=== PATIENT | female | born 1945 | race Two or more races ===

== ENCOUNTER 2016-12-31 20:58 | Inpatient (IN) | payer OTHER ==
--- NOTE | 2016-12-31 21:16 | EDPHY ---
H & P Stated Complaint: cough, asthma excaerbation Time Seen by Provider: 12/31/16 21:15 HPI/ROS: HPI: This is a 71-year-old female who presents with Chief Complaint: cough, asthma excaerbation Location: Chest Quality: Cough Duration: 2 weeks Signs and Symptoms: No fever, + dry hacking cough, no lower extremity edema, no chest pain, no palpitations Timing: Daily, worsening Severity: Moderate Context: Patient has a history heart valve replacement on Coumadin and asthma presents with her granddaughter for complaints of dry hacking cough for the last 2 weeks despite taking her medications consisting of furosemide, metoprolol , albuterol and Qvar inhalers. Patient denies fever but has had fatigue, decreased appetite and dull aching headache. No family members are sick and patient has not traveled outside of the country. She moved to [place] from [place] approximately 4 months ago. She denies any recent weight gain. She has never had a heart attack. Modifying Factors: Regular home medications for which patient is compliant Comment: ROS: see HPI Constitutional: No fever, no chills, no weight loss Eyes: No blurred vision Respiratory: No shortness of breath, no cough Cardiovascular: No chest pain Gastrointestinal: No nausea, no vomiting, no diarrhea Genitourinary: No dysuria Extremities: No myalgias Neurologic: No weakness, no numbness Skin: No rashes Hematologic: No bruising, no bleeding MEDICAL/SURGICAL/SOCIAL HISTORY: Medical history: Hypertension, asthma, chronic anticoagulation Surgical history: Heart valve replacement Social history: Lives with her child and grandchild. CONSTITUTIONAL: Ill-appearing elderly female, awake and alert, no obvious distress HEENT: Atraumatic and normocephalic, PERRL, EOMI. Tympanic membranes clear. Oropharynx clear, no exudate and moist pink mucosa. Airway patent. No lymphadenopathy. No meningismus. Cardiovascular: Normal S1/S2, regular rate, regular rhythm, without murmur rub or gallop. PULMONARY/CHEST: Symmetrical and nontender. Bilateral rales heard. Good air movement. No accessory muscle usage. Dry hacking cough noted. ABDOMEN: Soft, nondistended, nontender, no rebound, no guarding, no peritoneal signs, no masses or organomegaly. No CVAT. EXTREMITIES: 2/2 pulses, strength 5/5, no deformities, no clubbing, no cyanosis or edema. NEUROLOGICAL: no focal neuro deficits. GCS 15. SKIN: Warm and dry, no erythema. no rash. Good capillary refill. Source: Patient, Family (granddaughter), Quantitative Analyst Exam Limitations: No limitations - Medical/Surgical History Hx Asthma: Yes Hx Chronic Respiratory Disease: No Hx Diabetes: No Hx Cardiac Disease: Yes Hx Renal Disease: No Hx Cirrhosis: No Hx Alcoholism: No Hx HIV/AIDS: No Hx Splenectomy or Spleen Trauma: No Other PMH: asthma, - Social History Smoking Status: Never smoked Constitutional: Initial Vital Signs Temperature (C) 36.6 C 12/31/16 21:05 Heart Rate 96 12/31/16 21:05 Respiratory Rate 20 12/31/16 21:05 Blood Pressure 105/76 12/31/16 21:05 O2 Sat (%) 90 L 12/31/16 21:05 O2 Delivery Mode Room Air Allergies/Adverse Reactions: No Known Allergies Allergy (Unverified 12/31/16 21:02) Home Medications: Medication Instructions Recorded Albuterol 12/31/16 Combivent Respimat Inhal [place](*) 12/31/16 Coumadin 12/31/16 Furosemide 12/31/16 Metoprolol Succinate 12/31/16 Proair Hfa 12/31/16 Qvar 12/31/16 Spironolactone 12/31/16 Medical Decision Making - Diagnostics Imaging Results: Imaging Impressions Chest X-Ray 12/31/16 21:14 Impression: 1. Cardiomegaly versus pericardial effusion. No failure or fluid overload. 2. No pneumonia. ED Course/Re-evaluation: Chest x-ray, labs, IV and nebulizer medications ordered Vital signs reviewed upon arrival and O2 sats are 90% on room air. Differential includes CHF exacerbation 9: Chest x-ray via radiologist shows cardiomegaly versus pericardial effusion Labs reviewed; INR 3.04 ProBNP significantly elevated; given IV Lasix 40 mg as patient is new to the area no prior echocardiogram to determine LV function; will need one upon admission 2252: ED decision to consult for admission. Spoke with hospitalist, Dr. Michelle Huang, who kindly agrees to admit to observation status and provide further care Differential Diagnosis: Shortness of breath including but not limited to pulmonary infectious process, COPD, asthma, pulmonary embolus and congestive heart failure. - Data Points Laboratory Results: Laboratory Results 12/31/16 22:00 12/31/16 22:00 12/31/16 12/31/16 12/31/16 22:00 22:00 22:00 WBC 5.99 10^3/uL 10^3/uL (3.80-9.50) RBC 4.51 10^6/uL 10^6/uL (4.18-5.33) Hgb 13.7 g/dL g/dL (12.6-16.3) Hct 42.5 % % (38.0-47.0) MCV 94.2 fL fL (81.5-99.8) MCH 30.4 pg pg (27.9-34.1) MCHC 32.2 g/dL L g/dL (32.4-36.7) RDW 13.7 % % (11.5-15.2) Plt Count 121 10^3/uL L 10^3/uL (150-400) MPV 10.4 fL fL (8.7-11.7) Neut % (Auto) 58.7 % % (39.3-74.2) Lymph % (Auto) 20.0 % % (15.0-45.0) Bowie % (Auto) 9.7 % % (4.5-13.0) Eos % (Auto) 10.7 % H % (0.6-7.6) Baso % (Auto) 0.7 % % (0.3-1.7) Nucleat RBC Rel Count 0.0 % % (0.0-0.2) Absolute Neuts (auto) 3.52 10^3/uL 10^3/uL (1.70-6.50) Absolute Lymphs (auto) 1.20 10^3/uL 10^3/uL (1.00-3.00) Absolute Monos (auto) 0.58 10^3/uL 10^3/uL (0.30-0.80) Absolute Eos (auto) 0.64 10^3/uL H 10^3/uL (0.03-0.40) Absolute Basos (auto) 0.04 10^3/uL 10^3/uL (0.02-0.10) Absolute Nucleated RBC 0.00 10^3/uL 10^3/uL (0-0.01) Immature Gran % 0.2 % % (0.0-1.1) Immature Gran # 0.01 10^3/uL 10^3/uL (0.00-0.10) PT 31.9 SEC H SEC (12.0-15.0) INR 3.04 H (0.83-1.16) D-Dimer 0.32 ug/mLFEU ug/mLFEU (0.00-0.50) Sodium 137 mEq/L mEq/L (134-144) Potassium 4.4 mEq/L mEq/L (3.5-5.2) Chloride 97 mEq/L mEq/L (97-110) Carbon Dioxide 27 mEq/l mEq/l (22-31) Anion Gap 13 mEq/L mEq/L (8-16) BUN 13 mg/dL mg/dL (7-23) Creatinine 0.9 mg/dL mg/dL (0.6-1.0) Estimated GFR > 60 Glucose 106 mg/dL H mg/dL (70-100) Calcium 9.2 mg/dL mg/dL (8.5-10.4) Troponin I < 0.012 ng/mL ng/mL (0.000-0.034) NT-Pro-B Natriuret Pep 3280 pg/mL H pg/mL (0-125) Medications Given: Discontinued Medications Albuterol/Ipratropium (Duoneb) 3 ml IH EDNOW ONE Stop: 12/31/16 21:23 Last Admin: 12/31/16 22:35 Dose: 3 ml Methylprednisolone Sodium Succinate (Solu-Medrol) 125 mg IVP EDNOW ONE Stop: 12/31/16 21:22 Last Admin: 12/31/16 22:35 Dose: 125 mg Departure - Departure Disposition: [facility] Acute Clinical Impression: Hypoxia Acute on chronic congestive heart failure Qualifiers: Congestive heart failure type: unspecified congestive heart failure type Qualified Code(s): I50.9 - Heart failure, unspecified
[2016-12-31] MEDS ORDERED: methylPREDNISolone SOD SUCC 125 MG/2 ML VIAL IVP ONE (21:21)
[2016-12-31] MEDS ORDERED: IPRATROPIUM/ALBUTEROL 3 ML DEYVIAL IH ONE (21:22)
[2016-12-31 22:15] LABS: % IMMATURE GRANULYOCYTES 0.2 % (0.0-1.1); ABSOLUTE IMMATURE GRANULOCYTES 0.01 10^3/uL (0.00-0.10); ADD DIFF? NO; ADD MORPH? NO; ADD SCAN? NO; ATYPICAL LYMPHOCYTE FLAG 10 (0-99); FRAGMENT RBC FLAG 0 (0-99); HEMATOCRIT 42.5 % (38.0-47.0); HEMOGLOBIN 13.7 g/dL (12.6-16.3); LEFT SHIFT FLG 0 (0-99); LIPEMIA HEMOLYSIS FLAG 80 (0-99); MEAN CELL HEMOGLOBIN 30.4 pg (27.9-34.1); MEAN CELL HEMOGLOBIN CONCENTR. 32.2 g/dL (32.4-36.7); MEAN CELL VOLUME 94.2 fL (81.5-99.8); MEAN PLATELET VOLUME 10.4 fL (8.7-11.7); PLATELET CLUMPS FLAG 0 (0-99); PLATELET COUNT 121 10^3/uL (150-400); RED BLOOD CELL COUNT 4.51 10^6/uL (4.18-5.33); RED CELL DISTRIBUTION WIDTH 13.7 % (11.5-15.2)
[2016-12-31 22:24] LABS: INR 3.04 (0.83-1.16); PROTIME(PATIENT) 31.9 SEC (12.0-15.0)
[2016-12-31 22:34] LABS: ANION GAP 13 mEq/L (8-16); CALCIUM 9.2 mg/dL (8.5-10.4); CARBON DIOXIDE 27 mEq/l (22-31); CHLORIDE 97 mEq/L (97-110); CREATININE 0.9 mg/dL (0.6-1.0); GLOMERULAR FILTRATION RATE > 60; GLUCOSE 106 mg/dL (70-100); POTASSIUM 4.4 mEq/L (3.5-5.2); SODIUM 137 mEq/L (134-144)
[2016-12-31 22:45] LABS: TROPONIN I < 0.012 ng/mL (0.000-0.034)
[2016-12-31] MEDS ORDERED: FUROSEMIDE 40 MG/4 ML VIAL IVP ONE (22:48)
--- NOTE | 2016-12-31 23:14 | CPEKG ---
Heart Rate: 100 RR Interval: 600 QRSD Interval: 80 QT Interval: 356 QTC Interval: 460 QRS [place]: 164 T Wave [place]: 34 EKG Severity - ABNORMAL ECG - EKG Impression: ATRIAL FIBRILLATION, V-RATE 75-124 EKG Impression: LEFT POSTERIOR FASCICULAR BLOCK Electronically Signed By: Elizabeth Huang 01-Jan-2017 00:06:33
[2017-01-01] MEDS ORDERED: ACETAMINOPHEN 325 MG TAB PO PRN (00:01)
[2017-01-01] MEDS ORDERED: HYDROCODONE/APAP 5/325 TAB PO PRN (00:01)
[2017-01-01] MEDS ORDERED: ONDANSETRON 4 MG/2 ML VIAL IVP PRN (00:01)
[2017-01-01] MEDS ORDERED: ALBUTEROL 3 ML DEYVIAL IH PRN (00:01)
--- NOTE | 2017-01-01 04:26 | GHP ---
[f rep st] HISTORY AND PHYSICAL DATE OF ADMISSION: 12/31/2016 SOURCE: Patient provides history, appears reliable. She is primarily Estonian-speaking, but does und erstand Khmer. Daughter is at bedside and supplements some details. CHIEF COMPLAINT: Cough and shortness of breath. HISTORY OF PRESENT ILLNESS: This is a very pleasant 71-year-old female, who presents to the emergenc y department today with complaints of worsening shortness of breath and cough ongoing for the past se veral days to weeks. The patient reports she has had a dry cough and thought she was having an asthm a exacerbation. More recently, patient has had some subjective fevers, chills, nausea, fatigue and d ecreased appetite. The patient also endorses some pleuritic-type substernal chest pain, worse with c ough and deep breathing. She also reports intermittent episodes of palpitations. The patient denies any edema. However, nursing staff had noted some mild edema in her lower extremities. The patient denies any acute changes in weight. Patient is on chronic Coumadin for history of valve replacement. Although patient and daughter deny hearing diagnosis of atrial fibrillation when asked regarding sy mptoms of palpitations, they report that these symptoms have been ongoing for some time, so suspect reed perez has known history of atrial fibrillation in addition. The patient is on is metoprolol b.i.d. The patient and daughter also endorse positive sick contacts with similar symptoms of cough, rhinorr hea, congestion, fevers, chills of her granddaughter, who lives with the patient and her daughter. S he denies any diarrhea, does note some abdominal aching related to her uncontrolled coughing. The luis eduardo bucio also endorses PND and orthopnea and has had to sit up almost upright per the daughter. Both de ny any known history of ever having had an echocardiogram, only x-rays. REVIEW OF SYSTEMS: GENERAL: Subjective fevers, chills, fatigue, and decreased appetite. SKIN: No rashes or sores. ENT: Patient with complaints of congestion, rhinorrhea, and sore throat from cough ing. EYES: Patient denies any acute changes in vision or ocular pain. CV: Patient reports palpita tions and pleuritic chest pain as noted above. Positive orthopnea, PND as above. RESPIRATORY: Posi tive for cough, shortness of breath. See HPI. GI: Positive for nausea, vomiting without any diarrh ea and diffuse abdominal pain related to coughing. : No dysuria or hematuria. MUSCULOSKELETAL: Patient complains of generalized weakness. No focal deficits. No myalgias. NEURO: Patient reports headache. No numbness and tingling. No focal deficits. PSYCH: Negative for mental health issues. Remainder of review of systems negative, except as above. ALLERGIES: No known drug allergies. HOME MEDICATIONS: Daughter brought bottles to bedside: 1. Spironolactone 25 mg p.o. daily. 2. Qvar 80 one puff b.i.d. 3. Coumadin 1 mg 1-2 tabs p.o. daily per schedule. 4. Combivent Respimat p.r.n. 5. ProAir p.r.n. 6. Furosemide 40 mg p.o. daily. 7. Aspirin 81 mg p.o. daily. 8. Metoprolol 50 mg p.o. daily. PAST MEDICAL HISTORY: Asthma, possible atrial fibrillation with reported history of chronic intermit tent palpitations, history of valve replacement on chronic anticoagulation with Coumadin, benign esse ntial hypertension. PAST SURGICAL HISTORY: Significant for valve replacement. No other surgical procedures. FAMILY HISTORY: Mother with heart disease. SOCIAL HISTORY: Patient recently moved from [place] 4 months ago to live with her daughter and gr anddaughter here in [place]. She does not smoke, drink, or do drugs. CODE STATUS: Full. PHYSICAL EXAMINATION: VITALS: On arrival, blood pressure 105/76, heart rate 96, O2 saturation 90% o n room air with a temperature of 36.6. Current vitals available, blood pressure 112/72, heart rate 9 4, respiratory rate 18, O2 saturation 97% on 2 L by nasal cannula. GENERAL: No acute distress, plea kevin, chronically ill-appearing female, who appears older than stated age, is resting quietly in bed with some minimal increased work of breathing. Daughters attentive at bedside. HEAD: Normocephalic , atraumatic. EYES: Extraocular muscles grossly intact. No scleral icterus or conjunctival injecti on. Pupils equal, round, reactive to light bilaterally and symmetric. ENT: Mucous membranes appear dry. Some nasal congestion. Clear rhinorrhea. NECK: Supple. Trachea midline. CV: Patient was regular rate and rhythm, slightly decreased heart sounds. No murmurs appreciated. The patient has e levated JVD. No lower extremity edema, 1+ pedal pulses. RESPIRATORY: Patient with diffuse wheezing , mildly audible. She does have intermittent coughing, nonproductive, mild increased work of breathi ng, but no acute distress. ABDOMEN: Positive bowel sounds. Soft, mildly distended, but soft. : No suprapubic tenderness to palpation. No Medel catheter. NEURO: Grossly nonfocal. Moves all ext remities. Cranial nerves also grossly normal. No facial drooping. Patient awake, alert, and orient ed x4. PSYCH: Patient cooperative, pleasant, asks appropriate questions, oriented x4. LABORATORY STUDIES: WBC 5.9, H and H 13.3 and 42.5, MCV 94.2, platelet count is 121. No bands. PT is 21.9, INR is 3.04. D-dimer is 0.32. Sodium 137, potassium 4.4, chloride 97, CO2 is 27, anion gap 13, BUN 13, creatinine 0.9, GFR greater than 60, glucose 106, calcium 9.2. Troponin is negative. BTNP is 3280. STUDIES: EKG showing atrial fibrillation, rate 100. No acute ST changes. Left posterior fascicular block. QTc 460. Chest x-ray image, reviewed myself, as well as radiology report, showing cardiomegaly versus pericard ial effusion. No failure or fluid overload and no pneumonia present. ASSESSMENT AND PLAN: Lauryn 71-year-old female presents with several days of cough, shortness of b reath. 1. Asthma exacerbation. The patient received Solu-Medrol in the emergency department. We will cont inue with prednisone and do a nebulizer treatment and with albuterol p.r.n. Resume oral medications once improved. 2. Viral upper respiratory infection with positive basic exposure. Patient reports that she has rec eived her flu vaccine and Pneumovax. She is afebrile here. Supportive care. 3. Congestive heart failure exacerbation, not otherwise specified versus pericardial effusion on kofi st x-ray. Patient reports no previous history of echocardiogram, but is on multiple diuretics. We w ill obtain the echocardiogram in the morning to evaluate for possible effusion and failure. BTNP is elevated. Patient with jugular venous distention and RN reports previously with some lower extremity edema, which is improved. Continue with diuresis and fluid restriction at this time. 4. History of artificial valve. Continue Coumadin. INR currently therapeutic, goal 2.5 to 3.5. armacy consultation to assist with dosing. 5. Chronic anticoagulation as above. 6. Benign essential hypertension. Blood pressures at this time are controlled. Will plan to resume patient's metoprolol for rate control and continue diuresis, monitoring blood pressures. 7. Possible history of atrial fibrillation. However, daughter and patient are not familiar with thi s specific diagnosis, although they do report that the patient has a longstanding history of intermit tent palpitations and so suspect she has some underlying atrial fibrillation, but unable to verify at this time. Continue with metoprolol for rate control. Monitor closely. 8. Thrombocytopenia, likely related to patient's use of chronic anticoagulation. She is without any evidence of active bleeding. We will continue to monitor CBC. 9. Fluid, electrolyte, nutrition. Fluid restriction at this time. Electrolyte replacement if neede d and cardiac diet with salt restriction. 10. Prophylaxis. Sequential compression devices as tolerated on Coumadin with therapeutic INR. 11. Code status is full. 12. Disposition. Patient will be admitted to observation on medical floor with remote telemetry at this time, pending further evaluation of her echocardiogram. /[id number]/MODL
[2017-01-01 05:42] LABS: ABSOLUTE IMMATURE GRANULOCYTES 0.06 10^3/uL (0.00-0.10); ADD DIFF? NO; ADD MORPH? NO; ADD SCAN? NO; ATYPICAL LYMPHOCYTE FLAG 0 (0-99); FRAGMENT RBC FLAG 0 (0-99); HEMATOCRIT 43.7 % (38.0-47.0); HEMOGLOBIN 13.8 g/dL (12.6-16.3); LEFT SHIFT FLG 10 (0-99); LIPEMIA HEMOLYSIS FLAG 80 (0-99); MEAN CELL HEMOGLOBIN 29.4 pg (27.9-34.1); MEAN CELL HEMOGLOBIN CONCENTR. 31.6 g/dL (32.4-36.7); MEAN CELL VOLUME 93.2 fL (81.5-99.8); MEAN PLATELET VOLUME 10.9 fL (8.7-11.7); PLATELET CLUMPS FLAG 10 (0-99); PLATELET COUNT 123 10^3/uL (150-400); RED BLOOD CELL COUNT 4.69 10^6/uL (4.18-5.33); RED CELL DISTRIBUTION WIDTH 13.7 % (11.5-15.2)
[2017-01-01 05:59] LABS: ANION GAP 14 mEq/L (8-16); CALCIUM 9.4 mg/dL (8.5-10.4); CARBON DIOXIDE 28 mEq/l (22-31); CHLORIDE 100 mEq/L (97-110); CREATININE 0.7 mg/dL (0.6-1.0); GLOMERULAR FILTRATION RATE > 60; GLUCOSE 188 mg/dL (70-100); POTASSIUM 4.4 mEq/L (3.5-5.2); SODIUM 142 mEq/L (134-144)
[2017-01-01 06:19] LABS: APTT 37.8 SEC (23.0-38.0); INR 2.74 (0.83-1.16); PROTIME(PATIENT) 29.3 SEC (12.0-15.0)
[2017-01-01] MEDS: FUROSEMIDE 40 MG/4 ML VIAL IVP SCH ×2 (06:47→17:01)
[2017-01-01] MEDS ORDERED: methylPREDNISolone SOD SUCC 125 MG/2 ML VIAL ONE (08:12)
[2017-01-01] MEDS: methylPREDNISolone SOD SUCC 125 MG/2 ML VIAL IVP SCH ×3 (08:15→21:56)
[2017-01-01] MEDS ORDERED: DILTIAZEM 125 MG in D5W 125 ML IV SCH (08:15)
[2017-01-01] MEDS ORDERED: DILTIAZEM 25 MG/5 ML VIAL IVP SCH ×2 (08:15→11:00)
--- NOTE | 2017-01-01 08:29 | CPEKG ---
Heart Rate: 151 RR Interval: 397 QRSD Interval: 86 QT Interval: 316 QTC Interval: 502 QRS [place]: 152 T Wave [place]: -4 EKG Severity - ABNORMAL ECG - EKG Impression: ATRIAL FIBRILLATION WITH RAPID V-RATE EKG Impression: RIGHT AXIS DEVIATION EKG Impression: ST DEPRESSION, PROBABLY RATE RELATED Electronically Signed By: Pietro Dugan 02-Jan-2017 09:45:40
[2017-01-01] MEDS: DILTIAZEM 30 MG TAB PO SCH ×4 (08:34→23:59)
[2017-01-01] MEDS ORDERED: BECLOMETHASONE QVAR 80 MDI IH SCH (09:00)
[2017-01-01] MEDS ORDERED: METOPROLOL TARTRATE 50 MG TAB PO SCH (09:00)
[2017-01-01] MEDS ORDERED: SPIRONOLACTONE 25 MG TAB PO SCH (09:00)
[2017-01-01] MEDS ORDERED: predniSONE 20 MG TAB PO SCH (09:00)
--- NOTE | 2017-01-01 09:01 | HOSPPROG ---
Hospitalist Progress Note Assessment/Plan: Acute hypoxemic respiratory failure secondary to acute exacerbation of asthma +/ - HF: Suspect viral URI. Increased WOB this am and rapid HR this am. S/P neb / STAT team. -IV solumedrol BID -schedule duonebs, prn albuterol nebs -resume QVAR -add singulair -send respiratory viral panel, r/o influenza given recent fever Rapid A fib: ?new diagnosis, suspect she has paroxysmal a fib. She is already anticoagulated with therapeutic INR, on BB. -check echo to eval valves and r/o pericardial effusion given cardiomegaly on CXR -send TSH -change metoprolol to diltiazem given worsening asthma, give oral dose now and will initiate drip with bolus if needed upon arrival to PCU -cont coumadin, pharmacy to dose -transfer to PCU for telemetry monitoring -cardiology consult requested for tomorrow, discussed case with Dr. Dugan Hypertension: currently normotensive -changing BB to dilt as above Chronic diastolic heart failure: No e/o pulmonary edema on CXR, but note elevated BNP. She was volume up on arrival, appears euvolemic to hypervolemic this am after IV Lasix -cont lasix, can probably change to outpt oral dose tomorrow -monitor I&O, daily weights -echo pending H/O AVR - echo as above Full code Dispo - change to inpt, will require ongoing hospitalization for acute respiratory failure, asthma exacerbation and rapid A fib A total of 40 minutes was spent providing face to face care and discussing care plan with pt and family Subjective: Pt with increased HR this am, STAT team called. She does feel palpitations, still with some increased WOB. Endorses some chest pressure. Objective: Vital Signs Temp Pulse Resp BP Pulse Ox 36.6 C 155 H 22 H 103/71 94 01/01/17 07:27 01/01/17 08:42 01/01/17 08:42 01/01/17 08:34 01/01/17 08:42 Laboratory Results 01/01/17 05:09 01/01/17 05:09 12/31/16 01/01/17 01/02/17 05:59 05:59 04:59 Intake Total 400 Balance 400 PT 29.3 SEC (12.0-15.0) H 01/01/17 05:09 INR 2.74 (0.83-1.16) H 01/01/17 05:09 - Physical Exam Constitutional: no apparent distress Eyes: PERRL Ears, Nose, Mouth, Throat: moist mucous membranes Cardiovascular: irregularly irregular Respiratory: expiratory wheeze, respiratory distress Gastrointestinal: normoactive bowel sounds, soft, non-tender abdomen Skin: warm Musculoskeletal: full muscle strength Neurologic: AAOx3 Psychiatric: interacting appropriately ICD10 Worksheet Patient Problems: Problems Problem Status Onset Acute on chronic congestive heart failure Acute Hypoxia Acute
[2017-01-01 09:20] LABS: TROPONIN I < 0.012 ng/mL (0.000-0.034)
--- NOTE | 2017-01-01 09:50 | PDMN ---
Medical Necessity Medical necessity: C/M review: Patient meets INPT criteria under MCG M-60 Asthma , M-505 Atrial fibrillation; Acute and persistent hypoxic respiratory failure secondary to acute asthma exacerbation, viral upper respiratory infection suspected, wheezing, increased work of breathing acute and persistent atrial fibrillation with rapid ventricular response - questionable new diagnosis, heart rate 115-155, requiring 01/01/2017 AM STAT team to bedside, transfer to PCU , ongoing IV Solmedrol BID, IV Lasix BID, V Diltiazem infusion, Duonebs QID, cardiac monitoring, pule oximetry, supplemental O2, comorbid chronic diastolic heart failure, hypertension, hx AVR. anticipates > 2 MN LOS for ongoing med nec for eval and TX of above.
--- NOTE | 2017-01-01 10:05 | ECHO ---
[email or web address] [address] [address] Main: [phone] Fax: [email or web address] Echocardiogram Name: CORNEL SANDHU MR#: [id number] Study Date: 01/01/2017 Study Time: 08:32 AM Date of : 1945 Age: 71 year(s) Height: 144.8 cm (57 in.) Weight: 58.97 kg (130 lb.) BSA: 1.5 m2 Gender: Female Examination: Echo Indication: CHF, Atrial Fibrillation Image Quality: Adequate Contrast: Requested by: Michelle Huang BP: 109 mmHg/71 mmHg Heart Rate: Rhythm: Atrial fibrillation Indication: CHF, Atrial Fibrillation Procedure Staff Beef Cattle Specialist: Rosy Silva Reading Physician: Jonathan Golden Requesting Provider: Conclusions: Normal global systolic LV function. Unable to assess diastolic dysfunction. The left atrium is severely dilated. The right atrium is moderately to severely dilated. There is moderate thickening of the mitral valve leaflets. 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 Moderate mitral valve stenosis is present. Severe mitral valve regurgitation is present. Mean gradient across the mitral valve may overestimate degree of mitral stenosis due to rapid heart rate.. Severe tricuspid regurgitation is present. Right ventricular systolic pressure measures 46mmHg. Measurements: Chambers Valvular Assessment AV/MV Valvular Assessment TV/PV Normal Normal Normal Name Value Range Name Value Range Name Value Range Ao Kelli (2D): 3.2 cm (1.4 cm-2.6 AV Vmax: 1.39 m/s (1 m/s-1.7 TR Vmax: 2.80 mm/s ( - ) cm) m/s) TR PGmax: 31 mmHg ( - ) IVSd (2D): 0.9 cm (0.6 cm-1.1 AV maxP mmHg ( - ) syst. PAP: 46 mmHg ( - ) cm) LVOT Vmax: 0.84 m/s (0.7 m/s-1.1 LVDd (2D): 3.7 cm (3.9 cm-5.3 m/s) cm) ALANNA (Vmax): 1.7 cm2 ( - ) LVDs (2D): 2.3 cm (2.1 cm-4 MV meanP mmHg ( - ) cm) MV PHT: 0.074 s ( - ) LVPWd (2D): 1.1 cm ( - ) MVA (PHT): 3.0 s ( - ) LVOTd 1.9 cm 1.9 cm mm LVEF (2D): 68 (>=54 %) RVDd(2D): 4.0 cm (1.9 cm-3.8 cmmm) Patient: CORNEL SANDHU Study Date: 01/01/2017 Page 1 of 2 08:32 AM Continued Measurements: Chambers Valvular Assessment AV/MV Valvular Assessment TV/PV Name Value Name Value Name Value LADs Lon.6 cm MV VTI: 35.50 cm CVP (est.): 15 mmHg LA Area: 39.4 cm2 MR Vena Contracta: 0.5 cm LA Volume: 160 ml LA Volume Index: 106.7 ml/m2 RA Area: 25.1 cm2 Findings: Left Ventricle: Normal size left ventricle. No LV hypertrophy. Normal global systolic LV function. EF is 68 %. No regional wall motion abnormality. Unable to assess diastolic dysfunction. Right Ventricle: Upper normal size right ventricle. Normal RV function. Left Atrium: The left atrium is severely dilated. Right Atrium: The right atrium is moderately to severely dilated. Mitral Valve: There is moderate thickening of the mitral valve leaflets. 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 Moderate mitral valve stenosis is present. Severe mitral valve regurgitation is present. Mean gradient across the mitral valve may overestimate degree of mitral stenosis due to rapid heart rate.. Aortic Valve: The aortic valve is tri-leaflet. Aortic sclerosis is present. No aortic valve stenosis is present. There is no aortic valve regurgitation. Tricuspid Valve: The tricuspid valve appears normal. Severe tricuspid regurgitation is present. The pulmonary artery pressure is moderately increased. Right ventricular systolic pressure measures 46mmHg. Pulmonic Valve: Pulmonary valve not well visualized. Aorta: Normal size aortic root measuring 3.2 cm. IVC: The IVC is moderately dilated. There is less than 50% respiratory excursion. Pericardium: No pericardial effusion. (No Signature Object) Patient: CORNEL SANDHU Study Date: 01/01/2017 Page 2 of 2 08:32 AM [id number]
[2017-01-01] MEDS ORDERED: LEVALBUTEROL 1.25 MG/3 ML DEYVIAL IH PRN (10:27)
[2017-01-01] MEDS: ASPIRIN EC 81 MG TAB PO SCH (10:58)
[2017-01-01] MEDS: IPRATROPIUM/ALBUTEROL 3 ML DEYVIAL IH SCH ×4 (13:27→21:40)
[2017-01-01] MEDS ORDERED: WARFARIN SODIUM 1 MG TAB PO SCH (16:00)
[2017-01-01] MEDS: MONTELUKAST SODIUM 10 MG TAB PO SCH (17:45)
[2017-01-01] MEDS: BECLOMETHASONE QVAR 80 MDI IH SCH (21:41)
[2017-01-02] MEDS: IPRATROPIUM/ALBUTEROL 3 ML DEYVIAL IH SCH ×6 (01:44→21:12)
[2017-01-02 04:35] LABS: INR 2.45 (0.83-1.16); PROTIME(PATIENT) 26.8 SEC (12.0-15.0)
[2017-01-02 04:48] LABS: ANION GAP 15 mEq/L (8-16); CALCIUM 9.2 mg/dL (8.5-10.4); CARBON DIOXIDE 27 mEq/l (22-31); CHLORIDE 98 mEq/L (97-110); CREATININE 0.8 mg/dL (0.6-1.0); GLOMERULAR FILTRATION RATE > 60; GLUCOSE 226 mg/dL (70-100); POTASSIUM 4.5 mEq/L (3.5-5.2); SODIUM 140 mEq/L (134-144)
[2017-01-02] MEDS: FUROSEMIDE 40 MG/4 ML VIAL IVP SCH (06:38)
[2017-01-02] MEDS: DILTIAZEM 30 MG TAB PO SCH ×3 (06:38→18:04)
[2017-01-02] MEDS ORDERED: DILTIAZEM 30 MG TAB PO ONE (08:11)
--- NOTE | 2017-01-02 08:15 | HOSPPROG ---
Hospitalist Progress Note Assessment/Plan: Acute hypoxemic respiratory failure secondary to acute exacerbation of asthma +/ - HF: +rhino/enterovirus. Respiratory status improved this am, but still wheezing. -change to oral pred -cont scheduled duonebs, prn albuterol nebs, QVAR -added singulair -wean O2 as able Rapid A fib: ?new diagnosis, suspect she has paroxysmal a fib. Likely valvular. She is anticoagulated with therapeutic INR. -changed metoprolol to diltiazem given asthma exacerbation -cont coumadin, pharmacy to dose -telemetry monitoring personally reviewed / interpreted, a fib rate 80-90s on low dose dilt drip, 120's off drip -dilt drip d/c'd, increase oral dilt to 60 q6h -cardiology consult requested, discussed case with Dr. Dugan Hypertension: currently normotensive -changed BB to dilt Chronic diastolic heart failure: No e/o pulmonary edema on CXR, but note elevated BNP. She was volume up on arrival, appears euvolemic today after IV Lasix. Nl LV function on echo yesterday, unable to assess diastolic dysfunction. -change to oral lasix -monitor I&O, daily weights Hyperglycemia: no prior diagnosis of DM, likely hastened by steroids. -check a1c -low dose SSI H/O AVR - echo with multiple valve abnormalities including ?rheumatic mitral valve dz, severe MR, TR and biatrial dilation -cards to consult Full code Dispo - cont inpt, PCU Subjective: PT feels better. Still coughing and wheezing. No CP. No fevers. Objective: Vital Signs Temp Pulse Resp BP Pulse Ox 36.9 C 95 18 111/68 98 01/02/17 05:02 01/02/17 05:49 01/02/17 05:49 01/02/17 05:02 01/02/17 05:49 Microbiology 01/01/17 10:15 Respiratory Panel (PCR) - Final Nasal, Sinus - [place] Viral Transport Human Rhinovirus/Enterovirus Laboratory Results 01/02/17 04:18 01/01/17 01/02/17 01/03/17 06:59 05:59 05:59 Intake Total Balance PT 26.8 SEC (12.0-15.0) H 01/02/17 04:18 INR 2.45 (0.83-1.16) H 01/02/17 04:18 - Physical Exam Constitutional: no apparent distress Eyes: PERRL Ears, Nose, Mouth, Throat: moist mucous membranes Cardiovascular: systolic murmur, irregularly irregular Respiratory: no respiratory distress, reduced air movement, expiratory wheeze Gastrointestinal: normoactive bowel sounds, soft, non-tender abdomen Skin: warm Musculoskeletal: full muscle strength Neurologic: AAOx3 Psychiatric: interacting appropriately ICD10 Worksheet Patient Problems: Problems Problem Status Onset Acute on chronic congestive heart failure Acute Hypoxia Acute
[2017-01-02] MEDS ORDERED: D50W 25 GM/50 ML SYR IVP PRN (08:16)
[2017-01-02] MEDS: BECLOMETHASONE QVAR 80 MDI IH SCH ×2 (08:58→21:14)
[2017-01-02] MEDS ORDERED: predniSONE 20 MG TAB PO SCH (09:00)
[2017-01-02] MEDS: ASPIRIN EC 81 MG TAB PO SCH (09:33)
--- NOTE | 2017-01-02 10:46 | GCON ---
[f rep st] CONSULTATION DATE OF CONSULTATION: 01/02/2017 REFERRING PHYSICIAN: Jonathan Golden MD The patient is seen at the request of Dr. Golden with the patient's permission. IMPRESSION: 1. 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 2. Long-standing persistent atrial fibrillation on Coumadin secondary to valvular heart disease. 3. Excessive secondhand smoke exposure. 4. Chronic anticoagulation on Coumadin. 5. Asthma diagnosis, although she denies asthma as a child, and this may, in fact, represent pure co ngestive heart failure. RECOMMENDATIONS: This patient has very few options, presenting with congestive heart failure with du al valve regurgitation, portends a poor prognosis and a complicated medical history. If amenable, sarbjit mehta could undergo mitral valve replacement, tricuspid valve repair or replacement in consideration for a maze procedure, although given her atrial size, we will have to consider whether it is beneficial a nd whether she can resume atrial contractility. It is hard to know the duration of her atrial fibril lation, but her atria are markedly enlarged. Success has been achieved in some of these patients wit h atria as large as 8 cm. I will measure her atria in the echo lab. Granddaughter was present. The daughter and son-in-law are not present but will be available tomorro w. She is currently anticoagulated. I would discontinue the Coumadin and cover with Lovenox when he r INR drops below 1.7 until we decide whether surgery is warranted and indicated. She will need a le ft heart and right heart catheterization performed prior to surgery, as well as carotid ultrasounds. This was conducted with an hourly sign language interpreter. CHIEF COMPLAINT: Difficulty breathing. HISTORY OF CHIEF COMPLAINT: The patient is a poor historian, brought by her granddaughter, who state s that the patient was having more dyspnea on exertion. Since admission, her breathing has improved. She was administered steroids for presumed asthma, although the diuresis has been aggressive as wel l and has likely resulted in her improved breathing and less abdominal distention according to the luis eduardo bucio. PAST MEDICAL HISTORY: Medical history is as reviewed in the chart. She also has a history of hypert ension. PAST SURGICAL HISTORY: Denied. She did have a thoracentesis in [place] but was denied valve surg marco due to a lack of insurance. HOME MEDICATIONS: Spironolactone 25 daily, QVAR 80 mg 1 puff twice daily, Coumadin, Combivent, and P roAir. SOCIAL HISTORY: She never drank, never smoked. [facility] FAMILY HISTORY: Noncontributory. She denies known history of rheumatic fever. PHYSICAL EXAMINATION: GENERAL: Slender, very pleasant, very alert, female, quite cooperati ve but generally a poor historian. VITAL SIGNS: Blood pressure is 105/76, heart rate 84, respiratio ns 16, nonlabored. At the present time, O2 saturation was 96% on 2 L. HEENT: Normocephalic. Teeth appear to be in relatively good dentition. NECK: Carotids are without bruits. HEART: Heart rate is irregular with murmurs across the precordium. LUNGS: Diminished at the bases. ABDOMEN: Soft, n ontender. She states that abdominal distention has resolved since admission. EXTREMITIES: She has no peripheral edema. Pedal pulses are intact. RECTAL AND GENITAL: Deferred. LABORATORY DATA: Reviewed. Platelet count is 121. INR is prolonged, and Coumadin has been disconti nued. /[id number]/MODL
--- NOTE | 2017-01-02 11:21 | ASMTCMCOM ---
CM Note CM Note Notes: 71 year old [place] speaking female admitted for SOB, CHF exascerbation, palpitations. She has a hx of asthma, possible Afib, HTN, on chronic coagulation. CM to follow for possible discharge needs. Date Signed: 01/02/2017 11:20 AM Electronically Signed By:Kath Kimball LCSW
[2017-01-02] MEDS: INSULIN LISPRO 100 UNIT/ML SC SCH ×2 (14:15→18:04)
--- NOTE | 2017-01-02 14:17 | PDCARCONS ---
Cardiology Consult Reason for Consult: Dyspnea Chief Complaint: Dyspnea Requesting Physician: Dr. Estrella English History of Present Illness: 71 F, seen with her granddaughter and director of retail operations, nurse in room. Presented with dyspnea, improved with diuresis and rate control. Patient reports dyspnea x >10 years, denies chest pain. No syncope. Does not remember if she had rheumatic fever as child. History Information - Allergies/Home Medication List Allergies/Adverse Reactions: No Known Allergies Allergy (Unverified 12/31/16 21:02) Home Medications: Albuterol Hfa Anes Only [Proair Hfa Icu (*)] 2 puffs IH QID PRN 12/31/16 [Last Taken Unknown] Beclomethasone Qvar 80 [Qvar 80 (*)] 2 puffs IH BID 12/31/16 [Last Taken Unknown ] Furosemide [Lasix 40 MG (*)] 40 mg PO DAILY 12/31/16 [Last Taken Unknown] Ipratropium/Albuterol [Combivent Respimat Inhal [place](*)] 1 inh IH QID 12/31/16 [Last Taken Unknown] Metoprolol Tartrate [Lopressor 50 mg (*)] 50 mg PO BID 12/31/16 [Last Taken Unknown] Spironolactone [Aldactone 25 MG (*)] 25 mg PO DAILY 12/31/16 [Last Taken Unknown ] Warfarin Sodium [Coumadin 1MG (*)] 2 mg PO DAILY16 12/31/16 [Last Taken 09:00] Aspirin [Aspirin 81mg (*)] 81 mg PO DAILY 01/01/17 [Last Taken Unknown] I have personally reviewed and updated: family history, medical history, social history, surgical history Past Medical History: - Social History Smoking Status: Never smoked (Heavy second hand smoke exposure) Tobacco Use: Secondhand Alcohol Use: None Drug Use: None Physical Exam Physical Exam: Temp Pulse Resp BP Pulse Ox 36.7 C 125 H 12 95/78 L 97 01/02/17 12:00 01/02/17 12:00 01/02/17 12:00 01/02/17 12:00 01/02/17 12:00 O2 (L/minute) 2 Constitutional: not in pain Eyes: PERRL, EOMI Ears, Nose, Mouth, Throat: moist mucous membranes, hearing normal Cardiovascular: systolic murmur, irregularly irregular, JVD Respiratory: reduced air movement Gastrointestinal: soft, non-tender abdomen Neurologic: AAOx3 Psychiatric: not encephalopathic, thought process linear Lab and Imaging 01/01/17 05:09 01/02/17 04:18 WBC 6.04 10^3/uL (3.80-9.50) 01/01/17 05:09 RBC 4.69 10^6/uL (4.18-5.33) 01/01/17 05:09 Hgb 13.8 g/dL (12.6-16.3) 01/01/17 05:09 Hct 43.7 % (38.0-47.0) 01/01/17 05:09 MCV 93.2 fL (81.5-99.8) 01/01/17 05:09 MCH 29.4 pg (27.9-34.1) 01/01/17 05:09 MCHC 31.6 g/dL (32.4-36.7) L 01/01/17 05:09 RDW 13.7 % (11.5-15.2) 01/01/17 05:09 Plt Count 123 10^3/uL (150-400) L 01/01/17 05:09 MPV 10.9 fL (8.7-11.7) 01/01/17 05:09 Neut % (Auto) 88.6 % (39.3-74.2) H 01/01/17 05:09 Lymph % (Auto) 7.6 % (15.0-45.0) L 01/01/17 05:09 [place] % (Auto) 1.8 % (4.5-13.0) L 01/01/17 05:09 Eos % (Auto) 0.8 % (0.6-7.6) 01/01/17 05:09 Baso % (Auto) 0.2 % (0.3-1.7) L 01/01/17 05:09 Nucleat RBC Rel Count 0.0 % (0.0-0.2) 01/01/17 05:09 Absolute Neuts (auto) 5.35 10^3/uL (1.70-6.50) 01/01/17 05:09 Absolute Lymphs (auto) 0.46 10^3/uL (1.00-3.00) L 01/01/17 05:09 Absolute Monos (auto) 0.11 10^3/uL (0.30-0.80) L 01/01/17 05:09 Absolute Eos (auto) 0.05 10^3/uL (0.03-0.40) 01/01/17 05:09 Absolute Basos (auto) 0.01 10^3/uL (0.02-0.10) L 01/01/17 05:09 Absolute Nucleated RBC 0.00 10^3/uL (0-0.01) 01/01/17 05:09 Immature Gran % 1.0 % (0.0-1.1) 01/01/17 05:09 Immature Gran # 0.06 10^3/uL (0.00-0.10) 01/01/17 05:09 PT 26.8 SEC (12.0-15.0) H 01/02/17 04:18 INR 2.45 (0.83-1.16) H 01/02/17 04:18 APTT 37.8 SEC (23.0-38.0) 01/01/17 05:09 D-Dimer 0.32 ug/mLFEU (0.00-0.50) 12/31/16 22:00 Sodium 140 mEq/L (134-144) 01/02/17 04:18 Potassium 4.5 mEq/L (3.5-5.2) 01/02/17 04:18 Chloride 98 mEq/L (97-110) 01/02/17 04:18 Carbon Dioxide 27 mEq/l (22-31) 01/02/17 04:18 Anion Gap 15 mEq/L (8-16) 01/02/17 04:18 BUN 26 mg/dL (7-23) H 01/02/17 04:18 Creatinine 0.8 mg/dL (0.6-1.0) 01/02/17 04:18 Estimated GFR > 60 01/02/17 04:18 Glucose 226 mg/dL (70-100) H 01/02/17 04:18 Calcium 9.2 mg/dL (8.5-10.4) 01/02/17 04:18 Troponin I < 0.012 ng/mL (0.000-0.034) 01/01/17 16:10 NT-Pro-B Natriuret Pep 3280 pg/mL (0-125) H 12/31/16 22:00 TSH 0.764 uIU/mL (0.465-4.680) 01/01/17 08:45 Visualized and Interpreted Chest x-ray results: Yes Visualized and Interpreted EKG results: Yes EKG additional interpertation: Atrial fibrillation Echocardiogram: Severe MR Severe TR Moderate MS Mild RV enlargement, mild pulm HTN Normal LVEF Severe biatrial enlargement A/P Assessment: 1. Rheumatic valve disease - severe MR, moderate MS, severe TR 2. Pulmonary hypertension 3. Atrial fibrillation Plan: 1. Will hold warfarin and plan R+L heart catheterization for Tue/Tue based on INR 2. Needs mitral replacement and tricuspid repair + NICHOLE excision. Given severe biatrial enlargement, doubt would benefit from maze procedure. 3. Need to review records from [place]. She states she had a R thoracentesis , would like to review cytology (extensive second hand smoke exposure) prior to sending her to valve surgery. 4. Have d.w. Dr. Dow who also visited with patient.
[2017-01-02] MEDS: MONTELUKAST SODIUM 10 MG TAB PO SCH (18:04)
[2017-01-03] MEDS: DILTIAZEM 30 MG TAB PO SCH ×6 (00:57→22:55)
[2017-01-03] MEDS: IPRATROPIUM/ALBUTEROL 3 ML DEYVIAL IH SCH ×6 (01:35→22:01)
[2017-01-03 05:57] LABS: % IMMATURE GRANULYOCYTES 0.4 % (0.0-1.1); ABSOLUTE IMMATURE GRANULOCYTES 0.04 10^3/uL (0.00-0.10); ADD DIFF? NO; ADD MORPH? NO; ADD SCAN? NO; ATYPICAL LYMPHOCYTE FLAG 0 (0-99); FRAGMENT RBC FLAG 0 (0-99); HEMATOCRIT 41.9 % (38.0-47.0); HEMOGLOBIN 13.5 g/dL (12.6-16.3); LEFT SHIFT FLG 0 (0-99); LIPEMIA HEMOLYSIS FLAG 80 (0-99); MEAN CELL HEMOGLOBIN 29.8 pg (27.9-34.1); MEAN CELL HEMOGLOBIN CONCENTR. 32.2 g/dL (32.4-36.7); MEAN CELL VOLUME 92.5 fL (81.5-99.8); MEAN PLATELET VOLUME 10.9 fL (8.7-11.7); PLATELET CLUMPS FLAG 0 (0-99); PLATELET COUNT 141 10^3/uL (150-400); RED BLOOD CELL COUNT 4.53 10^6/uL (4.18-5.33); RED CELL DISTRIBUTION WIDTH 14.2 % (11.5-15.2)
[2017-01-03 06:08] LABS: ANION GAP 13 mEq/L (8-16); CALCIUM 9.3 mg/dL (8.5-10.4); CARBON DIOXIDE 29 mEq/l (22-31); CHLORIDE 98 mEq/L (97-110); CHOLESTEROL 119 mg/dL (140-220); CHOLESTEROL/HDL RATIO 2.77 RATIO (1.00-4.44); CREATININE 0.8 mg/dL (0.6-1.0); GLOMERULAR FILTRATION RATE > 60; GLUCOSE 166 mg/dL (70-100); HIGH DENSITY LIPOPROTEIN 43 mg/dL (40-85); LDL/HDL RATIO 1.26 RATIO (1.00-3.22); LOW DENSITY LIPOPROTEIN 54 mg/dL (80-100); MAGNESIUM 2.5 mg/dL (1.6-2.3); NON-HIGH DENSITY LIPOPROTEIN 76 mg/dL (90-129); POTASSIUM 4.8 mEq/L (3.5-5.2); SODIUM 140 mEq/L (134-144); TRIGLYCERIDE 114 mg/dL (35-135); VERY LOW DENSITY LIPOPROTEINS 22 mg/dL (8-25)
[2017-01-03 06:10] LABS: INR 1.93 (0.83-1.16); PROTIME(PATIENT) 22.2 SEC (12.0-15.0)
[2017-01-03] MEDS: INSULIN LISPRO 100 UNIT/ML SC SCH ×3 (08:31→18:19)
--- NOTE | 2017-01-03 08:49 | CPEKG ---
Heart Rate: 108 RR Interval: 556 QRSD Interval: 78 QT Interval: 344 QTC Interval: 461 QRS [place]: 107 T Wave [place]: 44 EKG Severity - ABNORMAL ECG - EKG Impression: ATRIAL FIBRILLATION, V-RATE 88-117 EKG Impression: VENTRICULAR PREMATURE COMPLEX EKG Impression: RIGHT AXIS DEVIATION Electronically Signed By: Pietro Dugan 03-Jan-2017 09:10:36
[2017-01-03] MEDS: BECLOMETHASONE QVAR 80 MDI IH SCH ×2 (09:45→22:01)
[2017-01-03] MEDS ORDERED: DILTIAZEM XR 240 MG CAP PO SCH (10:00)
--- NOTE | 2017-01-03 10:03 | HOSPPROG ---
Hospitalist Progress Note Assessment/Plan: Acute hypoxemic respiratory failure secondary to acute exacerbation of asthma +/ - HF: +rhino/enterovirus. Respiratory status improved this am, but still wheezing. -cont oral pred, decrease to 40 mg daily, plan for 5 day burst then off -cont scheduled duonebs, prn albuterol nebs, QVAR -added singulair -diurese, HF / valve dz management as below -wean O2 as able Rapid A fib: suspect she has valvular A fib. Rate improved. Coumadin held for heart cath and likely need for NICHOLE and valve replacement -changed metoprolol to diltiazem given suspected asthma exacerbation -cont short acting dilt today, change to long acting once clear not getting hypotensive -cont to hold coumadin, bridge with lovenox when INR <1.7 -telemetry monitoring personally reviewed / interpreted, a fib rate ~100 -appreciate cardiology assistance, will likely undergo NICHOLE ligation at time of valve surgery, see below VHD: echo shows severe MR/TR, no actual h/o AVR as previously reported -appreciate CV surgery consult -plan for L/R heart cath prior to valve surgery Chronic diastolic heart failure: No e/o pulmonary edema on CXR, but note elevated BNP. She was volume up on arrival, appears euvolemic today after IV Lasix. Note rising BUN. Nl LV function on echo yesterday, unable to assess diastolic dysfunction. -cont oral lasix -monitor bmp -monitor I&O, daily weights Hypertension: currently normotensive -cont dilt Hyperglycemia: no prior diagnosis of DM, likely hastened by steroids. -check a1c -low dose SSI Full code Dispo - cont inpt, PCU Subjective: Pt feels ok, appears a bit SOB, audible wheezing. No CP. No fevers. NPO this am for angiogram. Objective: Vital Signs Temp Pulse Resp BP Pulse Ox 36.6 C 102 H 17 114/77 96 01/03/17 08:00 01/03/17 09:46 01/03/17 09:46 01/03/17 08:00 01/03/17 09:46 Laboratory Results 01/03/17 05:07 01/03/17 05:07 01/02/17 01/03/17 01/04/17 05:59 05:59 05:59 Intake Total 300 Output Total 2100 Balance -1800 PT 22.2 SEC (12.0-15.0) H 01/03/17 05:07 INR 1.93 (0.83-1.16) H 01/03/17 05:07 - Physical Exam Constitutional: no apparent distress Eyes: PERRL Ears, Nose, Mouth, Throat: moist mucous membranes Cardiovascular: irregularly irregular Respiratory: no respiratory distress, expiratory wheeze, inspiratory crackles Gastrointestinal: normoactive bowel sounds, soft, non-tender abdomen Skin: warm Musculoskeletal: full muscle strength Neurologic: AAOx3 Psychiatric: interacting appropriately ICD10 Worksheet Patient Problems: Problems Problem Status Onset Acute on chronic congestive heart failure Acute Hypoxia Acute
[2017-01-03] MEDS: predniSONE 20 MG TAB PO SCH (10:05)
[2017-01-03] MEDS: FUROSEMIDE 40 MG TAB PO SCH (10:05)
[2017-01-03] MEDS: ASPIRIN EC 81 MG TAB PO SCH (10:05)
--- NOTE | 2017-01-03 17:14 | ASMTCMCOM ---
CM Note CM Note Notes: Pt will go for heart cath tomorrow (INR too high to go today). She may need valve surgery this admission- will know more tomorrow. Spiritual care saw pt today and did adv directives; MDPOA's appointed (2 dtrs and gr dtr). CARROLL w/f. Date Signed: 01/03/2017 05:13 PM Electronically Signed By:Nelly Luciano RN
[2017-01-03] MEDS ORDERED: DILTIAZEM 30 MG TAB PO ONE (17:34)
[2017-01-03] MEDS ORDERED: DILTIAZEM 125 MG in D5W 125 ML IV ONE (17:35)
[2017-01-03] MEDS: MONTELUKAST SODIUM 10 MG TAB PO SCH (19:34)
[2017-01-03] MEDS: BENZONATATE 100 MG CAP PO PRN (23:00)
[2017-01-04] MEDS: DILTIAZEM 30 MG TAB PO SCH ×4 (00:13→21:35)
[2017-01-04] MEDS: IPRATROPIUM/ALBUTEROL 3 ML DEYVIAL IH SCH ×6 (02:20→22:32)
[2017-01-04 04:39] LABS: INR 1.62 (0.83-1.16); PROTIME(PATIENT) 19.3 SEC (12.0-15.0)
[2017-01-04 04:50] LABS: HEMATOCRIT 40.5 % (38.0-47.0); HEMOGLOBIN 12.6 g/dL (12.6-16.3); MEAN CELL HEMOGLOBIN 28.9 pg (27.9-34.1); MEAN CELL HEMOGLOBIN CONCENTR. 31.1 g/dL (32.4-36.7); MEAN CELL VOLUME 92.9 fL (81.5-99.8); RED BLOOD CELL COUNT 4.36 10^6/uL (4.18-5.33)
[2017-01-04 05:06] LABS: ANION GAP 10 mEq/L (8-16); CALCIUM 8.8 mg/dL (8.5-10.4); CARBON DIOXIDE 33 mEq/l (22-31); CHLORIDE 98 mEq/L (97-110); CREATININE 0.7 mg/dL (0.6-1.0); GLOMERULAR FILTRATION RATE > 60; GLUCOSE 115 mg/dL (70-100); SODIUM 141 mEq/L (134-144)
[2017-01-04] MEDS: INSULIN LISPRO 100 UNIT/ML SC SCH ×3 (07:55→17:02)
[2017-01-04] MEDS: predniSONE 20 MG TAB PO SCH (08:32)
[2017-01-04] MEDS: ASPIRIN EC 81 MG TAB PO SCH (08:32)
[2017-01-04] MEDS: FUROSEMIDE 40 MG TAB PO SCH (08:32)
[2017-01-04] MEDS: BECLOMETHASONE QVAR 80 MDI IH SCH ×2 (09:25→22:35)
--- NOTE | 2017-01-04 12:45 | HOSPPROG ---
Hospitalist Progress Note Assessment/Plan: Acute hypoxemic respiratory failure secondary to acute exacerbation of asthma +/ - HF: +rhino/enterovirus. Respiratory status improved this am, but still wheezing. 3 LPM. -cont oral pred, decreased to 40 mg daily, day 4/5 -cont scheduled duonebs, prn albuterol nebs, QVAR -added singulair -diurese, HF / valve dz management as below -wean O2 as able Rapid A fib: suspect valvular A fib. Rate up to 110's. Coumadin held for heart cath and likely need for NICHOLE and valve replacement -changed metoprolol to diltiazem given suspected asthma exacerbation -cont dilt 60 q6h today, change to long acting dilt in am -consider addition of digoxin if additional rate control needed -cont to hold coumadin, bridge with lovenox when INR <1.7, waiting for clearance from cards to start lovenox tonight post-cath -telemetry monitoring personally reviewed / interpreted, a fib rate ~100-110 -discussed with cards VHD: echo shows severe MR/TR, ?rheumatic mitral valve dz, bi-atrial enlargement , no actual h/o AVR as previously reported -appreciate CV surgery consult -L/R heart cath today prior to valve surgery -valve surgery , d/w dr. heard Chronic diastolic heart failure: No e/o pulmonary edema on CXR, but note elevated BNP. She was volume up on arrival, appears euvolemic today after IV Lasix. Note rising BUN and CO2. Nl LV function on echo, unable to assess diastolic dysfunction. -cont oral lasix -monitor bmp -monitor I&O, daily weights Hypertension: currently normotensive -cont dilt Hyperglycemia: no prior diagnosis of DM, likely hastened by steroids. -check a1c -low dose SSI Full code Dispo - cont inpt, PCU Subjective: Pt feels better. No CP or SOB. Still a bit of wheezing and coughing. No fevers. Objective: Vital Signs Temp Pulse Resp BP Pulse Ox 36.5 C 124 H 17 116/74 91 L 01/04/17 11:19 01/04/17 11:19 01/04/17 11:19 01/04/17 11:19 01/04/17 11:19 Laboratory Results 01/04/17 04:17 01/04/17 04:17 01/03/17 01/04/17 01/05/17 05:59 05:59 05:59 Intake Total 300 650 Output Total 2100 1500 Balance -1800 -850 PT 19.3 SEC (12.0-15.0) H 01/04/17 04:17 INR 1.62 (0.83-1.16) H 01/04/17 04:17 - Physical Exam Constitutional: no apparent distress Eyes: PERRL Ears, Nose, Mouth, Throat: moist mucous membranes Cardiovascular: irregularly irregular Respiratory: no respiratory distress, expiratory wheeze, inspiratory crackles Gastrointestinal: normoactive bowel sounds, soft, non-tender abdomen Skin: warm Musculoskeletal: full muscle strength Neurologic: AAOx3 Psychiatric: interacting appropriately ICD10 Worksheet Patient Problems: Problems Problem Status Onset Acute on chronic congestive heart failure Acute Hypoxia Acute
[2017-01-04] MEDS ORDERED: NS 1,000 ML IV ONE (13:10)
[2017-01-04] MEDS ORDERED: ASPIRIN EC 325 MG TAB PO ONE ×2 (13:10→13:23)
[2017-01-04] MEDS ORDERED: diphenhydrAMINE 25 MG CAP PO ONE ×2 (13:10→13:22)
[2017-01-04] MEDS ORDERED: DIAZEPAM 5 MG TAB PO ONE (13:10)
[2017-01-04] MEDS ORDERED: FAMOTIDINE 20 MG TAB PO ONE (13:10)
[2017-01-04] MEDS ORDERED: FAMOTIDINE 20 MG TAB ONE (13:22)
[2017-01-04] MEDS ORDERED: DIAZEPAM 5 MG TAB ONE (13:23)
[2017-01-04] MEDS ORDERED: MIDAZOLAM 2 MG/2 ML VIAL ONE (13:39)
[2017-01-04] MEDS ORDERED: fentaNYL 100 MCG/2 ML INJ ONE (13:39)
[2017-01-04] MEDS ORDERED: LIDOCAINE 1% 300 MG/30 ML SDV ONE (13:39)
[2017-01-04] MEDS ORDERED: IOPAMIDOL (ISOVUE-370) 150 ML BTL IV ONE (13:40)
[2017-01-04] MEDS ORDERED: ATROPINE SULFATE 1 MG/10 ML SYR IVP PRN (15:00)
[2017-01-04] MEDS ORDERED: ATROPINE SULFATE 1 MG/10 ML SYR ONE (15:03)
--- NOTE | 2017-01-04 15:19 | CPIP ---
[f rep st] INVASIVE CARDIAC PROCEDURE DATE OF PROCEDURE: 01/04/2017 PROCEDURE: 1. Coronary angiography. 2. Left ventriculography. 3. Right heart catheterization. INDICATION: Preoperative evaluation prior to mitral valve and tricuspid valve surgery. ACCESS: The patient was prepped and draped in sterile fashion. 1% lidocaine was used to anesthetize the right inguinal region. A 6-Cymro introducer sheath was placed selectively into the right commo n femoral artery via modified Seldinger technique. CORONARY ANGIOGRAPHY: A 6-Cymro JL4 was advanced to the left main coronary artery and images obtain ed. The left main coronary artery bifurcated into an LAD and circumflex coronary arteries. The left main coronary artery appeared normal. The left anterior descending coronary artery gave rise to 2 p rominent diagonal arteries. The left anterior descending coronary artery had mild luminal irregulari ties in the mid vessel. There was no stenosis greater than 10%. The diagonal arteries were free of any significant disease. Circumflex coronary artery is a large vessel. It was nondominant. Circumf roxie coronary artery appeared normal. The circumflex coronary artery gave rise to 3 OM branches which also appeared normal. A 6-Cymro JR4 was advanced to the right coronary artery and images obtained. The right coronary artery is dominant. The right coronary artery appeared normal. LEFT VENTRICULOGRAPHY: A 6-Cymro pigtail catheter was advanced in the left ventricle and images obt ained. Left ventricle is normal size and had preserved systolic function. Estimated ejection fracti on of 60%. There was evidence of moderate to severe mitral regurgitation with severe left atrial enl argement. RIGHT HEART CATHETERIZATION: Right heart catheter was advanced in the right atrium and pressure obta ined. The right atrial pressure was 14 mmHg. The catheter was then advanced in the right ventricle and pressure obtained. The right ventricular pressure was 39/13 mmHg. Catheter was then advanced in the pulmonary artery and pressure obtained. The pulmonary artery pressure was 45/23 with a mean pul monary artery pressure of 33 mmHg. Catheter was then advanced to the wedge position and pressure obt ained. The pulmonary capillary wedge pressure was 21 mmHg. The transpulmonary gradient was 12. The cardiac output was 3.0 by Raquel, the cardiac index was 2.0 by Raquel. COMPLICATIONS: None. CONCLUSIONS: 1. Mild coronary artery disease without flow limitation. 2. Mild pulmonary hypertension with a mean pulmonary artery pressure of 33 mmHg. The transpulmonary gradient is 12, indicating predominant pulmonary hypertension from left heart failure. 3. Normal left ventricular systolic function. 4. Surgical evaluation. /[id number]/MODL
--- NOTE | 2017-01-04 15:31 | SOAPPROG ---
SOAP Progress Note Assessment/Plan: Assessment: Plan: 01/04/17 15:30 cath noted needs MVR/TVA LA enormous, MAZE not indicated family notified by phone will schedule , INR still prolonged Objective: Vital Signs Temp Pulse Resp BP Pulse Ox 36.5 C 124 H 17 116/74 91 L 01/04/17 11:19 01/04/17 11:19 01/04/17 11:19 01/04/17 11:19 01/04/17 11:19 Laboratory Results 01/04/17 04:17 01/04/17 04:17 01/03/17 01/04/17 01/05/17 05:59 05:59 05:59 Intake Total 300 650 Output Total 2100 1500 Balance -1800 -850 PT 19.3 SEC (12.0-15.0) H 01/04/17 04:17 INR 1.62 (0.83-1.16) H 01/04/17 04:17 ICD10 Worksheet Patient Problems: Problems Problem Status Onset Acute on chronic congestive heart failure Acute Hypoxia Acute
[2017-01-04] MEDS: MONTELUKAST SODIUM 10 MG TAB PO SCH (17:59)
[2017-01-04] MEDS ORDERED: ENOXAPARIN 60 MG/0.6 ML SYR SC SCH (21:00)
[2017-01-04] MEDS: BENZONATATE 100 MG CAP PO PRN (21:53)
[2017-01-05] MEDS: DILTIAZEM 30 MG TAB PO SCH ×2 (00:55→06:16)
[2017-01-05] MEDS: IPRATROPIUM/ALBUTEROL 3 ML DEYVIAL IH SCH ×5 (02:15→20:59)
[2017-01-05 04:30] LABS: ANION GAP 11 mEq/L (8-16); CALCIUM 8.9 mg/dL (8.5-10.4); CARBON DIOXIDE 34 mEq/l (22-31); CHLORIDE 96 mEq/L (97-110); CREATININE 0.8 mg/dL (0.6-1.0); GLOMERULAR FILTRATION RATE > 60; GLUCOSE 119 mg/dL (70-100); INR 1.39 (0.83-1.16); POTASSIUM 3.6 mEq/L (3.5-5.2); SODIUM 141 mEq/L (134-144)
[2017-01-05] MEDS: BENZONATATE 100 MG CAP PO PRN (06:20)
[2017-01-05] MEDS: BECLOMETHASONE QVAR 80 MDI IH SCH ×2 (08:30→20:59)
[2017-01-05] MEDS ORDERED: ENOXAPARIN 60 MG/0.6 ML SYR SC SCH (09:00)
[2017-01-05] MEDS ORDERED: POLYETHYLENE GLYCOL 3350 17 GM PKT PO PRN (09:18)
[2017-01-05] MEDS ORDERED: BISACODYL 10 MG SUPP PR PRN (09:18)
[2017-01-05] MEDS ORDERED: MAGNESIUM HYDROXIDE 30 ML UDCUP PO PRN (09:18)
[2017-01-05] MEDS ORDERED: LACTULOSE 20 GM/30 ML UDCUP PO PRN (09:18)
[2017-01-05] MEDS: predniSONE 20 MG TAB PO SCH (09:33)
[2017-01-05] MEDS: FUROSEMIDE 40 MG TAB PO SCH (09:33)
[2017-01-05] MEDS: ASPIRIN EC 81 MG TAB PO SCH (09:33)
[2017-01-05] MEDS ORDERED: MUPIROCIN 2% 22 GM OINT NS ONE (09:50)
[2017-01-05] MEDS: INSULIN LISPRO 100 UNIT/ML SC SCH ×3 (10:44→17:58)
--- NOTE | 2017-01-05 12:18 | HOSPPROG ---
Hospitalist Progress Note Assessment/Plan: Acute hypoxemic respiratory failure secondary to acute exacerbation of asthma +/ - HF: +rhino/enterovirus. Respiratory status improved this am. 3 LPM. Unclear if she really has asthma (diagnosed as adult) vs symptomatic from valve disease. See below. -completed 5 day steroid burst, will dc -cont duonebs, prn albuterol nebs, QVAR, singulair -diurese, HF / valve dz management as below -wean O2 as able Rapid A fib: suspect valvular A fib. Rate better today. Coumadin held for heart cath and likely need for NICHOLE and valve replacement -changed home metoprolol to diltiazem given asthma hx -change to long acting Dilacor 240 qd today -consider addition of digoxin if additional rate control needed -cont to hold coumadin, bridged with Lovenox this am, hold tonight as plans for surgery in am -resume coumadin post-op when cleared by surgery. With Chads-vasc of 6, she is a candidate for post-op bridging -telemetry monitoring personally reviewed / interpreted, a fib rate ~90-100 VHD: echo shows severe MR/TR, ?rheumatic mitral valve dz, bi-atrial enlargement , no actual h/o AVR as previously reported -NPO at midnight for valve surgery AM, d/w dr. heard CAD: mild CAD on cath, no intervention performed -medical management with ASA -BB deferred given asthma -LDL 54 Chronic diastolic heart failure: No e/o pulmonary edema on CXR, but note elevated BNP. She was volume up on arrival, appears euvolemic today after IV Lasix. Note rising BUN and CO2 / contraction alkalosis. Nl LV function on echo , unable to assess diastolic dysfunction. -cont oral lasix -monitor bmp, I&O, daily weights Hypertension: currently normotensive -cont dilt New Dx diabetes type 2: A1c 7.0, no prior diagnosis of DM, hyperglycemia likely hastened by steroids (now d/c'd). -cont SSI, bg's well controlled -consider addition of metformin at d/c, defer for now given recent angiogram -consider statin, LDL 54, but likely indicated in setting of CAD and DM DVT PPLX: Received therapeutic Lovenox this am, hold in am for surgery, resume post-op anti-coagulation when ok with CV surg Full code Dispo - cont inpt, PCU, surgery in AM Subjective: Pt is tired. Says breathing is better. Denies CP or SOB. No fevers. Less congested. Eating ok. No complaints. Objective: Vital Signs Temp Pulse Resp BP Pulse Ox 36.4 C 95 14 110/70 96 01/05/17 12:00 01/05/17 12:00 01/05/17 12:00 01/05/17 12:00 01/05/17 12:00 Laboratory Results 01/04/17 04:17 01/05/17 04:15 01/04/17 01/05/17 01/06/17 05:59 05:59 05:59 Intake Total 650 600 Output Total 1500 2200 Balance -850 -1600 PT 17.0 SEC (12.0-15.0) H 01/05/17 04:15 INR 1.39 (0.83-1.16) H 01/05/17 04:15 - Physical Exam Constitutional: no apparent distress Eyes: PERRL Ears, Nose, Mouth, Throat: moist mucous membranes Cardiovascular: irregularly irregular Respiratory: no respiratory distress, reduced air movement, rhonchi Gastrointestinal: normoactive bowel sounds, soft, non-tender abdomen Skin: warm Musculoskeletal: full muscle strength Neurologic: AAOx3 Psychiatric: interacting appropriately ICD10 Worksheet Patient Problems: Problems Problem Status Onset Acute on chronic congestive heart failure Acute Hypoxia Acute
[2017-01-05] MEDS: DILTIAZEM XR 240 MG CAP PO SCH (12:42)
--- NOTE | 2017-01-05 15:52 | ASMTCMCOM ---
CM Note CM Note Notes: Patient scheduled for MVR with Dr Dow tomorrow 01/06 to treat her valvular A-fib. PT/OT evals will resume post-operatively. Patient is uninsured and we have submitted an application for emergency Medicaid. If she qualifies, this will cover her hospital stay but not post-discharge care. Fortunately, she has a large supportive family. If she could benefit from cardiac rehab, they offer a co-pay for uninsured patients. CM will follow for discharge planning. Current D/C plan: TBD pending progress post-operatively Date Signed: 01/05/2017 03:51 PM Electronically Signed By:Sallie Rojas RN
--- NOTE | 2017-01-05 17:18 | PDCARPN ---
Cardiology Progress Note Chief Complaint: SOB Assessment/Plan: Assessment: Plan: Objective: Vital Signs (8 Hrs) Temp Pulse Resp BP Pulse Ox 01/05/17 16:12 84 18 94 01/05/17 15:58 36.4 C 91 16 111/81 H 97 01/05/17 12:00 36.4 C 95 14 110/70 96 Intake/Output (24 Hrs) 01/04/17 01/05/17 01/06/17 05:59 05:59 05:59 Intake Total 650 600 600 Output Total 1500 2200 400 Balance -850 -1600 200 Intake: Oral (ml) 650 500 600 IV Intake (ml) 100 Output: Urine (ml) 1500 2200 400 Bedpan 500 Toilet 1500 1700 400 Other: Weight 53.9 kg Intake Quantity Yes Sufficient Number of Voids Bedpan 1 Toilet 1 5 Result Diagrams: 01/04/17 04:17 01/05/17 04:15 ICD10 Worksheet Patient Problems: Problems Problem Status Onset Acute on chronic congestive heart failure Acute Hypoxia Acute
[2017-01-05] MEDS: MONTELUKAST SODIUM 10 MG TAB PO SCH (17:55)
[2017-01-05] MEDS ORDERED: CHLORHEXIDINE GLUC HIBICLENS 118 ML BTL TP SCH (21:00)
[2017-01-05] MEDS: SENNOSIDES/DOCUSATE SODIUM TAB PO SCH (22:51)
[2017-01-05] MEDS: MUPIROCIN 2% 22 GM OINT NS SCH (22:52)
[2017-01-06] MEDS: IPRATROPIUM/ALBUTEROL 3 ML DEYVIAL IH SCH ×4 (05:44→21:05)
[2017-01-06] MEDS ORDERED: ceFAZolin 2 GM/SWFI 2 GM/20 ML SYR IVP ONE (06:00)
[2017-01-06] MEDS ORDERED: CITRATE DEXTROSE SOLN 500 ML BAG MISC ONE (06:00)
[2017-01-06] MEDS ORDERED: niCARdipine/NACL 200 ML IV SCH (06:00)
[2017-01-06] MEDS ORDERED: AMINOCAPROIC ACID 5 GM/20 ML VIAL IV ONE (06:00)
[2017-01-06] MEDS ORDERED: INSULIN REGULAR HUMAN 100 UNIT in NS 100 ML IV ONE (06:00)
[2017-01-06] MEDS ORDERED: PHENYLEPHRINE HCL 50 MG in NS 250 ML IV ONE (06:00)
[2017-01-06] MEDS ORDERED: NOREPINEPHRINE BITARTRATE 16 MG in NS 250 ML IV ONE (06:00)
[2017-01-06] MEDS ORDERED: SODIUM BICARBONATE 20 MEQ, LIDOCAINE 1% 10 ML in NORMOSOL-R 1,000 ML MISC ONE (06:00)
[2017-01-06] MEDS ORDERED: MANNITOL 25% 12.5 GM/50 ML VIAL IVP ONE (06:00)
[2017-01-06] MEDS ORDERED: CALCIUM CHLORIDE 1 GM/10 ML INJ ONE (06:26)
[2017-01-06] MEDS ORDERED: POTASSIUM Cl (KCl) 20 MEQ/50 ML BAG IV ONE (06:26)
[2017-01-06] MEDS ORDERED: PROTAMINE SULFATE 50 MG/5 ML VIAL IVP ONE (06:26)
[2017-01-06] MEDS ORDERED: MILRINONE/DEXTROSE/100 ML BAG IV ONE (06:26)
[2017-01-06] MEDS ORDERED: ALBUMIN 5% 250 ML BOTTLE IV ONE (06:26)
[2017-01-06] MEDS ORDERED: AMIODARONE HCL 150 MG/3 ML VIAL ONE (06:27)
[2017-01-06] MEDS ORDERED: NA BICARBONATE 50 MEQ/50 ML VIAL ONE (06:27)
[2017-01-06] MEDS ORDERED: niCARdipine/NACL/200 ML BAG IV ONE (06:27)
[2017-01-06] MEDS ORDERED: AMINOCAPROIC ACID 5 GM/20 ML VIAL ONE (06:27)
[2017-01-06] MEDS ORDERED: LIDOCAINE 2% 100 MG/5 ML SYR ONE (06:27)
[2017-01-06] MEDS ORDERED: DOPamine/DEXTROSE/250 ML BAG IV ONE (06:27)
[2017-01-06] MEDS ORDERED: CITRATE DEXTROSE SOLN 500 ML BAG ONE (06:27)
[2017-01-06] MEDS ORDERED: ceFAZolin 1 GM VIAL ONE (06:28)
[2017-01-06] MEDS ORDERED: HEPARIN 10,000 UNIT/10 ML MDV ONE (06:28)
[2017-01-06] MEDS ORDERED: methylPREDNISolone SOD SUCC 1 GM/8 ML VIAL ONE (06:28)
[2017-01-06] MEDS ORDERED: MAGNESIUM SULFATE 1 GM/2 ML VIAL ONE (06:28)
[2017-01-06] MEDS ORDERED: ADENOSINE 6 MG/2 ML VIAL ONE (06:28)
[2017-01-06] MEDS ORDERED: MINERAL OIL 10 ML VIAL ONE ×2 (06:42→06:46)
--- NOTE | 2017-01-06 06:51 | PDANEPAE ---
ANE Past Medical History - Pulmonary History Hx Oxygen in Use at Home: No Hx Sleep Apnea: No Sleep Apnea Screening Result - Last Documented: Negative - Endocrine History Hx Diabetes: No ANE Review of Systems Review of Systems: ANE Patient History - Allergies Allergies/Adverse Reactions: No Known Allergies Allergy (Unverified 12/31/16 21:02) - Home Medications Home Medications: Albuterol Hfa Anes Only [Proair Hfa Icu (*)] 2 puffs IH QID PRN 12/31/16 [Last Taken Unknown] Beclomethasone Qvar 80 [Qvar 80 (*)] 2 puffs IH BID 12/31/16 [Last Taken Unknown ] Furosemide [Lasix 40 MG (*)] 40 mg PO DAILY 12/31/16 [Last Taken Unknown] Ipratropium/Albuterol [Combivent Respimat Inhal [place](*)] 1 inh IH QID 12/31/16 [Last Taken Unknown] Metoprolol Tartrate [Lopressor 50 mg (*)] 50 mg PO BID 12/31/16 [Last Taken Unknown] Spironolactone [Aldactone 25 MG (*)] 25 mg PO DAILY 12/31/16 [Last Taken Unknown ] Warfarin Sodium [Coumadin 1MG (*)] 2 mg PO DAILY16 12/31/16 [Last Taken 09:00] Aspirin [Aspirin 81mg (*)] 81 mg PO DAILY 01/01/17 [Last Taken Unknown] - NPO status NPO Since - Liquids (Date): 01/06/17 NPO Since - Liquids (Time): 00:00 NPO Since - Solids (Date): 01/06/17 NPO Since - Solids (Time): 00:00 - Smoking Hx Smoking Status: Never smoked (Heavy second hand smoke exposure) - Alcohol Use Alcohol Use: None ANE Labs/Vital Signs - Labs Result Diagrams: 01/04/17 04:17 01/05/17 04:15 - Vital Signs Blood Pressure: 103/70 Heart Rate: 105 Respiratory Rate: 16 O2 Sat (%): 93 Height: 144.78 cm Weight: 54.3 kg
[2017-01-06] MEDS: MUPIROCIN 2% 22 GM OINT NS SCH (06:55)
[2017-01-06] MEDS ORDERED: MIDAZOLAM 2 MG/2 ML VIAL IVP ONE (07:03)
--- NOTE | 2017-01-06 07:05 | PDHPUP ---
History & Physical Update H&P update statement: This history and physical update is based on an assessment of the patient which was completed after admission or registration (within 24 hours), but prior to the surgery/procedure. H&P update: H&P reviewed & patient examined H&P changes: Pt reports less coughing.
--- NOTE | 2017-01-06 07:21 | SOAPPROG ---
SOAP Progress Note Assessment/Plan: Assessment: Plan: 01/04/17 15:30 cath noted needs MVR/TVA LA enormous, MAZE not indicated family notified by phone will schedule , INR still prolonged 01/06/17 07:19 pt w acute onset deep productive cough associated viral condition surgery cancelled should DC home on coumadin and reschedule several weeks family advised Objective: Vital Signs Temp Pulse Resp BP Pulse Ox 37 C 105 H 16 103/70 93 01/06/17 04:00 01/06/17 06:51 01/06/17 06:51 01/06/17 06:51 01/06/17 06:51 Laboratory Results 01/04/17 04:17 01/05/17 04:15 01/05/17 01/06/17 01/07/17 05:59 05:59 05:59 Intake Total 600 850 Output Total 2200 1750 Balance -1600 -900 PT 17.0 SEC (12.0-15.0) H 01/05/17 04:15 INR 1.39 (0.83-1.16) H 01/05/17 04:15 ICD10 Worksheet Patient Problems: Problems Problem Status Onset Acute on chronic congestive heart failure Acute Hypoxia Acute
[2017-01-06] MEDS: DILTIAZEM XR 240 MG CAP PO SCH (09:24)
[2017-01-06] MEDS: ASPIRIN EC 81 MG TAB PO SCH (09:26)
[2017-01-06] MEDS: SENNOSIDES/DOCUSATE SODIUM TAB PO SCH ×2 (09:27→21:51)
[2017-01-06] MEDS: FUROSEMIDE 40 MG TAB PO SCH (09:28)
[2017-01-06] MEDS: BENZONATATE 100 MG CAP PO PRN (09:32)
[2017-01-06] MEDS: INSULIN LISPRO 100 UNIT/ML SC SCH ×3 (09:33→18:05)
[2017-01-06] MEDS: BECLOMETHASONE QVAR 80 MDI IH SCH ×2 (11:47→21:05)
[2017-01-06] MEDS: ENOXAPARIN 60 MG/0.6 ML SYR SC SCH ×2 (12:49→21:52)
--- NOTE | 2017-01-06 13:35 | HOSPPROG ---
Hospitalist Progress Note Assessment/Plan: New patient encounter Medically complex 71 yo female admitted with ARF, etiology likely multifactorial to include viral illness, asthma, HF, valvular disease. She denies supplemental O2 use at home. Still on 3L. Today she was scheduled for valvular disease which had to be stopped due to the patient coughing. Plan: -keep overnight, still symptomatic, cough, SOB, hypoxia -Start Lovenox/coumadin, d/w pharmacy -will need to have valvular surgery once acute issues have resolved. Likely a few weeks -Restart Prednisone. Would Taper in jono of Burst -Cont diuresis -cont scheduled nebs -Check CXR Acute hypoxemic respiratory failure secondary to acute exacerbation of asthma +/ - HF: +rhino/enterovirus. Respiratory status improved this am. 3 LPM. Unclear if she really has asthma (diagnosed as adult) vs symptomatic from valve disease. See below. -s/p 5 days steroid burst. Will taper -cont duonebs, prn albuterol nebs, QVAR, singulair -diurese, HF / valve dz management as below -wean O2 as able Rapid A fib: suspect valvular A fib. Rate better today. -changed home metoprolol to diltiazem given asthma hx -change to long acting Dilacor 240 qd today -consider addition of digoxin if additional rate control needed -AC -Tele VHD: echo shows severe MR/TR, ?rheumatic mitral valve dz, bi-atrial enlargement , no actual h/o AVR as previously reported -valve surgery with dr. heard in the future CAD: mild CAD on cath, no intervention performed -medical management with ASA -BB deferred given asthma -LDL 54 Chronic diastolic heart failure: No e/o pulmonary edema on CXR, but note elevated BNP. She was volume up on arrival, appears euvolemic today after IV Lasix. Note rising BUN and CO2 / contraction alkalosis. Nl LV function on echo , unable to assess diastolic dysfunction. -cont oral lasix -monitor bmp, I&O, daily weights Hypertension: currently normotensive -cont dilt New Dx diabetes type 2: A1c 7.0, no prior diagnosis of DM, hyperglycemia likely hastened by steroids -cont SSI, bg's well controlled -consider addition of metformin at d/c, defer for now given recent angiogram -consider statin, LDL 54, but likely indicated in setting of CAD and DM DVT PPLX: Received therapeutic Lovenox this am, hold in am for surgery, resume post-op anti-coagulation when ok with CV surg Full code Subjective: surgery stopped due to cough. No CP. Feels SOB. +Cough Objective: Vital Signs Temp Pulse Resp BP Pulse Ox 36.4 C 120 H 12 115/75 91 L 01/06/17 12:00 01/06/17 12:00 01/06/17 12:00 01/06/17 12:00 01/06/17 12:00 Laboratory Results 01/04/17 04:17 01/05/17 04:15 01/05/17 01/06/17 01/07/17 05:59 05:59 05:59 Intake Total 600 850 Output Total 2200 1750 Balance -1600 -900 PT 17.0 SEC (12.0-15.0) H 01/05/17 04:15 INR 1.39 (0.83-1.16) H 01/05/17 04:15 - Physical Exam Constitutional: chronically ill appearing Eyes: PERRL, EOMI Ears, Nose, Mouth, Throat: moist mucous membranes, hearing normal Cardiovascular: regular rate and rhythym Respiratory: no respiratory distress, reduced air movement, expiratory wheeze, inspiratory crackles Gastrointestinal: normoactive bowel sounds, soft, non-tender abdomen Skin: warm Musculoskeletal: generalized weakness Neurologic: AAOx3 Psychiatric: interacting appropriately, not anxious, not encephalopathic ICD10 Worksheet Patient Problems: Problems Problem Status Onset Acute on chronic congestive heart failure Acute Hypoxia Acute
[2017-01-06] MEDS: predniSONE 20 MG TAB PO SCH (14:52)
--- NOTE | 2017-01-06 15:09 | ASMTCMCOM ---
CM Note CM Note Notes: Pts open heart surgery is canceled due to respiratory issues. Family is requesting letter from to have daughter from [place] visit the [place]. CARROLL provided the signed document by to family. CM available for changes. Date Signed: 01/06/2017 03:09 PM Electronically Signed By:NONI Koehler
[2017-01-06] MEDS ORDERED: WARFARIN SODIUM 3 MG TAB PO ONE (16:00)
[2017-01-06] MEDS: MONTELUKAST SODIUM 10 MG TAB PO SCH (17:21)
[2017-01-06] MEDS: GUAIFENESIN/DM 10 ML UDCUP PO PRN (21:51)
[2017-01-07] MEDS: IPRATROPIUM/ALBUTEROL 3 ML DEYVIAL IH SCH ×4 (05:18→21:11)
[2017-01-07] MEDS ORDERED: FLU VACC QS 2017-18 (3YR+)/PF 0.5 ML SYR (FLUARIX QUAD) IM ONE (08:57)
[2017-01-07] MEDS: BECLOMETHASONE QVAR 80 MDI IH SCH ×2 (09:16→21:12)
[2017-01-07 09:18] LABS: INR 1.24 (0.83-1.16); PROTIME(PATIENT) 15.6 SEC (12.0-15.0)
[2017-01-07] MEDS: ENOXAPARIN 60 MG/0.6 ML SYR SC SCH ×2 (10:01→22:13)
[2017-01-07] MEDS: predniSONE 20 MG TAB PO SCH (10:03)
[2017-01-07] MEDS: SENNOSIDES/DOCUSATE SODIUM TAB PO SCH ×2 (10:04→22:13)
[2017-01-07] MEDS: ASPIRIN EC 81 MG TAB PO SCH (10:04)
[2017-01-07] MEDS: DILTIAZEM XR 240 MG CAP PO SCH (10:05)
[2017-01-07] MEDS: INSULIN LISPRO 100 UNIT/ML SC SCH ×3 (10:05→17:32)
[2017-01-07] MEDS: FUROSEMIDE 40 MG TAB PO SCH (10:57)
--- NOTE | 2017-01-07 13:51 | HOSPPROG ---
Hospitalist Progress Note Assessment/Plan: Medically complex 71 yo female admitted with ARF, etiology likely multifactorial to include viral illness, asthma, HF, valvular disease. She denies supplemental O2 use at home. Still on 3L. on 01/07 she was scheduled for valvular disease which had to be stopped due to the patient coughing. she was restarted on Steroids on 01/07 and is starting to feel better. She is still hypoxic. CXR reviewed personally, no acute abnormalities Plan: -cont inpatient -cont steroids, with taper -cont Lovenox/coumadin, d/w pharmacy -will need to have valvular surgery once acute issues have resolved. Likely a few weeks -Cont diuresis -cont scheduled nebs Acute hypoxemic respiratory failure secondary to acute exacerbation of asthma +/ - HF: +rhino/enterovirus. 3 LPM. -Prednisone with taper -cont duonebs, prn albuterol nebs, QVAR, singulair -diurese, HF / valve dz management as below -wean O2 as able Rapid A fib: suspect valvular A fib. Rate better today. -changed home metoprolol to diltiazem given asthma hx -change to long acting Dilacor 240 qd today -consider addition of digoxin if additional rate control needed -AC -Tele VHD: echo shows severe MR/TR, ?rheumatic mitral valve dz, bi-atrial enlargement , no actual h/o AVR as previously reported -valve surgery with dr. heard in the future CAD: mild CAD on cath, no intervention performed -medical management with ASA -BB deferred given asthma -LDL 54 Chronic diastolic heart failure: No e/o pulmonary edema on CXR, but note elevated BNP. She was volume up on arrival, appears euvolemic today after IV Lasix. Note rising BUN and CO2 / contraction alkalosis. Nl LV function on echo , unable to assess diastolic dysfunction. -cont oral lasix -monitor bmp, I&O, daily weights Hypertension: currently normotensive -cont dilt New Dx diabetes type 2: A1c 7.0, no prior diagnosis of DM, hyperglycemia likely hastened by steroids -cont SSI, bg's well controlled -consider addition of metformin at d/c, defer for now given recent angiogram -consider statin, LDL 54, but likely indicated in setting of CAD and DM DVT PPLX: on AC Full code Subjective: SOB is improving. Still with cough. Still with difficulty taking deep breathes. Objective: Vital Signs Temp Pulse Resp BP Pulse Ox 36.4 C 110 H 16 93/60 L 93 01/07/17 12:54 01/07/17 12:54 01/07/17 12:54 01/07/17 12:54 01/07/17 12:54 Laboratory Results 01/04/17 04:17 01/05/17 04:15 01/06/17 01/07/17 01/08/17 05:59 05:59 05:59 Intake Total 850 550 Output Total 1750 500 Balance -900 50 PT 15.6 SEC (12.0-15.0) H 01/07/17 08:45 INR 1.24 (0.83-1.16) H 01/07/17 08:45 - Physical Exam Constitutional: chronically ill appearing Eyes: PERRL Ears, Nose, Mouth, Throat: moist mucous membranes, hearing normal Cardiovascular: regular rate and rhythym Respiratory: expiratory wheeze, rhonchi Gastrointestinal: normoactive bowel sounds, soft, non-tender abdomen, no palpable masses Skin: warm Neurologic: AAOx3 Psychiatric: interacting appropriately, not anxious, not encephalopathic, thought process linear ICD10 Worksheet Patient Problems: Problems Problem Status Onset Acute on chronic congestive heart failure Acute Hypoxia Acute
[2017-01-07] MEDS: WARFARIN SODIUM 1 MG TAB PO SCH (16:01)
[2017-01-07] MEDS: MONTELUKAST SODIUM 10 MG TAB PO SCH (17:42)
[2017-01-07] MEDS: GUAIFENESIN/DM 10 ML UDCUP PO PRN (22:13)
[2017-01-08] MEDS: GUAIFENESIN/DM 10 ML UDCUP PO PRN ×4 (02:59→21:47)
[2017-01-08 04:38] LABS: % IMMATURE GRANULYOCYTES 0.5 % (0.0-1.1); ABSOLUTE IMMATURE GRANULOCYTES 0.06 10^3/uL (0.00-0.10); ADD DIFF? NO; ADD MORPH? NO; ADD SCAN? NO; ATYPICAL LYMPHOCYTE FLAG 0 (0-99); FRAGMENT RBC FLAG 0 (0-99); HEMATOCRIT 38.2 % (38.0-47.0); HEMOGLOBIN 12.1 g/dL (12.6-16.3); LEFT SHIFT FLG 0 (0-99); LIPEMIA HEMOLYSIS FLAG 80 (0-99); MEAN CELL HEMOGLOBIN 29.1 pg (27.9-34.1); MEAN CELL HEMOGLOBIN CONCENTR. 31.7 g/dL (32.4-36.7); MEAN CELL VOLUME 91.8 fL (81.5-99.8); MEAN PLATELET VOLUME 10.1 fL (8.7-11.7); PLATELET CLUMPS FLAG 0 (0-99); PLATELET COUNT 158 10^3/uL (150-400); RED BLOOD CELL COUNT 4.16 10^6/uL (4.18-5.33); RED CELL DISTRIBUTION WIDTH 13.7 % (11.5-15.2)
[2017-01-08 04:45] LABS: INR 1.44 (0.83-1.16); PROTIME(PATIENT) 17.5 SEC (12.0-15.0)
[2017-01-08 05:05] LABS: ANION GAP 11 mEq/L (8-16); CALCIUM 8.6 mg/dL (8.5-10.4); CARBON DIOXIDE 29 mEq/l (22-31); CHLORIDE 99 mEq/L (97-110); CREATININE 0.6 mg/dL (0.6-1.0); GLOMERULAR FILTRATION RATE > 60; GLUCOSE 120 mg/dL (70-100); POTASSIUM 3.7 mEq/L (3.5-5.2); SODIUM 139 mEq/L (134-144)
[2017-01-08] MEDS: IPRATROPIUM/ALBUTEROL 3 ML DEYVIAL IH SCH ×4 (05:28→20:12)
[2017-01-08] MEDS: ASPIRIN EC 81 MG TAB PO SCH (08:36)
[2017-01-08] MEDS: DILTIAZEM XR 240 MG CAP PO SCH (08:36)
[2017-01-08] MEDS: ENOXAPARIN 60 MG/0.6 ML SYR SC SCH ×2 (08:36→21:47)
[2017-01-08] MEDS: SENNOSIDES/DOCUSATE SODIUM TAB PO SCH ×2 (08:36→21:46)
[2017-01-08] MEDS: FUROSEMIDE 40 MG TAB PO SCH (08:36)
[2017-01-08] MEDS: INSULIN LISPRO 100 UNIT/ML SC SCH ×3 (08:44→17:21)
[2017-01-08] MEDS: predniSONE 20 MG TAB PO SCH (08:47)
[2017-01-08] MEDS: BECLOMETHASONE QVAR 80 MDI IH SCH ×2 (11:05→20:13)
[2017-01-08 12:31] LABS: GLUCOSE 272 mg/dL (70-100)
--- NOTE | 2017-01-08 15:04 | HOSPPROG ---
Hospitalist Progress Note Assessment/Plan: 71 yo female admitted with ARF, etiology likely multifactorial to include viral illness, asthma, HF, valvular disease. She denies supplemental O2 use at home. Has weaned off O2 on 01/07 she was scheduled for valvular disease which had to be stopped due to the patient coughing. she was restarted on Steroids on 01/07 and is starting to feel better. CXR reviewed personally, no acute abnormalities Plan: -cont inpatient -cont steroids, with taper -cont Lovenox/coumadin, d/w pharmacy -will need to have valvular surgery once acute issues have resolved. Likely a few weeks -Cont diuresis -cont scheduled nebs -plan for discharge tomorrow Acute hypoxemic respiratory failure secondary to acute exacerbation of asthma +/ - HF: +rhino/enterovirus. 3 LPM. -Prednisone with taper -cont duonebs, prn albuterol nebs, QVAR, singulair -diurese, HF / valve dz management as below -wean O2 as able Rapid A fib: suspect valvular A fib. Rate better today. -changed home metoprolol to diltiazem given asthma hx -change to long acting Dilacor 240 qd today -consider addition of digoxin if additional rate control needed -AC -Tele VHD: echo shows severe MR/TR, ?rheumatic mitral valve dz, bi-atrial enlargement , no actual h/o AVR as previously reported -valve surgery with dr. heard in the future CAD: mild CAD on cath, no intervention performed -medical management with ASA -BB deferred given asthma -LDL 54 Chronic diastolic heart failure: No e/o pulmonary edema on CXR, but note elevated BNP. She was volume up on arrival, appears euvolemic today after IV Lasix. Note rising BUN and CO2 / contraction alkalosis. Nl LV function on echo , unable to assess diastolic dysfunction. -cont oral lasix -monitor bmp, I&O, daily weights Hypertension: currently normotensive -cont dilt New Dx diabetes type 2: A1c 7.0, no prior diagnosis of DM, hyperglycemia likely hastened by steroids -cont SSI, bg's well controlled -consider addition of metformin at d/c, defer for now given recent angiogram -consider statin, LDL 54, but likely indicated in setting of CAD and DM DVT PPLX: on AC Full code Subjective: Getting off O2. Feels better. INR is still low. Objective: Vital Signs Temp Pulse Resp BP Pulse Ox 36.9 C 100 20 101/69 90 L 01/08/17 12:00 01/08/17 12:00 01/08/17 12:00 01/08/17 12:00 01/08/17 12:00 Laboratory Results 01/08/17 04:19 01/08/17 12:00 01/07/17 01/08/17 01/09/17 05:59 05:59 05:59 Intake Total 550 1190 Output Total 500 800 Balance 50 390 PT 17.5 SEC (12.0-15.0) H 01/08/17 04:19 INR 1.44 (0.83-1.16) H 01/08/17 04:19 - Physical Exam Constitutional: no apparent distress Eyes: PERRL Ears, Nose, Mouth, Throat: moist mucous membranes, hearing normal Cardiovascular: regular rate and rhythym Respiratory: no respiratory distress, expiratory wheeze Gastrointestinal: normoactive bowel sounds, soft, non-tender abdomen Skin: warm Neurologic: AAOx3 Psychiatric: interacting appropriately, not anxious, not encephalopathic ICD10 Worksheet Patient Problems: Problems Problem Status Onset Acute on chronic congestive heart failure Acute Hypoxia Acute
[2017-01-08] MEDS: MONTELUKAST SODIUM 10 MG TAB PO SCH (16:50)
[2017-01-08] MEDS: WARFARIN SODIUM 1 MG TAB PO SCH (16:50)
[2017-01-09] MEDS: GUAIFENESIN/DM 10 ML UDCUP PO PRN ×2 (02:00→10:04)
[2017-01-09 05:12] LABS: INR 1.5 (0.83-1.16); PROTIME(PATIENT) 18.1 SEC (12.0-15.0)
[2017-01-09] MEDS: IPRATROPIUM/ALBUTEROL 3 ML DEYVIAL IH SCH ×4 (05:45→21:55)
[2017-01-09] MEDS: INSULIN LISPRO 100 UNIT/ML SC SCH ×3 (08:56→17:54)
[2017-01-09] MEDS: ENOXAPARIN 60 MG/0.6 ML SYR SC SCH ×2 (09:01→21:02)
[2017-01-09] MEDS: SENNOSIDES/DOCUSATE SODIUM TAB PO SCH ×2 (09:02→21:00)
[2017-01-09] MEDS: predniSONE 20 MG TAB PO SCH (09:02)
[2017-01-09] MEDS: FUROSEMIDE 40 MG TAB PO SCH (09:03)
[2017-01-09] MEDS: DILTIAZEM XR 240 MG CAP PO SCH (09:03)
[2017-01-09] MEDS: ASPIRIN EC 81 MG TAB PO SCH (09:03)
[2017-01-09] MEDS: BECLOMETHASONE QVAR 80 MDI IH SCH ×2 (09:30→21:55)
--- NOTE | 2017-01-09 09:54 | ASMTCMCOM ---
CM Note CM Note Notes: 01/09/2017 Case Management Note Spoke w/MD. INR is not in range yet. Per MD will likely d/c from hospital tomorrow (Tuesday). Case Management d/c poc: Home with family support when medically stable with follow up as directed. Case Management to follow. Date Signed: 01/09/2017 09:53 AM Electronically Signed By:Flower Almaraz RN
[2017-01-09] MEDS ORDERED: METOPROLOL TARTRATE 5 MG/5 ML INJ IVP ONE (12:30)
--- NOTE | 2017-01-09 13:08 | HOSPPROG ---
Hospitalist Progress Note Assessment/Plan: 71 yo female admitted with ARF, etiology likely multifactorial to include viral illness, asthma, HF, valvular disease. She was treated with diuretics and steroids. As she improved, she was given a short steroid bust and were then stopped. She was scheduled for vascular surgeon on 01/07 but surgery was cancelled due to coughing. She is not on a steroid taper and improving. She has weaned off O2 Her hospitalization has also been complicated by Afib with RVR. She was previously on Metoprolol and this was stopped due to her hx of Asthma and she was started on long acting Cardizem. Her BP has been borderline. She will have Metoprolol restarted today at a lower dose than her home dose. She requires AC and she is receiving both Warfarin and Lovenox. If she is stable tomorrow and if INR is at target, she can likely discharge tomorrow Plan: -cont inpatient -cont steroids, with taper -cont Lovenox/coumadin, d/w pharmacy -restart Metoprolol at a lower dose -Given her BP would not increase CCB further -will need to have valvular surgery once acute issues have resolved. Likely a few weeks -Cont diuresis -cont scheduled nebs -plan for discharge tomorrow Acute hypoxemic respiratory failure secondary to acute exacerbation of asthma +/ - HF: +rhino/enterovirus. 3 LPM. -Prednisone with taper -cont duonebs, prn albuterol nebs, QVAR, singulair -diurese, HF / valve dz management as below -wean O2 as able Rapid A fib: suspect valvular A fib. Rate better today. -changed home metoprolol to diltiazem given asthma hx -she was started on long acting Dilacor 240 qd -Restart low dose BB now -AC -Tele VHD: echo shows severe MR/TR, ?rheumatic mitral valve dz, bi-atrial enlargement , no actual h/o AVR as previously reported -valve surgery with dr. haerd in the future CAD: mild CAD on cath, no intervention performed -medical management with ASA -BB deferred given asthma -LDL 54 Chronic diastolic heart failure: No e/o pulmonary edema on CXR, but note elevated BNP. She was volume up on arrival, appears euvolemic today after IV Lasix. Note rising BUN and CO2 / contraction alkalosis. Nl LV function on echo , unable to assess diastolic dysfunction. -cont oral lasix -monitor bmp, I&O, daily weights Hypertension: currently normotensive -cont dilt New Dx diabetes type 2: A1c 7.0, no prior diagnosis of DM, hyperglycemia likely hastened by steroids -cont SSI, bg's well controlled -consider addition of metformin at d/c, defer for now given recent angiogram -consider statin, LDL 54, but likely indicated in setting of CAD and DM DVT PPLX: on AC Full code Subjective: +Tachycardia, she is not symtomatic. Feels better. No SOB. ON RA. + Cough. Objective: Vital Signs Temp Pulse Resp BP Pulse Ox 36.4 C 115 H 19 94/70 L 92 01/09/17 11:35 01/09/17 12:42 01/09/17 11:35 01/09/17 11:35 01/09/17 11:35 Laboratory Results 01/08/17 04:19 01/08/17 12:00 01/08/17 01/09/17 01/10/17 05:59 05:59 05:59 Intake Total 1190 840 220 Output Total 800 1100 Balance 390 840 -880 PT 18.1 SEC (12.0-15.0) H 01/09/17 04:17 INR 1.50 (0.83-1.16) H 01/09/17 04:17 - Physical Exam Constitutional: no apparent distress Eyes: PERRL, EOMI Ears, Nose, Mouth, Throat: moist mucous membranes, hearing normal Cardiovascular: irregularly irregular Respiratory: reduced air movement, rhonchi Gastrointestinal: normoactive bowel sounds Skin: warm Neurologic: AAOx3 Psychiatric: interacting appropriately, not anxious, not encephalopathic ICD10 Worksheet Patient Problems: Problems Problem Status Onset Acute on chronic congestive heart failure Acute Hypoxia Acute
[2017-01-09] MEDS: METOPROLOL TARTRATE 25 MG TAB PO SCH ×2 (13:20→21:01)
[2017-01-09] MEDS ORDERED: WARFARIN SODIUM 2 MG TAB PO ONE (15:30)
[2017-01-09] MEDS: MONTELUKAST SODIUM 10 MG TAB PO SCH (17:54)
[2017-01-10] MEDS ORDERED: DILTIAZEM CD 300 MG CAP PO SCH
[2017-01-10] MEDS: IPRATROPIUM/ALBUTEROL 3 ML DEYVIAL IH SCH ×2 (05:36→10:11)
[2017-01-10 05:38] LABS: INR 1.47 (0.83-1.16); PROTIME(PATIENT) 17.8 SEC (12.0-15.0)
[2017-01-10] MEDS: DILTIAZEM XR 240 MG CAP PO SCH (08:32)
[2017-01-10] MEDS: INSULIN LISPRO 100 UNIT/ML SC SCH ×2 (08:35→13:05)
[2017-01-10] MEDS: predniSONE 20 MG TAB PO SCH (08:35)
[2017-01-10] MEDS: ASPIRIN EC 81 MG TAB PO SCH (08:37)
[2017-01-10] MEDS: METOPROLOL TARTRATE 25 MG TAB PO SCH (08:40)
[2017-01-10] MEDS: SENNOSIDES/DOCUSATE SODIUM TAB PO SCH (08:49)
[2017-01-10] MEDS: BENZONATATE 100 MG CAP PO PRN (08:59)
[2017-01-10] MEDS ORDERED: ENOXAPARIN 60 MG/0.6 ML SYR SC SCH (09:00)
[2017-01-10] MEDS: FUROSEMIDE 40 MG TAB PO SCH (09:02)
[2017-01-10] MEDS: BECLOMETHASONE QVAR 80 MDI IH SCH (10:11)
[2017-01-10 11:35] VITALS: BP 111/69; PULSE 101; RESP 20; TEMP 95.4; O2SAT 91
--- NOTE | 2017-01-10 14:58 | ASMTCMCOM ---
CM Note CM Note Notes: Patient discharged home with family. I set up an appointment tomorrow for her at the [facility] @ [address] Armendariz. RN and state wildlife officer were informed. Date Signed: 01/10/2017 02:58 PM Electronically Signed By:Sallie Rojas RN
[2017-01-10] MEDS ORDERED: WARFARIN SODIUM 4 MG TAB PO ONE (16:00)
[2017-01-10] MEDS ORDERED: WARFARIN SODIUM 5 MG TAB PO ONE (16:00)
--- NOTE | 2017-01-10 17:05 | PDDCSUM ---
Discharge Summary Discharge Summary: DISCHARGE SUMMARY FOLLOW-UP ITEMS: Follow-up PT and INR later this week, reschedule cardiothoracic surgery DATE OF ADMISSION: 12/31/2016 DATE OF DISCHARGE: 01/10/2017 DISCHARGE DIAGNOSES: 1. Acute hypoxic respiratory failure 2. Acute asthma exacerbation 3. Viral syndrome with enterovirus 4. Persistent atrial fibrillation, valvular 5. Rheumatic heart disease with severe mitral regurgitation, severe tricuspid regurgitation 6. Chronic coronary artery disease 7. Chronic diastolic congestive heart failure 8. Chronic hypertension 9. New diagnosis diabetes mellitus type 2 CONSULTATIONS: Cardiothoracic surgery PROCEDURES / IMAGING: Cardiac catheterization demonstrating mild coronary artery disease with no obstructive lesions 9 echocardiogram demonstrating severe mitral regurgitation, severe tricuspid regurgitation, biatrial enlargement CHIEF COMPLAINT: Acute shortness of breath SUBJECTIVE: Patient is feeling well at time of discharge, she is ambulating safely without supplemental oxygen PHYSICAL EXAM ON DISCHARGE: Systolic blood pressure 120, heart rate 90, afebrile overnight, satting well on room air, net-1.2 L over the last 24 hours, lungs are clear to auscultation bilaterally with a very faint expiratory wheeze, irregularly irregular rhythm, no lower extremity edema LABS ON DISCHARGE: Glucose 100, INR 1.5 HOSPITAL COURSE BY PROBLEM: 1. Acute hypoxic respiratory failure. Evidenced by SpO2 of 87% on room air, objective tachypnea with respiratory rate of 25, oxygen requirements up to 4 L nasal cannula which is equivalent to an FiO2 of 33%, with symptomatic shortness of breath, secondary to acute asthma exacerbation. She received supplemental oxygen and this was weaned during her hospitalization. She was discharged on room air. 2. Acute asthma exacerbation. Evidenced by expiratory wheezes, requiring steroids, nebulizer treatments, provoked by systemic viral infection. Her cardiothoracic surgery was held secondary to this issue, and after she recovers her surgery will be rescheduled. She will continue on 3 subsequent days of prednisone 40 mg daily, and has a home nebulizer. 3. Viral syndrome with enterovirus. Patient is a viral swab was positive for rhinovirus and enterovirus, most likely provoking factors of her asthma exacerbation. She did not require antibiotics, and she received supportive care. Received as needed Tessalon Perles for cough, will be continued at discharge. 4. Persistent atrial fibrillation. She experienced acute rapid ventricular response in the setting of her respiratory failure and asthma exacerbation, with her AFib most likely exacerbated in the setting of valvular heart disease. Is possible that her atrial fibrillation may respond to cardioversion, but this will be held until the patient's valves have been surgically repaired. She had previously been on metoprolol therapy, but this will be discontinued in the setting of her asthma. She has been up titrated on diltiazem to 300 mg daily. She has a chads 2 Vasc score of 6, with systemic anticoagulation indicated. That being said, she has no absolute indication for bridging therapy , and she will be discharged on Coumadin, with outpatient INR later this week. Her Coumadin should be discontinued prior to her cardiothoracic surgery, and this will be at the guidance of the cardiothoracic surgery Office. 5. Rheumatic valvular heart disease. Patient has severe mitral regurgitation and severe tricuspid regurgitation, most likely secondary to rheumatic disease, her cardiothoracic surgery was postponed will be rescheduled in the next several weeks. 6. Chronic diastolic congestive heart failure. No evidence of acute exacerbation with no pulmonary edema on chest x-ray. She will be continued on her home dosage of Lasix. 7. Chronic coronary artery disease. Patient had a cardiac catheterization for surgical staging, and there was no evidence of obstructive coronary lesions. She will be continued on low-dose aspirin, to be held prior to cardiothoracic surgery. 8. New diagnosis diabetes mellitus type 2. Hemoglobin A1c 7.0, no prior diagnosis of diabetes, hypoglycemia was likely exacerbated by steroids. We held on initiating metformin given her upcoming surgery, but this can be considered postoperatively. Patient's LDL is 54 and consequently statin was held, given that she is better than goal. DISCHARGE MEDICATIONS: Please see official discharge medication reconciliation sheet in chart , continue all home medications with the exception discontinuation of metoprolol, initiation of diltiazem 300 mg daily, re-initiation of Coumadin, Tessalon Perles as needed, prednisone 40 mg daily x3 days. DISCHARGE INSTRUCTIONS: Please have INR later this week, follow up at [facility] to get medications filled, schedule outpatient cardiothoracic surgery. TIME SPENT: Greater than 30 minutes were spent on direct patient care, as well as discharge planning and preparation.
[2017-01-11] MEDS ORDERED: DILTIAZEM CD 300 MG CAP PO SCH (09:00)
--- NOTE | 2017-01-12 15:50 | ASDISCHSUM ---
Discharge Information Plan Status:Home with No Needs Medically Cleared to Leave: Discharge Date:01/10/2017 04:35 PM CM D/C Disposition:Home, Routine, Self-Care ADT D/C Disposition:Home, Routine, Self-Care Projected Discharge Date:01/10/2017 04:35 PM Transportation at D/C:Family Discharge Delay Reason: Follow-Up Date:01/10/2017 04:35 PM Discharge Slot: Final Diagnosis: Placement Information Patient Contact Information Contact Name:JUANJOSE Relationship:Gavin Address: Work Phone: City: [facility] [facility] Phone: State/Zip Code: Email: Financial Information Financial Class:Self-Pay Primary Plan Desc:[facility] Primary Plan Number:99 Secondary Plan Desc: Secondary Plan Number: Assessment Information [facility] Progress Note CM Note CM Note Notes: 71 year old Burundian speaking female admitted for SOB, CHF exascerbation, palpitations. She has a hx of asthma, possible Afib, HTN, on chronic coagulation. CM to follow for possible discharge needs. Date Signed: 01/02/2017 11:20 AM Electronically Signed By:Kath Kimball LCSW [facility] [place] Progress Note CM Note CM Note Notes: Pt will go for heart cath tomorrow (INR too high to go today). She may need valve surgery this admission- will know more tomorrow. Spiritual care saw pt today and did adv directives; [facility]'s appointed (2 dtrs and gr dtr). CM w/f. Date Signed: 01/03/2017 05:13 PM Electronically Signed By:Nelly Luciano RN [facility] Progress Note CM Note CM Note Notes: Patient scheduled for MVR with Dr Dow tomorrow 01/06 to treat her valvular A-fib. PT/OT evals will resume post-operatively. Patient is uninsured and we have submitted an application for emergency Medicaid. If she qualifies, this will cover her hospital stay but not post-discharge care. Fortunately, she has a large supportive family. If she could benefit from cardiac rehab, they offer a co-pay for uninsured patients. CM will follow for discharge planning. Current D/C plan: TBD pending progress post-operatively Date Signed: 01/05/2017 03:51 PM Electronically Signed By:Sallie Rojas RN [facility] Progress Note CM Note CM Note Notes: Pts open heart surgery is canceled due to respiratory issues. Family is requesting letter from to have daughter from [place] visit the [place]. [facility] provided the signed document by to family. CM available for changes. Date Signed: 01/06/2017 03:09 PM Electronically Signed By:NONI Koehler [facility] Progress Note CM Note CM Note Notes: 01/09/2017 Case Management Note Spoke w/MD. INR is not in range yet. Per MD will likely d/c from hospital tomorrow (Tuesday). Case Management d/c poc: Home with family support when medically stable with follow up as directed. Case Management to follow. Date Signed: 01/09/2017 09:53 AM Electronically Signed By:Flower Almaraz RN [facility] CM Progress Note CM Note CM Note Notes: Patient discharged home with family. I set up an appointment tomorrow for her at the [facility] @ [id number] Armendar[address]. PIERCE and credit union field examiner were informed. Date Signed: 01/10/2017 02:58 PM Electronically Signed By:Sallie Rojas RN Intervention Information
== END 2017-01-10 16:35 | disposition home or self-care (01) | DRG 202 ==
LOC: F3N 23:52 → F2W 01-01 09:19 → OBSVTOIN 01-01 09:33
PROVIDERS: ADMIT Family Medicine; ATTEND Internal Medicine
PROC: 4A023N6 Measurement of Cardiac Sampling and Pressure, Right Heart, Percutaneous Approach (ICD-10-PCS; principal; 2017-01-03)
PROC: B2111ZZ Fluoroscopy of Multiple Coronary Arteries using Low Osmolar Contrast (ICD-10-PCS; principal; 2017-01-03)
PROC: B2151ZZ Fluoroscopy of Left Heart using Low Osmolar Contrast (ICD-10-PCS; principal; 2017-01-03)
DX: J45.901 Unspecified asthma with (acute) exacerbation (principal); J96.01 Acute respiratory failure with hypoxia; I50.32 Chronic diastolic (congestive) heart failure; I48.1 Persistent atrial fibrillation; I08.1 Rheumatic disorders of both mitral and tricuspid valves; I27.20 Pulmonary hypertension, unspecified; B97.10 Unspecified enterovirus as the cause of diseases classified elsewhere; I25.10 Atherosclerotic heart disease of native coronary artery without angina pectoris; I11.0 Hypertensive heart disease with heart failure; E11.9 Type 2 diabetes mellitus without complications; Z79.01 Long term (current) use of anticoagulants; Z23 Encounter for immunization; Z95.2 Presence of prosthetic heart valve; Z77.22 Contact with and (suspected) exposure to environmental tobacco smoke (acute) (chronic); Z79.51 Long term (current) use of inhaled steroids
CPT/HCPCS: 82947-QW; 96374; 97116-GP; 97162-GP; G0008; J0153; J0282; J0461; J0690; J1265; J1644; J1650; J1815; J1940; J2001; J2150; J2250; J2260; J2370; J2720; J2930; J3010; J7060; P9041; Q9967

== ENCOUNTER 2017-01-31 07:46 | Inpatient (IN) | payer OTHER ==
[~2017-01-31 07:46] MED LIST: ADENOSINE 6 MG/2 ML VIAL ONE; ALBUMIN 5% 250 ML BOTTLE IV ONE; AMINOCAPROIC ACID 5 GM/20 ML VIAL IV ONE; AMIODARONE HCL 150 MG/3 ML VIAL ONE; CALCIUM CHLORIDE 1 GM/10 ML INJ ONE; CITRATE DEXTROSE SOLN 500 ML BAG MISC ONE; CITRATE DEXTROSE SOLN 500 ML BAG ONE; DOPamine/DEXTROSE/250 ML BAG IV ONE; HEPARIN 10,000 UNIT/10 ML MDV ONE; INSULIN REGULAR HUMAN 100 UNIT in NS 100 ML IV ONE; LIDOCAINE 2% 100 MG/5 ML SYR ONE; MAGNESIUM SULFATE 1 GM/2 ML VIAL ONE; MANNITOL 25% 12.5 GM/50 ML VIAL IVP ONE; MILRINONE/DEXTROSE/100 ML BAG IV ONE; MUPIROCIN 2% 22 GM OINT NS ONE; NA BICARBONATE 50 MEQ/50 ML VIAL ONE; NOREPINEPHRINE BITARTRATE 16 MG in NS 250 ML IV ONE; PHENYLEPHRINE HCL 50 MG in NS 250 ML IV ONE; PROTAMINE SULFATE 50 MG/5 ML VIAL IVP ONE; SODIUM BICARBONATE 20 MEQ, LIDOCAINE 1% 10 ML in NORMOSOL-R 1,000 ML MISC ONE; ceFAZolin 1 GM VIAL ONE; ceFAZolin 2 GM/SWFI 2 GM/20 ML SYR IVP ONE; methylPREDNISolone SOD SUCC 1 GM/8 ML VIAL ONE; niCARdipine/NACL 200 ML IV SCH; niCARdipine/NACL/200 ML BAG IV ONE
[2017-01-31] MEDS ORDERED: LIDOCAINE 1% 2 ML INJ ID PRN (08:23)
[2017-01-31] MEDS ORDERED: LR 1,000 ML IV ONE (08:23)
[2017-01-31] MEDS ORDERED: MUPIROCIN 2% 22 GM OINT NS ONE (09:15)
[2017-01-31] MEDS ORDERED: MINERAL OIL 10 ML VIAL ONE (09:19)
[2017-01-31 09:29] LABS: INR 1.02 (0.83-1.16); PROTIME(PATIENT) 13.6 SEC (12.0-15.0)
[2017-01-31] MEDS ORDERED: ceFAZolin 2 GM/SWFI 2 GM/20 ML SYR IVP ONE (09:45)
--- NOTE | 2017-01-31 09:59 | PDHPUP ---
History & Physical Update H&P update statement: This history and physical update is based on an assessment of the patient which was completed after admission or registration (within 24 hours), but prior to the surgery/procedure. H&P changes: URI appears to have resolved. INR normal. Coros ok. Giant atria , Maze not indicated. For MVR/TVA, possible reduction atrioplasty.
[2017-01-31] MEDS ORDERED: MIDAZOLAM 2 MG/2 ML VIAL IVP ONE (10:31)
--- NOTE | 2017-01-31 10:32 | PDANEPAE ---
ANE History of Present Illness HERE FOR MVR/TVR ANE Past Medical History - Cardiovascular History Hx Hypertension: Yes Hx Arrhythmias: Yes Hx Chest Pain: No Hx Coronary Artery / Peripheral Vascular Disease: Yes Hx CHF / Valvular Disease: Yes Hx Palpitations: Yes - Pulmonary History Hx COPD: No Hx Asthma/Reactive Airway Disease: Yes Hx Recent Upper Respiratory Infection: No Hx Oxygen in Use at Home: No Hx Sleep Apnea: No - Endocrine History Hx Diabetes: No Hypothyroid: No Hyperthyroid: No - Renal History Hx Renal Disorders: No - Liver History Hx Hepatic Disorders: No ANE Review of Systems Review of systems is: negative Review of Systems: - Exercise capacity Exercise capacity: <4 METS ANE Patient History - Allergies Allergies/Adverse Reactions: No Known Allergies Allergy (Unverified 12/31/16 21:02) - Home Medications Home medications: home medication list seen and reviewed Home Medications: Albuterol Hfa Anes Only [Proair Hfa Icu (*)] 2 puffs IH QID PRN 12/31/16 [Last Taken 01/30/17 09:00] Beclomethasone Qvar 80 [Qvar 80 (*)] 2 puffs IH BID 12/31/16 [Last Taken Unknown ] Furosemide [Lasix 40 MG (*)] 40 mg PO DAILY 12/31/16 [Last Taken 01/30/17 17:00] Spironolactone [Aldactone 25 MG (*)] 25 mg PO DAILY 12/31/16 [Last Taken 17:00] Warfarin Sodium [Coumadin 1MG (*)] 2 mg PO DAILY16 12/31/16 [Last Taken 01/24/17 ] Aspirin [Aspirin 81mg (*)] 162 mg PO DAILY 01/01/17 [Last Taken 01/30/17 17:00] Albuterol [Proventil Neb] 3 ml IH QID PRN 01/28/17 [Last Taken 01/30/17 17:00] Enoxaparin [Lovenox 40 MG (*)] 40 mg SC 1000,2200 01/28/17 [Last Taken 01/30/17 12:00] Multivitamins [Multivitamin (*)] 1 each PO DAILY 01/28/17 [Last Taken 01/30/17 09:00] - NPO status NPO Since - Liquids (Date): 01/30/17 NPO Since - Liquids (Time): 19:00 NPO Since - Solids (Date): 01/30/17 NPO Since - Solids (Time): 13:00 - Smoking Hx Smoking Status: Never smoked (Heavy second hand smoke exposure) ANE Labs/Vital Signs - Vital Signs Blood Pressure: 103/72 Heart Rate: 82 Respiratory Rate: 16 O2 Sat (%): 94 Height: 149.86 cm Weight: 56.699 kg ANE Physical Exam - Airway Neck exam: FROM Mallampati Score: Class 1 - Pulmonary Pulmonary: no respiratory distress - Cardiovascular Cardiovascular: irregularly irregular - ASA Status ASA Status: IV ANE Anesthesia Plan Anesthesia Plan: general endotracheal anesthesia Lines/Monitors: central line, LAUEREN
[2017-01-31] MEDS ORDERED: PROPOFOL/EMULSION 500 MG/50 ML BOTTLE IV ONE (10:46)
[2017-01-31] MEDS ORDERED: fentaNYL 250 MCG/5 ML INJ ONE ×2 (10:50)
[2017-01-31] MEDS ORDERED: SODIUM CL NASAL 45 ML BTL EACHNARE PRN (14:18)
[2017-01-31] MEDS ORDERED: MAGNESIUM HYDROXIDE 30 ML UDCUP PO PRN (14:18)
[2017-01-31] MEDS ORDERED: MEPERIDINE 25 MG/ML SYR IVP PRN (14:18)
[2017-01-31] MEDS ORDERED: CEPACOL LOZENGE PO PRN (14:18)
[2017-01-31] MEDS ORDERED: PANTOPRAZOLE SODIUM 40 MG VIAL IVP ONE (14:18)
[2017-01-31] MEDS ORDERED: MAGNESIUM SULF 2 GM/WATER 50 ML IV ONE (14:18)
[2017-01-31] MEDS ORDERED: ACETAMINOPHEN 325 MG TAB PO PRN (14:18)
[2017-01-31] MEDS ORDERED: METOCLOPRAMIDE 10 MG/2 ML VIAL IVP PRN (14:18)
[2017-01-31] MEDS ORDERED: LACTULOSE 20 GM/30 ML UDCUP PO PRN (14:18)
[2017-01-31] MEDS ORDERED: D50W 25 GM/50 ML SYR IVP PRN (14:18)
[2017-01-31] MEDS ORDERED: ONDANSETRON 4 MG/2 ML VIAL IVP PRN (14:18)
[2017-01-31] MEDS ORDERED: ACETAMINOPHEN 650 MG SUPP PR PRN (14:18)
[2017-01-31] MEDS ORDERED: BISACODYL 10 MG SUPP PR PRN (14:18)
[2017-01-31] MEDS ORDERED: ONDANSETRON DISINTEGRATING 4 MG TAB PO PRN (14:18)
[2017-01-31] MEDS ORDERED: INSULIN REGULAR HUMAN 100 UNIT in NS 100 ML IV SCH (14:30)
[2017-01-31] MEDS ORDERED: NS 1,000 ML IV SCH (14:30)
[2017-01-31] MEDS ORDERED: ALBUMIN 5% 250 ML BOTTLE IV ONE (14:33)
[2017-01-31] MEDS: ALBUMIN 5% 250 ML IV PRN ×5 (14:45→23:47)
[2017-01-31] MEDS ORDERED: IPRATROPIUM/ALBUTEROL 3 ML DEYVIAL IH PRN (15:00)
--- NOTE | 2017-01-31 15:08 | GOP ---
[f rep st] OPERATIVE REPORT DATE OF OPERATION: 01/31/2017 SURGEON: Pradeep Dow DO INSURANCE EXAMINING CLERK: Kellee Garcia PA-C. ANESTHESIA: Yovany Casillas MD PREOPERATIVE DIAGNOSIS: 1. Rheumatic mitral stenosis and mitral insufficiency. 2. Tricuspid insufficiency. 3. Permanent atrial fibrillation. POSTOPERATIVE DIAGNOSIS: 1. Rheumatic mitral stenosis and mitral insufficiency. 2. Tricuspid insufficiency. 3. Permanent atrial fibrillation. PROCEDURE PERFORMED: 1. Mitral valve replacement with a #25 Magna bioprosthesis. 2. Tricuspid valve annuloplasty with a #30 Lane annuloplasty ring. 3. AtriClip the left atrial appendage. FINDINGS: DESCRIPTION OF PROCEDURE: The patient was consented for surgery, brought to the operating room, intu bated. Monitoring lines were placed. She was prepped and draped in sterile classical manner. Coleman otomy was performed. The patient was heparinized, cannulated in the ascending aorta and both caval. The left ventricular dimensions appeared small visually, as well as on echo. She had a markedly enl arged left and right atrium and was then permanent AFib. She was heparinized, cannulated. Bypass wa s begun. A cardioplegic arrest was obtained with antegrade cardioplegia, retrograde cardioplegia, to pical hypothermia, and systemic cooling. Initially, the left atrial appendage was occluded with a 40 mm AtriClip placed at the base of the appendage with complete occlusion confirmed by echo. We then proceeded with exposing the mitral valve through the interatrial septum. After securing caval tapes. The valve was classically rheumatic with a fishmouth appearance, thickened and fused leaflets that were fused open. Subvalvular apparatus was foreshortened and fused as well. The entire anterior bety flet and valve support structure to the anterior leaflet was removed in order to accommodate a biopro sthesis. The posterior leaflet was left intact. Interrupted 2-0 Tycron pledgeted mattress sutures w ere placed through the anulus and the mitral valve. It was secured in place with Cor-Knots. It was tested with distention. There was no perivalvular leak. The interatrial septum and dome of the left atrium were then closed. We then removed the cross-clamp with suction on the ascending aortic vent with intermittent aspiration through the LV apex and then proceeded with placing an annuloplasty ring with a #2 Tycron sutures passed through the anulus and subsequently through a 30 mm ring. Distentio n of the right ventricle revealed no regurgitation. The right atrium was closed with Prolene. Spont aneous cardiac activity was noted to resume. The patient was rewarmed, weaned from bypass in [place] when no further air was identified. The heparin was reversed with protamine. The cannula was removed and oversewn. Two ventricular pacing wires and 2 mediastinal drains were placed. The thymi c fat and pericardium were closed. Chest was closed in standard fashion. Echo confirmed good valvul ar function without perivalvular leak. The patient was returned to the ICU in stable condition. /[id number]/MODL
[2017-01-31 15:13] LABS: HEMATOCRIT 29.8 % (38.0-47.0); HEMOGLOBIN 9.9 g/dL (12.6-16.3)
[2017-01-31] MEDS ORDERED: ALBUMIN 5% 500 ML BOTTLE IV ONE (15:22)
[2017-01-31] MEDS: fentaNYL 100 MCG/2 ML INJ IVP PRN ×2 (15:25→19:36)
--- NOTE | 2017-01-31 15:51 | POSTANESTH ---
Post Anesthetic Evaluation Cardiovascular Status: Normal, Stable Respiratory Status: Requires Airway Assist (intubated) Pain Control: Adequate, Prn Tx Ordered Nausea/Vomiting Control: Adequate, Prn Tx Ordered Complications Possibly Related to Anesthesia: None Noted
[2017-01-31] MEDS ORDERED: ALBUMIN 5% 500 ML IV ONE (16:00)
--- NOTE | 2017-01-31 16:26 | ASMTCMCOM ---
CM Note CM Note Notes: 71 year old female admitted with CHF, Mitral valve and tricuspid valve insuffciency, asthma. Patient went to surgery and had an MVR, TVR and a Maze. Therapies to [facility]onso to follow for possible discharge needs. Date Signed: 01/31/2017 04:25 PM Electronically Signed By:Kath Kimball LCSW
[2017-01-31] MEDS ORDERED: POTASSIUM Cl (KCl) 20 MEQ in NS 50 ML IV ONE (17:15)
[2017-01-31] MEDS ORDERED: ALBUMIN 5% 250 ML IV ONE (18:00)
[2017-01-31 19:11] LABS: CALCULATED OXYGEN SATURATION 98 % (92-95); O2 CONCENTRATIION 50 % (0-100)
[2017-01-31] MEDS: MUPIROCIN 2% 22 GM OINT NS SCH (19:38)
[2017-01-31] MEDS: KETOROLAC 15 MG/1 ML SDV IVP PRN (19:38)
[2017-01-31] MEDS: ceFAZolin 2 GM/DEXTROSE 100 ML IV SCH (22:06)
[2017-01-31 23:25] LABS: CALCULATED OXYGEN SATURATION 97 % (92-95); O2 CONCENTRATIION 40 % (0-100)
[2017-02-01] MEDS: POTASSIUM Cl (KCl) 50 ML IV PRN ×2 (00:01→00:18)
[2017-02-01] MEDS ORDERED: DOPamine/DEXTROSE/250 ML BAG IV ONE (00:12)
[2017-02-01] MEDS: KETOROLAC 15 MG/1 ML SDV IVP PRN (01:20)
[2017-02-01 04:04] LABS: % IMMATURE GRANULYOCYTES 0.4 % (0.0-1.1); ABSOLUTE IMMATURE GRANULOCYTES 0.02 10^3/uL (0.00-0.10); ADD DIFF? NO; ADD MORPH? NO; ADD SCAN? NO; ATYPICAL LYMPHOCYTE FLAG 0 (0-99); FRAGMENT RBC FLAG 0 (0-99); HEMATOCRIT 26.1 % (38.0-47.0); HEMOGLOBIN 8.5 g/dL (12.6-16.3); LEFT SHIFT FLG 0 (0-99); LIPEMIA HEMOLYSIS FLAG 80 (0-99); MEAN CELL HEMOGLOBIN 30.6 pg (27.9-34.1); MEAN CELL HEMOGLOBIN CONCENTR. 32.6 g/dL (32.4-36.7); MEAN CELL VOLUME 93.9 fL (81.5-99.8); MEAN PLATELET VOLUME 10.3 fL (8.7-11.7); PLATELET CLUMPS FLAG 0 (0-99); PLATELET COUNT 51 10^3/uL (150-400); RED BLOOD CELL COUNT 2.78 10^6/uL (4.18-5.33); RED CELL DISTRIBUTION WIDTH 16.8 % (11.5-15.2)
[2017-02-01 04:10] LABS: INR 1.39 (0.83-1.16); PROTIME(PATIENT) 17.2 SEC (12.0-15.0)
[2017-02-01 04:12] LABS: ANION GAP 16 mEq/L (8-16); CALCIUM 8.5 mg/dL (8.5-10.4); CARBON DIOXIDE 23 mEq/l (22-31); CHLORIDE 112 mEq/L (97-110); CREATININE 0.7 mg/dL (0.6-1.0); GLOMERULAR FILTRATION RATE > 60; GLUCOSE 121 mg/dL (70-100); POTASSIUM 4.3 mEq/L (3.5-5.2); SODIUM 151 mEq/L (134-144)
[2017-02-01] MEDS: ceFAZolin 2 GM/DEXTROSE 100 ML IV SCH ×3 (05:28→22:46)
[2017-02-01] MEDS ORDERED: HEPARIN 5,000 UNIT/0.5 ML SYR SC SCH (06:00)
--- NOTE | 2017-02-01 06:03 | SOAPPROG ---
SOAP Progress Note Assessment/Plan: POD #1: MV replacement with #25 Magna bioprosthesis, TV annuloplasty with #30 Lane ring Rheumatic MS/MR s/p bioprosthetic MVR - Wean dopamine to off - CTs to bulb suction, FC out, AL out when BP stable - Coumadin as per permanent AF - SCDs for DVT prophylaxis, heparin SQ when platelets > 100 TR s/p TV annuloplasty - Mgmt as pr MVR Acute blood loss anemia - s/p 2U PRBCs for hypotension, monitor H/H Chronic class III diastolic CHF - HF meds when appropriate Permanent atrial fibrillation - Lifelong Coumadin with INR goal 2-3 to be resumed tomorrow - Consider restarting Cardizem once higher BP Subjective: Pain well-controlled. Denies SOB. Objective: Vital Signs Temp Pulse Resp BP Pulse Ox 37.7 C 82 12 98/46 L 100 02/01/17 05:00 02/01/17 05:00 02/01/17 05:00 02/01/17 05:00 02/01/17 05:00 Laboratory Results 02/01/17 03:50 02/01/17 03:50 01/31/17 02/01/17 02/02/17 05:59 05:59 05:59 Intake Total 2377.9 Output Total 2613 Balance -235.1 PT 17.2 SEC (12.0-15.0) H 02/01/17 03:50 INR 1.39 (0.83-1.16) H 02/01/17 03:50 Physical Exam - Physical Exam General Appearance: WD/WN, alert, no apparent distress EENT: No scleral icterus (R), No scleral icterus (L) Neck: normal inspection Respiratory: No respiratory distress Cardiac/Chest: irregularly irregular Abdomen: non-tender, soft, No distended Skin: normal color, warm/dry Extremities: No pedal edema Neuro/Psych: no motor/sensory deficits, alert, normal mood/affect, oriented x 3 ICD10 Worksheet Patient Problems: Problems Problem Status Onset S/P mitral valve replacement with bioprosthetic valve Acute ~01/31/17 S/P tricuspid valve repair Acute ~01/31/17 Asthma Chronic Chronic anticoagulation Chronic Chronic diastolic congestive heart failure Chronic Diet-controlled diabetes mellitus Chronic Longstanding persistent atrial fibrillation Chronic 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
[2017-02-01] MEDS: PANTOPRAZOLE SODIUM 40 MG TAB PO SCH (08:44)
[2017-02-01] MEDS: MUPIROCIN 2% 22 GM OINT NS SCH ×2 (08:44→21:41)
[2017-02-01] MEDS: HYDROCODONE/APAP 5/325 TAB PO PRN ×4 (10:24→23:15)
[2017-02-01] MEDS: INSULIN LISPRO 100 UNIT/ML SC SCH ×2 (11:42→17:57)
[2017-02-01] MEDS ORDERED: ACETAMINOPHEN 325 MG TAB PO PRN (13:55)
[2017-02-01] MEDS ORDERED: WARFARIN SODIUM 2.5 MG TAB PO ONE (16:00)
[2017-02-01] MEDS ORDERED: WARFARIN SODIUM 1 MG TAB PO ONE (16:00)
[2017-02-01] MEDS: BECLOMETHASONE QVAR 80 MDI IH SCH (20:31)
[2017-02-01] MEDS: traMADol 50 MG TAB PO PRN (21:43)
[2017-02-01] MEDS ORDERED: FUROSEMIDE 20 MG/2 ML VIAL IVP ONE (21:48)
[2017-02-02] MEDS: HYDROCODONE/APAP 5/325 TAB PO PRN ×2 (05:38→13:11)
[2017-02-02] MEDS: ceFAZolin 2 GM/DEXTROSE 100 ML IV SCH (05:39)
[2017-02-02 05:55] LABS: % IMMATURE GRANULYOCYTES 0.6 % (0.0-1.1); ABSOLUTE IMMATURE GRANULOCYTES 0.06 10^3/uL (0.00-0.10); ABSOLUTE NRBC COUNT 0.02 10^3/uL (0-0.01); ADD DIFF? NO; ADD MORPH? NO; ADD SCAN? NO; ATYPICAL LYMPHOCYTE FLAG 0 (0-99); FRAGMENT RBC FLAG 0 (0-99); HEMATOCRIT 33.2 % (38.0-47.0); HEMOGLOBIN 10.6 g/dL (12.6-16.3); LEFT SHIFT FLG 0 (0-99); LIPEMIA HEMOLYSIS FLAG 80 (0-99); MEAN CELL HEMOGLOBIN 30.4 pg (27.9-34.1); MEAN CELL HEMOGLOBIN CONCENTR. 31.9 g/dL (32.4-36.7); MEAN CELL VOLUME 95.1 fL (81.5-99.8); MEAN PLATELET VOLUME 11.3 fL (8.7-11.7); NRBC-AUTO% 0.2 % (0.0-0.2); PLATELET CLUMPS FLAG 0 (0-99); PLATELET COUNT 52 10^3/uL (150-400); RED BLOOD CELL COUNT 3.49 10^6/uL (4.18-5.33); RED CELL DISTRIBUTION WIDTH 17.7 % (11.5-15.2)
[2017-02-02 06:04] LABS: INR 1.4 (0.83-1.16); PROTIME(PATIENT) 17.3 SEC (12.0-15.0)
[2017-02-02 06:08] LABS: ANION GAP 12 mEq/L (8-16); CALCIUM 9.1 mg/dL (8.5-10.4); CARBON DIOXIDE 28 mEq/l (22-31); CHLORIDE 107 mEq/L (97-110); CREATININE 0.7 mg/dL (0.6-1.0); GLOMERULAR FILTRATION RATE > 60; GLUCOSE 167 mg/dL (70-100); POTASSIUM 4.5 mEq/L (3.5-5.2); SODIUM 147 mEq/L (134-144)
--- NOTE | 2017-02-02 07:16 | SOAPPROG ---
SOAP Progress Note Assessment/Plan: Assessment: POD#2 MV replacement with #25 Magna bioprosthesis, TV annuloplasty with #30 Lane ring, AtriClip ligation left atrial appendage Rheumatic MS/MR - s/p bioprosthetic MVR. Stable early postop course. No prolonged vasoactive support, rapid AF, backup pacing, or sig volume overload. Antithrombotic prophylaxis with Coumadin. Existing parameters for permanent AF sufficient coverage. Secondary TR - s/p TV annuloplasty. Mgmt as pr MVR. Acute expected blood loss anemia with thrombocytopenia - Stable s/p 2U PRBCs. Care with anticoag while plts depressed. Chronic class III diastolic CHF - HF meds when appropriate Permanent atrial fibrillation - Lifelong Coumadin with INR goal 2-3. Rate control with CCB as allowed by BP. Plan: Remove chest tubes and TCPWs. Start cardizem. Cont gentle diuresis. Transition back to home asthma meds. 02/02/17 07:11 Subjective: Poor sleep due to frequent voiding (post lasix). Now tired and a little wheezy. Appetite ok. Satisfactory analgesia. Objective: Vital Signs Temp Pulse Resp BP Pulse Ox 37.2 C 99 20 129/83 H 96 02/02/17 04:00 02/02/17 04:00 02/02/17 04:00 02/02/17 04:00 02/02/17 04:00 Laboratory Results 02/02/17 05:45 02/02/17 05:45 02/01/17 02/02/17 02/03/17 05:59 05:59 05:59 Intake Total 2377.9 1485.8 200 Output Total 2613 740 90 Balance -235.1 745.8 110 PT 17.3 SEC (12.0-15.0) H 02/02/17 05:45 INR 1.40 (0.83-1.16) H 02/02/17 05:45 PAF w CVR. Upward creeping SBP. Modest suppl O2 req. CTOP at removal criteria. Balanced I/Os. +4 kg overall. Labs ok. Plt count low but stable. Physical Exam - Physical Exam General Appearance: alert (when engaged, o/w closes eyes) Respiratory: wheezing (expiratory), other (blakes x 2 to bulb suction, serosang drainage) Cardiac/Chest: regular rate, rhythm, other (Sternotomy CDI) Abdomen: non-tender, soft Skin: warm/dry Extremities: other (no visible edema) ICD10 Worksheet Patient Problems: Problems Problem Status Onset S/P mitral valve replacement with bioprosthetic valve Acute ~01/31/17 S/P tricuspid valve repair Acute ~01/31/17 Asthma Chronic Chronic anticoagulation Chronic Chronic diastolic congestive heart failure Chronic Diet-controlled diabetes mellitus Chronic Longstanding persistent atrial fibrillation Chronic 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
[2017-02-02] MEDS: MULTIVITAMINS 1 EACH TAB PO SCH (09:00)
[2017-02-02] MEDS: DILTIAZEM 30 MG TAB PO SCH ×3 (09:00→17:26)
[2017-02-02] MEDS: PANTOPRAZOLE SODIUM 40 MG TAB PO SCH (09:00)
[2017-02-02] MEDS: INSULIN LISPRO 100 UNIT/ML SC SCH ×3 (09:01→19:16)
[2017-02-02] MEDS: SENNOSIDES/DOCUSATE SODIUM TAB PO SCH ×2 (09:06→20:16)
[2017-02-02] MEDS: POLYETHYLENE GLYCOL 3350 17 GM PKT PO PRN (09:06)
[2017-02-02] MEDS: BECLOMETHASONE QVAR 80 MDI IH SCH ×2 (09:13→21:08)
[2017-02-02] MEDS: MUPIROCIN 2% 22 GM OINT NS SCH (09:50)
[2017-02-02] MEDS ORDERED: ALBUTEROL HFA ANES ONLY 200 PUFFS/8.5 GM MDI IH PRN (10:59)
[2017-02-02] MEDS ORDERED: ALBUTEROL 200 PUFFS/18 GM MDI IH PRN (11:04)
[2017-02-02] MEDS ORDERED: FUROSEMIDE 20 MG/2 ML VIAL IVP ONE (13:00)
[2017-02-02] MEDS: ALBUTEROL 3 ML DEYVIAL IH PRN (15:42)
[2017-02-02] MEDS: WARFARIN SODIUM 1 MG TAB PO SCH (17:24)
[2017-02-02] MEDS ORDERED: FUROSEMIDE 40 MG/4 ML VIAL IVP ONE (19:14)
[2017-02-02] MEDS: traMADol 50 MG TAB PO PRN (20:23)
[2017-02-03] MEDS: DILTIAZEM 30 MG TAB PO SCH ×6 (01:11→23:09)
[2017-02-03] MEDS: HYDROCODONE/APAP 5/325 TAB PO PRN ×2 (04:57→19:45)
[2017-02-03 05:23] LABS: % IMMATURE GRANULYOCYTES 0.9 % (0.0-1.1); ABSOLUTE IMMATURE GRANULOCYTES 0.08 10^3/uL (0.00-0.10); ABSOLUTE NRBC COUNT 0.02 10^3/uL (0-0.01); ADD DIFF? NO; ADD MORPH? NO; ADD SCAN? NO; ATYPICAL LYMPHOCYTE FLAG 0 (0-99); FRAGMENT RBC FLAG 0 (0-99); HEMATOCRIT 31.8 % (38.0-47.0); HEMOGLOBIN 10.1 g/dL (12.6-16.3); LEFT SHIFT FLG 0 (0-99); LIPEMIA HEMOLYSIS FLAG 80 (0-99); MEAN CELL HEMOGLOBIN 30.7 pg (27.9-34.1); MEAN CELL HEMOGLOBIN CONCENTR. 31.8 g/dL (32.4-36.7); MEAN CELL VOLUME 96.7 fL (81.5-99.8); NRBC-AUTO% 0.2 % (0.0-0.2); PLATELET CLUMPS FLAG 0 (0-99); PLATELET COUNT 52 10^3/uL (150-400); RED BLOOD CELL COUNT 3.29 10^6/uL (4.18-5.33)
[2017-02-03 05:33] LABS: INR 1.33 (0.83-1.16); PROTIME(PATIENT) 16.7 SEC (12.0-15.0)
[2017-02-03 05:35] LABS: POTASSIUM 4.4 mEq/L (3.5-5.2)
[2017-02-03] MEDS: POLYETHYLENE GLYCOL 3350 17 GM PKT PO PRN (08:36)
[2017-02-03] MEDS: PANTOPRAZOLE SODIUM 40 MG TAB PO SCH (08:37)
[2017-02-03] MEDS: MULTIVITAMINS 1 EACH TAB PO SCH (08:37)
[2017-02-03] MEDS: SENNOSIDES/DOCUSATE SODIUM TAB PO SCH ×2 (08:37→19:46)
[2017-02-03] MEDS: INSULIN LISPRO 100 UNIT/ML SC SCH ×3 (08:38→18:06)
[2017-02-03] MEDS ORDERED: FUROSEMIDE 40 MG/4 ML VIAL IVP ONE ×2 (09:15→15:00)
[2017-02-03] MEDS ORDERED: POTASSIUM CL 20 MEQ TAB PO ONE (09:15)
[2017-02-03] MEDS: BECLOMETHASONE QVAR 80 MDI IH SCH ×2 (09:28→21:28)
[2017-02-03] MEDS: ALBUTEROL 3 ML DEYVIAL IH PRN (09:28)
--- NOTE | 2017-02-03 09:28 | SOAPPROG ---
SOAP Progress Note Assessment/Plan: POD #3: MV replacement with #25 Magna bioprosthesis, TV annuloplasty with #30 Lane ring Rheumatic MS/MR s/p bioprosthetic MVR - Coumadin as per permanent AF, ASA on hold d/t thrombocytopenia TR s/p TV annuloplasty - Mgmt as pr MVR Acute blood loss anemia with thrombocytopenia - Stable s/p blood transfusions - Precautionary HIT sent Chronic class III diastolic CHF - Continue Lasix, KEELY/ARB avoided d/t low blood pressure Permanent atrial fibrillation - Lifelong Coumadin with INR goal 2-3 restarted - Cardizem for rate restarted at low dose Asthma - Home meds restarted B/L pleural effusions - Right thoracentesis this morning, possible left tomorrow DVT prophylaxis - Continue SCDs, heparin SQ on hold until platelets > 100 Subjective: Tired from urinating all night. No other complaints. Objective: Vital Signs Temp Pulse Resp BP Pulse Ox 36.8 C 67 15 111/76 95 02/03/17 07:45 02/03/17 07:45 02/03/17 07:45 02/03/17 07:45 02/03/17 07:45 Laboratory Results 02/03/17 05:10 02/03/17 05:10 02/02/17 02/03/17 02/04/17 05:59 05:59 05:59 Intake Total 1485.8 1520 Output Total 740 1300 100 Balance 745.8 220 -100 PT 16.7 SEC (12.0-15.0) H 02/03/17 05:10 INR 1.33 (0.83-1.16) H 02/03/17 05:10 Physical Exam - Physical Exam General Appearance: WD/WN, alert, no apparent distress EENT: No scleral icterus (R), No scleral icterus (L) Neck: normal inspection Respiratory: wheezing, No respiratory distress Cardiac/Chest: irregularly irregular Abdomen: non-tender, soft, No distended Skin: normal color, warm/dry Extremities: pedal edema Neuro/Psych: no motor/sensory deficits, alert, normal mood/affect, oriented x 3 ICD10 Worksheet Patient Problems: Problems Problem Status Onset S/P mitral valve replacement with bioprosthetic valve Acute ~01/31/17 S/P tricuspid valve repair Acute ~01/31/17 Asthma Chronic Chronic anticoagulation Chronic Chronic diastolic congestive heart failure Chronic Diet-controlled diabetes mellitus Chronic Longstanding persistent atrial fibrillation Chronic 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
--- NOTE | 2017-02-03 11:25 | ASMTCMCOM ---
CM Note CM Note Notes: Pt will most likely discharge independent w/ supportive family when medically stable. CM available for changes. Plan: Independent Date Signed: 02/03/2017 11:25 AM Electronically Signed By:NONI Koehler
[2017-02-03] MEDS ORDERED: LIDOCAINE 1% 300 MG/30 ML SDV ONE (13:00)
--- NOTE | 2017-02-03 14:38 | GCON ---
[f rep st] CONSULTATION REFERRING PHYSICIAN: Pradeep Dow DO REASON FOR CONSULTATION: Diabetes management. PRIMARY CARE PHYSICIAN: [facility] HISTORY OF PRESENT ILLNESS: A 71-year-old female with persistent atrial fibrillation, rheumatic hear t disease with severe MR and TR, who was hospitalized 12/31 through 01/10/2017 for acute hypoxic respi ratory failure secondary to asthma exacerbation. During that stay, she underwent cardiac catheteriza tion that showed mild coronary artery disease and demonstrated severe MR and TR, and biatrial enlarge ment. Patient has also had enterovirus infection at that time, which has resolved. She underwent elective mitral valve replacement along with tricuspid annuloplasty on 01/31/2017, by Magda Dow. Her preop labs demonstrated an elevated A1c of 7. My interview was done with a informatica developer. She currently denies chest pain, cough, or shortne ss of breath. No fevers. Her daughter helps her with all of her medication at home. REVIEW OF SYSTEMS: I completed a 10-point review of system. PAST MEDICAL HISTORY: 1. Asthma, on twice daily DuoNeb at home. 2. Recent enterovirus syndrome. 3. Valvular persistent atrial fibrillation. 4. Rheumatic heart disease with severe MR, severe TR. 5. Chronic coronary artery disease. 6. Chronic diastolic congestive heart failure. 7. Chronic hypertension. PAST SURGICAL HISTORY: Prior valve replacement. FAMILY HISTORY: Mother with heart disease. SOCIAL HISTORY: She recently moved from [place] to live with her daughter and granddaughter here in [place]. No alcohol, tobacco, or illicits. ALLERGIES: None. HOME MEDICATIONS: Coumadin 2 mg daily, spironolactone 25 mg daily, multivitamin, Lasix 40 mg daily, Lovenox 40 mg twice daily, but this was prior to surgery. Diltiazem 300 mg daily. Qvar 80, aspirin 81 mg daily, albuterol nebs twice daily scheduled and p.r.n. ProAir as needed. PHYSICAL EXAMINATION: VITAL SIGNS: Temperature 36.9, blood pressure 115/70, heart rate is in the 90 s, respirations 15, 90% on 2 L. GENERAL: Lying in bed, no acute distress. HEENT: PERRLA. EOMI. Oropharynx clear. CV: Irregularly irregular. Surgical sternal incision is healing well. RESPIRATO RY: Expiratory wheezing in the upper bean of lungs, decreased breath sounds at bases. GI: Soft, nontender, nondistended. Positive bowel sounds. : No Medel. MUSCULOSKELETAL: Moving all 4 extr emities. NEUROLOGIC: Alert. Cranial nerves 2 through 12 intact. PSYCH: Alert. LABS: WBC is 9, hemoglobin 10, hematocrit 31, platelets 52. INR is 1.3. Sodium 147, potassium 4.5, chloride 107, BUN 12, creatinine 0.7, glucose 168-254. A1c was 7. Chest x-ray, personally reviewed by me, bilateral pleural effusion. Sternotomy wires in place. ASSESSMENT AND PLAN: 1. Newly diagnosed diabetes: A1c is 7. Given coronary disease, would benefit from maximized medica l management of blood pressure, lipids and sugars. We will start metformin 500 mg twice daily, slidi ng scale while here. She does not speak Chinese and her daughter is her main mica miner blasting, so I will ar range a time to meet with her to discuss medications. She will also benefit from a diet consultation . 2. 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 Coumadin i s on hold with thrombocytopenia. 3. Severe tricuspid regurgitation, status post angioplasty. Will need Coumadin once platelets stabl e. 4. Acute blood loss anemia, status post transfusion. Heparin-induced thrombocytopenia panel is pend ing. 5. Decompensated class 3 diastolic heart failure. Continue Lasix. Angiotensin receptor blockers he ld with low blood pressure. 6. Permanent atrial fibrillation. Lifelong Coumadin with goal 2-3. 7. Acute hypoxic respiratory failure: Multifactorial with bilateral effusions and underlying asthma . She does use her nebulizer twice a day, so I will schedule those here. Plan for thoracentesis tomagda hines. 8. Deep venous thrombosis prophylaxis. Sequential compression devices. We will follow along with you. Please call if any questions. /[id number]/MODL
[2017-02-03] MEDS: WARFARIN SODIUM 1 MG TAB PO SCH (17:18)
[2017-02-03] MEDS: metFORMIN HCL 500 MG TAB PO SCH (17:18)
[2017-02-03] MEDS: ALBUTEROL 3 ML DEYVIAL IH SCH (21:27)
[2017-02-04] MEDS: ALBUTEROL 3 ML DEYVIAL IH PRN (05:32)
[2017-02-04] MEDS: DILTIAZEM 30 MG TAB PO SCH ×4 (05:47→23:11)
[2017-02-04 06:34] LABS: HEMATOCRIT 27.4 % (38.0-47.0); HEMOGLOBIN 8.9 g/dL (12.6-16.3); MEAN CELL HEMOGLOBIN 31.1 pg (27.9-34.1); MEAN CELL HEMOGLOBIN CONCENTR. 32.5 g/dL (32.4-36.7); MEAN CELL VOLUME 95.8 fL (81.5-99.8); RED BLOOD CELL COUNT 2.86 10^6/uL (4.18-5.33); RED CELL DISTRIBUTION WIDTH 16.6 % (11.5-15.2)
[2017-02-04 06:43] LABS: INR 1.42 (0.83-1.16); PROTIME(PATIENT) 17.5 SEC (12.0-15.0)
[2017-02-04 06:58] LABS: ANION GAP 8 mEq/L (8-16); CALCIUM 8.6 mg/dL (8.5-10.4); CARBON DIOXIDE 36 mEq/l (22-31); CHLORIDE 96 mEq/L (97-110); CREATININE 0.5 mg/dL (0.6-1.0); GLOMERULAR FILTRATION RATE > 60; GLUCOSE 129 mg/dL (70-100); POTASSIUM 3.8 mEq/L (3.5-5.2); SODIUM 140 mEq/L (134-144)
--- NOTE | 2017-02-04 07:57 | HOSPPROG ---
Hospitalist Progress Note Assessment/Plan: #Type 2 DM: good glucose control. Cont Metformin. Dietary consult for nutrition education #MS/MR: s/p bioprosthetic MV. On coumadin #TR: s/p annuloplasty #Acute hypoxic resp failure: due to volume overload. s/p Right thoracentesis 02/03, left to be done today. Cont diuresis #Deconditioning: working well with PT #Acutely decompensated diastolic HF: cont IV lasix #Asthma: less wheezing today with scheduled nebs #Permanent a fib: rate controlled. On coumadin #Thrombocytopenia: monitor closely #Dementia #Diet: DM #Disp: will cont to follow, please call if questions Subjective: breathing better after thoracentensis yesterday. Less wheezy today Objective: Vital Signs Temp Pulse Resp BP Pulse Ox 37.4 C 106 H 14 101/77 2 L 02/04/17 07:43 02/04/17 07:43 02/04/17 07:43 02/04/17 07:43 02/04/17 07:43 Laboratory Results 02/04/17 06:20 02/04/17 06:20 02/03/17 02/04/17 02/05/17 05:59 05:59 05:59 Intake Total 1520 1410 Output Total 1300 2400 Balance 220 -990 PT 17.5 SEC (12.0-15.0) H 02/04/17 06:20 INR 1.42 (0.83-1.16) H 02/04/17 06:20 - Physical Exam Constitutional: no apparent distress, chronically ill appearing Eyes: PERRL Ears, Nose, Mouth, Throat: moist mucous membranes Cardiovascular: irregularly irregular, edema (+1 LE edema), other Respiratory: other (decreased BS mid-lung to base on left. Right breath sounds improved. No wheezing) Gastrointestinal: normoactive bowel sounds Genitourinary: no bladder fullness, No valladares in urethra Skin: warm Musculoskeletal: full muscle strength Neurologic: AAOx3, CN II-XII Intact Psychiatric: interacting appropriately ICD10 Worksheet Patient Problems: Problems Problem Status Onset S/P mitral valve replacement with bioprosthetic valve Acute ~01/31/17 S/P tricuspid valve repair Acute ~01/31/17 Asthma Chronic Chronic anticoagulation Chronic Chronic diastolic congestive heart failure Chronic Diet-controlled diabetes mellitus Chronic Longstanding persistent atrial fibrillation Chronic 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
--- NOTE | 2017-02-04 08:28 | SOAPPROG ---
SOAP Progress Note Assessment/Plan: Assessment: POD#4 MV replacement with #25 Magna bioprosthesis, TV annuloplasty with #30 Lane ring, AtriClip ligation left atrial appendage POD#1 Rt thoracentesis 550ml Rheumatic MS/MR - s/p bioprosthetic MVR. Stable early postop course. No prolonged vasoactive support, rapid AF, backup pacing, or sig volume overload. Antithrombotic prophylaxis with Coumadin. Existing parameters for permanent AF sufficient coverage. Secondary TR - s/p TV annuloplasty. Mgmt as pr MVR. Acute expected blood loss anemia with thrombocytopenia - Stable s/p 2U PRBCs. Precautionary HIT pending. Care with anticoag while plts depressed. Acute on chronic dCHF, class III - Exacerbated by fluid overload and PHTN/ asthma. Small to moderate bilateral pleural effusions post chest tube removal. Rt side aspirated yest. Left side may benefit from thoracentesis as well. Interim intensification of diuresis. Insufficient BP for ARB. Permanent atrial fibrillation - Lifelong Coumadin with INR goal 2-3; home regimen resumed without loading doses as left atrial appendage excluded. Rate control with CCB as allowed by BP. Asthma - Home MDIs resumed. Type 2 diabetes - By preop A1c of 7%. IM consulted and started on metformin. Nonobstructive CAD - Stable. Secondary prevention with baby ASA and statin (as per cards). BB avoided d/t asthma. Plan: Cont cardizem IR 30 mg q6h with conservative hold parameters. Cont IV diuresis. Cont aggressive pulm toilet. Consider left US guided thoracentesis. Cont Coumadin 2 mg daily. Dispo - [facility] w [facility] next 2-3 days. 02/04/17 08:25 Subjective: Doing ok. Breathing easier, but still fairly weak and with limited stamina. Min incisional discomfort. +BM. Objective: Vital Signs Temp Pulse Resp BP Pulse Ox 37.4 C 106 H 14 101/77 95 02/04/17 07:43 02/04/17 07:43 02/04/17 07:43 02/04/17 07:43 02/04/17 07:43 Laboratory Results 02/04/17 06:20 02/04/17 06:20 02/03/17 02/04/17 02/05/17 05:59 05:59 05:59 Intake Total 1520 1410 Output Total 1300 2400 Balance 220 -990 PT 17.5 SEC (12.0-15.0) H 02/04/17 06:20 INR 1.42 (0.83-1.16) H 02/04/17 06:20 AF w CVR. SBPs labile, 100s-120s. Stable sats on 2 Lpm O2. Likely could wean to 1 Lpm. Improved fluid balance on IV lasix. Still +2.5 kg. CXR-> mild pulm vasc congestion, small-mod bilat pleural effusions L>R. CO2 sugg contraction alkalosis, will watch diuresis. Plts appear to be rebounding. Appropriate rise in INR. Physical Exam - Physical Exam General Appearance: alert, no apparent distress Respiratory: decreased breath sounds (left base), crackles (scattered) Cardiac/Chest: irregularly irregular, other (Sternotomy CDI) Abdomen: non-tender, soft Skin: warm/dry Extremities: swelling (trace) ICD10 Worksheet Patient Problems: Problems Problem Status Onset S/P mitral valve replacement with bioprosthetic valve Acute ~01/31/17 S/P tricuspid valve repair Acute ~01/31/17 Asthma Chronic Chronic anticoagulation Chronic Chronic diastolic congestive heart failure Chronic Diet-controlled diabetes mellitus Chronic Longstanding persistent atrial fibrillation Chronic 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
[2017-02-04] MEDS ORDERED: SENNOSIDES/DOCUSATE SODIUM TAB PO PRN (09:00)
[2017-02-04] MEDS ORDERED: FUROSEMIDE 40 MG/4 ML VIAL IVP ONE (09:00)
[2017-02-04] MEDS ORDERED: POTASSIUM CL 20 MEQ TAB PO ONE (09:00)
[2017-02-04] MEDS: metFORMIN HCL 500 MG TAB PO SCH ×2 (09:47→18:10)
[2017-02-04] MEDS: INSULIN LISPRO 100 UNIT/ML SC SCH ×3 (09:47→18:11)
[2017-02-04] MEDS: MULTIVITAMINS 1 EACH TAB PO SCH (09:48)
[2017-02-04] MEDS: PANTOPRAZOLE SODIUM 40 MG TAB PO SCH (09:48)
[2017-02-04] MEDS: HYDROCODONE/APAP 5/325 TAB PO PRN (09:53)
[2017-02-04] MEDS: ALBUTEROL 3 ML DEYVIAL IH SCH ×2 (11:17→20:37)
[2017-02-04] MEDS: BECLOMETHASONE QVAR 80 MDI IH SCH ×2 (11:33→20:37)
[2017-02-04] MEDS ORDERED: LIDOCAINE 1% 300 MG/30 ML SDV ONE (15:04)
[2017-02-04] MEDS: WARFARIN SODIUM 1 MG TAB PO SCH (18:10)
[2017-02-04] MEDS ORDERED: FUROSEMIDE 40 MG TAB PO SCH (19:15)
[2017-02-04 19:26] LABS: HEPARIN INDUCED ANTIBODY Negative (Negative); HEPARIN-PF4 IgG ANTIBODY ELISA < 0.075 OD (<0.400)
[2017-02-05] MEDS: HYDROCODONE/APAP 5/325 TAB PO PRN ×3 (01:36→23:15)
[2017-02-05] MEDS: DILTIAZEM 30 MG TAB PO SCH ×4 (05:52→23:17)
[2017-02-05 06:09] LABS: INR 1.49 (0.83-1.16); PROTIME(PATIENT) 18.2 SEC (12.0-15.0)
[2017-02-05 06:15] LABS: ANION GAP 10 mEq/L (8-16); CALCIUM 8.7 mg/dL (8.5-10.4); CARBON DIOXIDE 34 mEq/l (22-31); CHLORIDE 99 mEq/L (97-110); CREATININE 0.5 mg/dL (0.6-1.0); GLOMERULAR FILTRATION RATE > 60; GLUCOSE 103 mg/dL (70-100); POTASSIUM 3.7 mEq/L (3.5-5.2); SODIUM 143 mEq/L (134-144)
--- NOTE | 2017-02-05 08:34 | HOSPPROG ---
Hospitalist Progress Note Assessment/Plan: #Type 2 DM: good glucose control. Cont Metformin. Dietary consult for nutrition education #MS/MR: s/p bioprosthetic MV. On coumadin #TR: s/p annuloplasty #Bilateral pleural effusions: s/p BL thoracenteses #Acute hypoxic resp failure: due to volume overload. #Deconditioning: working well with PT #Acutely decompensated diastolic HF: changed to home diuretics #Asthma: cont scheduled nebs #Permanent a fib: rate controlled. On coumadin #Thrombocytopenia: monitor closely. Platelet mildly improved #Dementia: per fam,dick, normally wouldn't know month or year; at baseline. Avoid central-acting drugs, blinds opens, up to chair #Diet: DM #Disp: will cont to follow, please call if questions Subjective: Feeling better Objective: Vital Signs Temp Pulse Resp BP Pulse Ox 36.8 C 91 18 102/59 L 95 02/05/17 07:07 02/05/17 07:07 02/05/17 07:07 02/05/17 07:07 02/05/17 07:07 Laboratory Results 02/05/17 05:30 02/05/17 05:30 02/04/17 02/05/17 02/06/17 05:59 05:59 05:59 Intake Total 1410 300 Output Total 2400 Balance -990 300 PT 18.2 SEC (12.0-15.0) H 02/05/17 05:30 INR 1.49 (0.83-1.16) H 02/05/17 05:30 - Physical Exam Constitutional: no apparent distress, chronically ill appearing Eyes: PERRL Ears, Nose, Mouth, Throat: moist mucous membranes Cardiovascular: regular rate and rhythym, edema (edema improved) Respiratory: no respiratory distress, reduced air movement (decreased BS at both bases) Gastrointestinal: normoactive bowel sounds, soft, non-tender abdomen Genitourinary: no bladder fullness Skin: warm Musculoskeletal: full muscle strength Neurologic: AAOx3, CN II-XII Intact Psychiatric: interacting appropriately ICD10 Worksheet Patient Problems: Problems Problem Status Onset S/P mitral valve replacement with bioprosthetic valve Acute ~01/31/17 S/P tricuspid valve repair Acute ~01/31/17 Asthma Chronic Chronic anticoagulation Chronic Chronic diastolic congestive heart failure Chronic Diet-controlled diabetes mellitus Chronic Longstanding persistent atrial fibrillation Chronic 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
--- NOTE | 2017-02-05 08:50 | SOAPPROG ---
<Kellee Garcia T - Last Filed: 02/05/17 11:54> SOAP Progress Note Assessment/Plan: Assessment: POD#5 MV replacement with #25 Magna bioprosthesis, TV annuloplasty with #[address] ring, AtriClip ligation left atrial appendage POD#2 Rt thoracentesis 550ml POD#1 Left thoracentesis 400 ml Rheumatic MS/MR - s/p bioprosthetic MVR. Stable early postop course. No prolonged vasoactive support, rapid AF, backup pacing, or sig volume overload. Antithrombotic prophylaxis with Coumadin. Existing parameters for permanent AF sufficient coverage. Secondary TR - s/p TV annuloplasty. Mgmt as pr MVR. Acute expected blood loss anemia with thrombocytopenia - Stable s/p 2U PRBCs. Precautionary HIT neg. Platelet rebound noted. Care with anticoag while plts < 100. Acute on chronic dCHF, class III - Exacerbated by fluid overload and PHTN/ asthma. Small to moderate bilateral pleural effusions post chest tube removal aspirated by IR. Diuresis intensified and well tolerated. Insufficient BP for ARB. Permanent atrial fibrillation - Lifelong Coumadin with INR goal 2-3; home regimen resumed without loading doses as left atrial appendage excluded; bridge therapy avoided as platelets depressed. Rate control with CCB as allowed by BP. Asthma - Home MDIs resumed. Type 2 diabetes - By preop A1c of 7%. IM consulted and started on metformin. Nonobstructive CAD - Stable. Secondary prevention with baby ASA and statin. BB avoided d/t asthma. Plan: Cont cardizem IR 30 mg q6h with conservative hold parameters. Switch to home lasix/aldactone regimen. Resume daily ASA. Cont Coumadin 2 mg daily. Start statin tomorrow if LFTs ok. Cont aggressive pulm toilet and inc activity. Baseline postop echo today. Dispo - Home w [facility] tomorrow or 02/05/17 08:35 Subjective: Sleeping and eating well but feels tired and weak. Doesn't think she'll be ready for home tomorrow. Objective: Vital Signs Temp Pulse Resp BP Pulse Ox 36.8 C 91 18 102/59 L 95 02/05/17 07:07 02/05/17 07:07 02/05/17 07:07 02/05/17 07:07 02/05/17 07:07 Laboratory Results 02/05/17 05:30 02/05/17 05:30 02/04/17 02/05/17 02/06/17 05:59 05:59 05:59 Intake Total 1410 300 Output Total 2400 Balance -990 300 PT 18.2 SEC (12.0-15.0) H 02/05/17 05:30 INR 1.49 (0.83-1.16) H 02/05/17 05:30 AF w CVR and SBPs > 100. Excellent sats on 2 lpm, likely could wean to 1 lpm. Adequate fluid balance. Within 3 lbs of baseline wt. Labs ok. Slow but steady rise in INR. - Pending Discharge Pending Discharge Within 24 Hours: Yes Pending Discharge Date: 02/06/17 Pending Discharge Time: 11:00 Physical Exam - Physical Exam General Appearance: alert, no apparent distress Respiratory: lungs clear (improved insp effort) Cardiac/Chest: irregularly irregular, other (Sternotomy and CT sites CDI) Abdomen: non-tender, soft Skin: warm/dry Extremities: swelling (trace-1+ dependent) ICD10 Worksheet Patient Problems: Problems Problem Status Onset S/P mitral valve replacement with bioprosthetic valve Acute ~01/31/17 S/P tricuspid valve repair Acute ~01/31/17 Asthma Chronic Chronic anticoagulation Chronic Chronic diastolic congestive heart failure Chronic Diet-controlled diabetes mellitus Chronic Longstanding persistent atrial fibrillation Chronic 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 <Deborah Arana K - Last Filed: 02/05/17 20:08> SOAP Progress Note Assessment/Plan: Patient seen and examined. No major issues or complaints. Agree with assessment and plan by Kellee Garcia PA-C. Likely home in next few days given her frailty. Objective: Vital Signs Temp Pulse Resp BP Pulse Ox 37 C 101 H 19 95/60 L 96 02/05/17 20:00 02/05/17 20:00 02/05/17 20:00 02/05/17 20:00 02/05/17 20:00 Laboratory Results 02/05/17 05:30 02/05/17 05:30 02/04/17 02/05/17 02/06/17 05:59 05:59 05:59 Intake Total 1410 300 490 Output Total 2400 1000 Balance -990 300 -510 PT 18.2 SEC (12.0-15.0) H 02/05/17 05:30 INR 1.49 (0.83-1.16) H 02/05/17 05:30
[2017-02-05] MEDS: SPIRONOLACTONE 25 MG TAB PO SCH (09:22)
[2017-02-05] MEDS: FUROSEMIDE 40 MG TAB PO SCH (09:22)
[2017-02-05] MEDS: metFORMIN HCL 500 MG TAB PO SCH ×2 (09:22→18:11)
[2017-02-05] MEDS: MULTIVITAMINS 1 EACH TAB PO SCH (09:22)
[2017-02-05] MEDS: PANTOPRAZOLE SODIUM 40 MG TAB PO SCH (09:22)
[2017-02-05] MEDS: INSULIN LISPRO 100 UNIT/ML SC SCH ×3 (09:23→17:58)
[2017-02-05] MEDS: ASPIRIN 81 MG CHEWABLE TAB PO SCH (09:23)
[2017-02-05] MEDS: BECLOMETHASONE QVAR 80 MDI IH SCH ×2 (09:26→19:46)
[2017-02-05] MEDS: ALBUTEROL 3 ML DEYVIAL IH SCH ×2 (09:26→19:49)
[2017-02-05] MEDS: WARFARIN SODIUM 1 MG TAB PO SCH (15:39)
[2017-02-06] MEDS: DILTIAZEM 30 MG TAB PO SCH ×3 (04:53→17:30)
[2017-02-06 05:12] LABS: HEMATOCRIT 31.1 % (38.0-47.0); HEMOGLOBIN 10.2 g/dL (12.6-16.3); MEAN CELL HEMOGLOBIN 31.1 pg (27.9-34.1); MEAN CELL HEMOGLOBIN CONCENTR. 32.8 g/dL (32.4-36.7); MEAN CELL VOLUME 94.8 fL (81.5-99.8); RED BLOOD CELL COUNT 3.28 10^6/uL (4.18-5.33); RED CELL DISTRIBUTION WIDTH 16.2 % (11.5-15.2)
[2017-02-06 05:31] LABS: INR 1.57 (0.83-1.16); PROTIME(PATIENT) 18.9 SEC (12.0-15.0)
[2017-02-06 05:36] LABS: ALANINE AMINOTRANSFERASE 33 IU/L (9-52); ALBUMIN 3.3 g/dL (3.5-5.0); ALKALINE PHOSPHATASE 100 IU/L (38-126); ANION GAP 12 mEq/L (8-16); ASPARTATE AMINOTRANSFERASE 47 IU/L (14-46); BILIRUBIN,TOTAL 1.2 mg/dL (0.1-1.4); CALCIUM 9.1 mg/dL (8.5-10.4); CARBON DIOXIDE 34 mEq/l (22-31); CHLORIDE 96 mEq/L (97-110); CREATININE 0.6 mg/dL (0.6-1.0); GLOMERULAR FILTRATION RATE > 60; GLUCOSE 132 mg/dL (70-100); POTASSIUM 3.6 mEq/L (3.5-5.2); SODIUM 142 mEq/L (134-144); TOTAL PROTEIN 5.3 g/dL (6.3-8.2)
--- NOTE | 2017-02-06 08:35 | SOAPPROG ---
SOAP Progress Note Assessment/Plan: Assessment: POD#6 MV replacement with #25 Magna bioprosthesis, TV annuloplasty with #30 [address] ring, AtriClip ligation left atrial appendage POD#3 Rt thoracentesis 550ml POD#2 Left thoracentesis 400 ml Rheumatic MS/MR - s/p bioprosthetic MVR. Stable early postop course. No prolonged vasoactive support, rapid AF, backup pacing, or sig volume overload. Antithrombotic prophylaxis with Coumadin. Existing parameters for permanent AF sufficient coverage. Secondary TR - s/p TV annuloplasty. Mgmt as pr MVR. Acute expected blood loss anemia with thrombocytopenia - Stable s/p 2U PRBCs. Precautionary HIT neg. Platelet rebound noted. Acute on chronic dCHF, class III - Exacerbated by fluid overload and PHTN/ asthma. Small to moderate bilateral pleural effusions post chest tube removal aspirated by IR. Diuresis intensified and well tolerated. Postop echo notable for hyperdynamic LV systolic fx and mild RVSD. Uptitration of CCB as tolerated. Insufficient BP for ARB. Permanent atrial fibrillation - Lifelong Coumadin with INR goal 2-3; home regimen resumed without loading doses as left atrial appendage excluded; bridge therapy avoided as platelets depressed. Rate control with CCB as allowed by BP. Asthma - Home MDIs resumed. Type 2 diabetes - By preop A1c of 7%. IM consulted and started on metformin. Nonobstructive CAD - Stable. Secondary prevention with baby ASA and statin. BB avoided d/t asthma. Plan: Inc cardizem IR to 45 mg q6h. Consider switch to 180mg XR tomorrow. Cont home lasix/aldactone regimen. Replete K. Cont daily ASA. Cont home Coumadin 2 mg daily. Start Lipitor. Cont aggressive pulm toilet and inc activity. Dispo - Anticipate home without services tomorrow (has [facility] and not eligible for [facility]). 02/06/17 08:32 Subjective: Comfortable at rest. Aware of heart racing with ambulation. No dizziness or inc dyspnea. Objective: Vital Signs Temp Pulse Resp BP Pulse Ox 37.2 C 123 H 13 111/76 95 02/06/17 04:00 02/06/17 04:53 02/06/17 04:00 02/06/17 04:53 02/06/17 04:00 Laboratory Results 02/06/17 05:00 02/06/17 05:00 02/05/17 02/06/17 02/07/17 05:59 05:59 05:59 Intake Total 300 740 Output Total 1300 100 Balance 300 -560 -100 PT 18.9 SEC (12.0-15.0) H 02/06/17 05:00 INR 1.57 (0.83-1.16) H 02/06/17 05:00 AF with VVR but poorer HR control, likely secondary to held CCB doses d/t BP hold parameter < 100. More robust BP this am and CCB resumed with BP hold parameter < 90. Adequate fluid balance. Essentially at baseline wt. CXR-> no pulm vasc congestion, small residual pleural effusion bilat. INR cont slow but steady rise. Physical Exam - Physical Exam General Appearance: alert, no apparent distress Respiratory: lungs clear (grossly) Cardiac/Chest: tachycardia, irregularly irregular Abdomen: non-tender, soft Skin: warm/dry Extremities: swelling (trace-1+ dependent) ICD10 Worksheet Patient Problems: Problems Problem Status Onset S/P mitral valve replacement with bioprosthetic valve Acute ~01/31/17 S/P tricuspid valve repair Acute ~01/31/17 Asthma Chronic Chronic anticoagulation Chronic Chronic diastolic congestive heart failure Chronic Diet-controlled diabetes mellitus Chronic Longstanding persistent atrial fibrillation Chronic 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
--- NOTE | 2017-02-06 08:41 | HOSPPROG ---
Hospitalist Progress Note Assessment/Plan: #Type 2 DM: good glucose control. Cont Metformin 500mg at discharge. Dietary consult for nutrition education #MS/MR: s/p bioprosthetic MV. On coumadin #TR: s/p annuloplasty #Bilateral pleural effusions: s/p BL thoracenteses #Acute hypoxic resp failure: due to volume overload. #Deconditioning: working well with PT #Acutely decompensated diastolic HF: changed to home diuretics #Asthma: cont scheduled nebs #Permanent a fib: rate controlled. On coumadin #Thrombocytopenia: monitor closely. Platelet mildly improved #Dementia: per fam,dick, normally wouldn't know month or year; at baseline. Avoid central-acting drugs, blinds opens, up to chair #Diet: DM Will sign off. Please call if any questions. Subjective: feeling stronger. Breathing improved Objective: Vital Signs Temp Pulse Resp BP Pulse Ox 37.2 C 123 H 13 111/76 95 02/06/17 04:00 02/06/17 04:53 02/06/17 04:00 02/06/17 04:53 02/06/17 04:00 Laboratory Results 02/06/17 05:00 02/06/17 05:00 02/05/17 02/06/17 02/07/17 05:59 05:59 05:59 Intake Total 300 740 Output Total 1300 100 Balance 300 -560 -100 PT 18.9 SEC (12.0-15.0) H 02/06/17 05:00 INR 1.57 (0.83-1.16) H 02/06/17 05:00 - Physical Exam Constitutional: no apparent distress Eyes: PERRL Ears, Nose, Mouth, Throat: moist mucous membranes Cardiovascular: regular rate and rhythym, edema Respiratory: other (decreased breath sounds at bases) Gastrointestinal: normoactive bowel sounds, soft, non-tender abdomen Genitourinary: no bladder fullness, No valladares in urethra Skin: warm Musculoskeletal: full muscle strength Neurologic: AAOx3, CN II-XII Intact ICD10 Worksheet Patient Problems: Problems Problem Status Onset S/P mitral valve replacement with bioprosthetic valve Acute ~01/31/17 S/P tricuspid valve repair Acute ~01/31/17 Asthma Chronic Chronic anticoagulation Chronic Chronic diastolic congestive heart failure Chronic Diet-controlled diabetes mellitus Chronic Longstanding persistent atrial fibrillation Chronic 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
[2017-02-06] MEDS ORDERED: DILTIAZEM 30 MG TAB PO ONE (08:45)
[2017-02-06] MEDS: metFORMIN HCL 500 MG TAB PO SCH ×2 (08:58→17:30)
[2017-02-06] MEDS: INSULIN LISPRO 100 UNIT/ML SC SCH ×3 (08:59→22:59)
[2017-02-06] MEDS ORDERED: POTASSIUM CL 20 MEQ TAB PO ONE (09:00)
[2017-02-06] MEDS: ASPIRIN 81 MG CHEWABLE TAB PO SCH (09:00)
[2017-02-06] MEDS: MULTIVITAMINS 1 EACH TAB PO SCH (09:01)
[2017-02-06] MEDS: SPIRONOLACTONE 25 MG TAB PO SCH (09:01)
[2017-02-06] MEDS: PANTOPRAZOLE SODIUM 40 MG TAB PO SCH (09:02)
[2017-02-06] MEDS: FUROSEMIDE 40 MG TAB PO SCH (09:12)
--- NOTE | 2017-02-06 09:25 | ECHO ---
[email or web address] [address] [address] Main: [phone] Fax: Transthoracic Echocardiogram Name: CORNEL BARNETT MR#: [id number] Study Date: 02/05/2017 Study Time: 08:04 AM Date of : 1945 Age: 71 year(s) Height: 149.9 cm (59 in.) Weight: 58.97 kg (130 lb.) BSA: 1.54 m2 Gender: Female Examination: Echo Indication: Image Quality: Technically Difficult Contrast: Requested by: Kellee Garcia BP: 102 mmHg/59 mmHg Heart Rate: Rhythm: Indication: Procedure Staff Wholesale Agronomist: Jenifer Guadalupe Reading Physician: Marshall Razo Requesting Provider: Conclusions: Normal size left ventricle. No LV hypertrophy. Cannot rule out wall motion abnormality due to poor endocardial resolution. Right Ventricle: Mildly to moderately reduced right ventricular function. The left atrium is severely dilated. There is no mitral valve regurgitation. MVR #25 CE Magna Bioprosthesis Mean PG 5 mmHg, max PG 12 mmHG, Max velocity 1.73 m/s. Mild aortic cusp calcification is noted. There is no aortic valve regurgitation. Mild tricuspid regurgitation is present. TVA #30 MC3 ring present. Measurements: Chambers Valvular Assessment AV/MV Valvular Assessment TV/PV Normal Normal Normal Name Value Range Name Value Range Name Value Range IVSd (2D): 0.8 cm (0.6 cm-1.1 AV meanP mmHg ( - ) TR Vmax: 2.47 mm/s ( - ) cm) LVOT Vmax: 0.82 m/s (0.7 m/s-1.1 TR PGmax: 24 mmHg ( - ) LVDd (2D): 3.1 cm (3.9 cm-5.3 m/s) PV Vmax: 1.03 m/s (0.6 m/s-0.9 cm) MV E Vmax: 1.62 m/s ( - ) m/s) LVDs (2D): 1.8 cm (2.1 cm-4 MV meanP mmHg ( - ) PV PGmax: 4 mmHg ( - ) cm) LVPWd (2D): 0.9 cm ( - ) LVEF (2D): 76 (>=54 %) Continued Measurements: Chambers Valvular Assessment AV/MV Patient: CORNEL BARNETT Study Date: 02/05/2017 Page 1 of 2 08:04 AM Name Value Name Value LADs Lon.2 cm MV DecTime: 373 m/s LA Area: 37.1 cm2 MV VTI: 39.10 cm LA Volume: 170 ml LA Volume Index: 110.4 ml/m2 Findings: Left Ventricle: Normal size left ventricle. No LV hypertrophy. Cannot rule out wall motion abnormality due to poor endocardial resolution. EF is 76 %. Unable to assess diastolic dysfunction. Right Ventricle: Normal size right ventricle. Mildly to moderately reduced right ventricular function. Left Atrium: The left atrium is severely dilated. Right Atrium: The right atrium is not well visualized. Mitral Valve: Mitral valve prosthesis normal. There is no mitral valve regurgitation. MVR #25 CE Magna Bioprosthesis Mean PG 5 mmHg, max PG 12 mmHG, Max velocity 1.73 m/s. Aortic Valve: Aortic valve is not visualized. Mild aortic cusp calcification is noted. There is no aortic valve regurgitation. No aortic valve stenosis is present. Tricuspid Valve: Mild tricuspid regurgitation is present. TVA #30 MC3 ring present. Pulmonic Valve: Pulmonary valve not well visualized. IVC: The IVC is not visualized. Pericardium: No pericardial effusion. There is pericardial fat. (No Signature Object) Patient: CORNEL BARNETT Study Date: 02/05/2017 Page 2 of 2 08:04 AM [id number]
[2017-02-06] MEDS: ALBUTEROL 3 ML DEYVIAL IH SCH ×2 (10:46→20:35)
[2017-02-06] MEDS: BECLOMETHASONE QVAR 80 MDI IH SCH ×2 (10:48→20:36)
--- NOTE | 2017-02-06 15:39 | ASMTCMCOM ---
CM Note CM Note Notes: Patient has [employer] ins. Unfortunately it only pays for hospital services. She will go home with family. Date Signed: 02/06/2017 03:39 PM Electronically Signed By:Kath Kimball LCSW
[2017-02-06] MEDS: WARFARIN SODIUM 1 MG TAB PO SCH (17:30)
[2017-02-06] MEDS ORDERED: ATORVASTATIN CALCIUM 10 MG TAB PO SCH (21:00)
[2017-02-06] MEDS: HYDROCODONE/APAP 5/325 TAB PO PRN (21:26)
[2017-02-07] MEDS: DILTIAZEM 30 MG TAB PO SCH ×2 (05:37)
[2017-02-07 05:59] LABS: INR 1.58 (0.83-1.16)
[2017-02-07 06:06] LABS: POTASSIUM 3.8 mEq/L (3.5-5.2)
--- NOTE | 2017-02-07 07:05 | SOAPPROG ---
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 - Coumadin as per permanent AF TR s/p TV annuloplasty - Mgmt as pr MVR Acute blood loss anemia with thrombocytopenia - Stable s/p blood transfusions - Platelets increasing, HIT neg Chronic class III diastolic CHF - Continue Lasix Permanent atrial fibrillation - Lifelong Coumadin with INR goal 2-3 restarted - Cardizem for rate control reintroduced at lowe dose Asthma - Home meds restarted B/L pleural effusions s/p thoracentesis Type 2 DM - Continue metformin DVT prophylaxis - Continue SCDs, heparin SQ on hold until platelets > 100 Disposition - Home today without services as insurance will not provide Subjective: Denies CP/SOB. Walked this morning. Objective: Vital Signs Temp Pulse Resp BP Pulse Ox 36.9 C 88 15 111/61 96 02/07/17 04:00 02/07/17 05:37 02/07/17 04:00 02/07/17 05:37 02/07/17 04:00 Laboratory Results 02/06/17 05:00 02/07/17 05:30 02/06/17 02/07/17 02/08/17 05:59 05:59 05:59 Intake Total 740 700 Output Total 1300 1900 Balance -560 -1200 PT 19.0 SEC (12.0-15.0) H 02/07/17 05:30 INR 1.58 (0.83-1.16) H 02/07/17 05:30 Physical Exam - Physical Exam General Appearance: WD/WN, alert, no apparent distress EENT: No scleral icterus (R), No scleral icterus (L) Neck: normal inspection Respiratory: No respiratory distress Cardiac/Chest: irregularly irregular Abdomen: non-tender, soft, No distended Skin: normal color, warm/dry Extremities: No pedal edema Neuro/Psych: no motor/sensory deficits, alert, normal mood/affect, oriented x 3 ICD10 Worksheet Patient Problems: Problems Problem Status Onset S/P mitral valve replacement with bioprosthetic valve Acute ~01/31/17 S/P tricuspid valve repair Acute ~01/31/17 Asthma Chronic Chronic anticoagulation Chronic Chronic diastolic congestive heart failure Chronic Diet-controlled diabetes mellitus Chronic Longstanding persistent atrial fibrillation Chronic 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
--- NOTE | 2017-02-07 08:07 | PDHOMEO2F ---
Home Oxygen Face to Face Home Orders: I certify that a physician or a nurse practitioner or physician's animal care assistant has had a [id number] encounter with this patient on the date of this order due to the diagnosis listed, which relates to the primary reason the patient requires home oxygen. Alternative treatments have been tried, or considered, and deemed ineffective. It is anticipated that supplemental oxygen will result in improvement with treatment. Home oxygen qualifying diagnosis: hypoxemia, asthma, cough, CHF, pleural effusions Home oxygen secondary diagnosis: s/p MVR/TVA SpO2 on room air (%): 87 Frequency of home oxygen needed: continuous Home oxygen liters per minute: 3 Home oxygen delivery device: nasal cannula Concentrator: Yes E-tanks for mobility and back up: Yes If ordering portable O2, is the patient mobile in the home?: Yes I certify that, based on these findings, the home oxygen is medically necessary for this patient for the following length of time. Length of time home oxygen needed: 1 month
[2017-02-07] MEDS ORDERED: DILTIAZEM CD 180 MG CAP PO SCH (09:00)
--- NOTE | 2017-02-07 09:10 | PDDCSUM ---
Discharge Summary Discharge Summary: ADMISSION DATE: 01/31/17 DISCHARGE DATE: 02/07/17 DISCHARGE DX: 1. Rheumatic mitral stenosis/regurgitation 2. Tricuspid regurgitation 3. Acute blood loss anemia 4. Thrombocytopenia 5. Type 2 diabetes 6. Permanent atrial fibrillation 7. Chronic class III diastolic CHF 8. Asthma 9. Bilateral pleural effusions PROCEDURES 01/31/17, Pradeep Dow: 1. MV replacement with #25 Magna bioprosthesis, TV annuloplasty with #30 Lane ring, AtriClip NICHOLE HOSPITAL COURSE BY PROBLEM LIST 1. Rheumatic mitral stenosis/regurgitation - s/p MVR. Thromboprophylaxis as per permanent atrial fibrillation. 2. Tricuspid regurgitation - s/p TVA. Management as per MVR. 3. Acute blood loss anemia - stable on discharge. 4. Thrombocytopenia - rebounding on discharge. 5. Type 2 diabetes - Metformin started with good BS control. 6. Permanent atrial fibrillation - adequate rate control with lower Cardizem dose. Coumadin continued for thromboprophylaxis. 7. Chronic class III diastolic CHF - optimized with diuretics. ACEi/ARB avoided d/t low blood pressure. 8. Asthma - home meds restarted. 9. Bilateral pleural effusions - s/p drainage. CONDITION Good DISPOSITION Home ACTIVITY Pt was instructed on sternal precautions, activity limitations, and which problems to call [facility] with. Please see Discharge Plan in chart for specifics. DISCHARGE MEDICATIONS 1. lbuterol Hfa Anes Only [Proair Hfa Icu (*)] 2 puffs IH QID PRN 2. Beclomethasone Qvar 80 [Qvar 80 (*)] 2 puffs IH BID 3. Furosemide [Lasix 40 MG (*)] 40 mg PO DAILY 12/31/16 4. Spironolactone [Aldactone 25 MG (*)] 25 mg PO DAILY 5. Warfarin Sodium [Coumadin 1MG (*)] 2 mg PO DAILY16 6. Aspirin [Aspirin 81mg (*)] 162 mg PO DAILY 7. Albuterol [Proventil Neb] 3 ml IH QID PRN 8. Multivitamins [Multivitamin (*)] 1 each PO DAILY 9. Acetaminophen [Tylenol 325mg (*)] 325 - 650 mg PO Q4HRS PRN 10. Atorvastatin Calcium [Lipitor 10 mg (*)] 10 mg PO HS 11. Diltiazem Cd [Cardizem ER Q24hr] 180 mg PO DAILY 12. metFORMIN HCL [Glucophage 500 mg (*)] 500 mg PO BIDMEAL 13. traMADol [Ultram 50 mg (*)] 50 mg PO Q4HRS PRN PENDING STUDIES/LABS 1. CXR prior to follow-up 2. INR at [facility] on 02/09/17 F/U APPOINTMENTS 1. Pradeep Dow - 02/10/17, 11:30 AM 2. [facility] - to be arranged at surgical follow-up
[2017-02-07] MEDS: metFORMIN HCL 500 MG TAB PO SCH (09:13)
[2017-02-07] MEDS: PANTOPRAZOLE SODIUM 40 MG TAB PO SCH (09:13)
[2017-02-07] MEDS: MULTIVITAMINS 1 EACH TAB PO SCH (09:13)
[2017-02-07] MEDS: ASPIRIN 81 MG CHEWABLE TAB PO SCH (09:13)
[2017-02-07] MEDS: FUROSEMIDE 40 MG TAB PO SCH (09:13)
[2017-02-07] MEDS: SPIRONOLACTONE 25 MG TAB PO SCH (09:13)
[2017-02-07] MEDS: ALBUTEROL 3 ML DEYVIAL IH SCH (09:46)
[2017-02-07] MEDS: BECLOMETHASONE QVAR 80 MDI IH SCH (09:46)
[2017-02-07] MEDS: INSULIN LISPRO 100 UNIT/ML SC SCH (10:14)
[2017-02-07 12:09] VITALS: BP 100/67; PULSE 110; RESP 18; TEMP 98.3; O2SAT 96
--- NOTE | 2017-02-07 16:09 | ASDISCHSUM ---
Discharge Information Plan Status:Home with No Needs Medically Cleared to Leave:02/06/2017 Discharge Date:02/07/2017 02:26 PM CM D/C Disposition:Home, Routine, Self-Care ADT D/C Disposition:Home, Routine, Self-Care Projected Discharge Date:02/07/2017 02:26 PM Transportation at D/C:Family Discharge Delay Reason: Follow-Up Date:02/07/2017 02:26 PM Discharge Slot: Final Diagnosis:CHF, Dual valve regurg, Afib, anticoagulation, Asthma Placement Information Patient Contact Information Contact Name:MAREK Relationship:Gavin Address:[address] [address] Work Phone: [facility]:[place] Alternate Phone: [facility]/Zip Code:[place] [address] Email: Financial Information Financial Class:Self-Pay Primary Plan Desc:[employer] Primary Plan Number:99 Secondary Plan Desc: Secondary Plan Number: Assessment Information [facility] CM Progress Note CM Note CM Note Notes: 71 year old female admitted with CHF, Mitral valve and tricuspid valve insuffciency, asthma. Patient went to surgery and had an MVR, TVR and a Maze. Therapies to eval, CM to follow for possible discharge needs. Date Signed: 01/31/2017 04:25 PM Electronically Signed By:Kath Kimball LCSW [facility] CM Progress Note CM Note CM Note Notes: Pt will most likely discharge independent w/ supportive family when medically stable. CM available for changes. Plan: Independent Date Signed: 02/03/2017 11:25 AM Electronically Signed By:NONI Koehler [facility] CM Progress Note CM Note CM Note Notes: Patient has [employer] ins. Unfortunately it only pays for hospital services. She will go home with family. Date Signed: 02/06/2017 03:39 PM Electronically Signed By:Kath Kimball LCSW LACE LACE Length of stay for Answers: 7-13 days current admission Acuity / Level of Care Answers: No. Comorbidities - select Answers: Previous myocardial all that apply infarction Congestive heart failure Emergency dept visits in Answers: 0 last 6 months Score: 8 Date Signed: 02/07/2017 11:26 AM Electronically Signed By:Flower Almaraz RN Case Management Discharge Plan Note Case Management Discharge Discharge Order Complete? Answers: Yes Patient to Obtain Answers: via Family Medications Transportation Arranged Answers: Family/Friends Family Notified Answers: Yes Discharge Comments Notes: Unable to arrange follow up services d/t pt insurance. Pt d/c to family with follow up as directed. Family to transport home. Date Signed: 02/07/2017 11:27 AM Electronically Signed By:Flower Almaraz RN Intervention Information
--- NOTE | 2017-02-09 13:22 | GPROG ---
[f rep st] PROGRESS NOTE POSTANESTHESIA CARE NOTE. This patient underwent an MVR and TVR with Dr. Dow on 01/31/2017. The patient was taken to the int ensive care unit intubated and sedated. The patient's pain was adequately controlled. The patient's nausea was adequately controlled. Vital signs were stable. There were no apparent complications fr om this anesthetic. /[id number]/MODL
--- NOTE | 2017-02-10 16:04 | PQFORM ---
PHYSICIAN QUERY FORM Needs Your Response This query form is being sent to you to assure this patient record is coded properly. Please respond to the question below: RIG BUILDER HELPER QUESTION: Dr. Dominguez, The diagnosis of Acute Hypoxic Respiratory Failure due to Volume Overload is documented in the Progress Note dated 02/04/2017. Would this be appropriate as an additional diagnosis on the discharge summary? Yes No Other Clinically Undetermined x Many thanks, Jessie Junior HIM/Coding Department INSTRUCTIONS FOR RESPONSE: Answer question by clicking on the "Edit Document" button. Move cursor to area below the stars. When complete, hit "Save." Click on the "Sign" button, then click "Sign" again. Type in your PIN and hit "Enter." MTDD
== END 2017-02-07 14:26 | disposition home or self-care (01) | DRG 220 ==
LOC: F2W 07:46 → F2N 10:38 → F2W 02-01 17:30
PROVIDERS: ADMIT Thoracic Surgery (Cardiothoracic Vascular Surgery); ATTEND Thoracic Surgery (Cardiothoracic Vascular Surgery)
PROC: 5A1221Z Performance of Cardiac Output, Continuous (ICD-10-PCS; principal; 2017-01-31 10:15)
PROC: B246ZZ4 Ultrasonography of Right and Left Heart, Transesophageal (ICD-10-PCS; principal; 2017-01-31 10:15)
PROC: 02L70CK Occlusion of Left Atrial Appendage with Extraluminal Device, Open Approach (ICD-10-PCS; principal; 2017-01-31 10:15)
PROC: 02RG0JZ Replacement of Mitral Valve with Synthetic Substitute, Open Approach (ICD-10-PCS; principal; 2017-01-31 10:15)
PROC: 02UJ0JZ Supplement Tricuspid Valve with Synthetic Substitute, Open Approach (ICD-10-PCS; principal; 2017-01-31 10:15)
PROC: 30233N1 Transfusion of Nonautologous Red Blood Cells into Peripheral Vein, Percutaneous Approach (ICD-10-PCS; 2017-01-31 10:15)
PROC: 0W993ZX Drainage of Right Pleural Cavity, Percutaneous Approach, Diagnostic (ICD-10-PCS; 2017-02-03)
PROC: BB4BZZZ Ultrasonography of Pleura (ICD-10-PCS; 2017-02-03)
PROC: BB4BZZZ Ultrasonography of Pleura (ICD-10-PCS; 2017-02-04)
PROC: 0W9B3ZX Drainage of Left Pleural Cavity, Percutaneous Approach, Diagnostic (ICD-10-PCS; 2017-02-04)
DX: I08.1 Rheumatic disorders of both mitral and tricuspid valves (principal); I50.32 Chronic diastolic (congestive) heart failure; D62 Acute posthemorrhagic anemia; J90 Pleural effusion, not elsewhere classified; E11.9 Type 2 diabetes mellitus without complications; I48.0 Paroxysmal atrial fibrillation; I11.0 Hypertensive heart disease with heart failure; J45.909 Unspecified asthma, uncomplicated; I25.10 Atherosclerotic heart disease of native coronary artery without angina pectoris; D69.6 Thrombocytopenia, unspecified; F03.90 Unspecified dementia, unspecified severity, without behavioral disturbance, psychotic disturbance, mood disturbance, and anxiety; Z79.01 Long term (current) use of anticoagulants; Z77.22 Contact with and (suspected) exposure to environmental tobacco smoke (acute) (chronic)
CPT/HCPCS: 82947-QW; 86022-90; 97116-GP; 97161-GP; 97165-GO; 97530-GO; 97530-GP; 97535-GO; J0153; J0282; J0690; J1265; J1644; J1815; J1885; J1940; J2001; J2150; J2250; J2260; J2370; J2405; J2704; J2720; J2765; J2930; J3010; J7060; P9016; P9041

== ENCOUNTER → 2017-02-09 | Outpatient (CLI) | payer OTHER | LOC: FIMAGING 18:09 | PROVIDERS: ATTEND Thoracic Surgery (Cardiothoracic Vascular Surgery) | DX: I51.7 Cardiomegaly (principal); J90 Pleural effusion, not elsewhere classified; J98.11 Atelectasis ==

== ENCOUNTER 2017-04-20 15:03 | Inpatient (IN) | payer MEDICAID, OTHER ==
--- NOTE | 2017-04-20 15:43 | CPEKG ---
Heart Rate: 107 RR Interval: 561 QRSD Interval: 74 QT Interval: 340 QTC Interval: 454 QRS [place]: -72 T Wave [place]: 23 EKG Severity - ABNORMAL ECG - EKG Impression: ATRIAL FIBRILLATION, V-RATE 82-144 EKG Impression: INFERIOR INFARCT, AGE INDETERMINATE Electronically Signed By: Altaf Fisher 21-Apr-2017 12:45:28
[2017-04-20] MEDS ORDERED: IPRATROPIUM/ALBUTEROL 3 ML DEYVIAL IH ONE (15:55)
[2017-04-20 16:05] LABS: PLATELET COUNT 163 10^3/uL (150-400)
--- NOTE | 2017-04-20 16:07 | EDPHY ---
General - History Smoking Status: Never smoked <Zeb Whiting - Last Filed: 04/21/17 17:02> <Prema Bose - Last Filed: 04/21/17 21:10> Time Seen by Provider: 04/20/17 15:50 Narrative: CHIEF COMPLAINT: Cough, shortness of breath HISTORY OF PRESENT ILLNESS: Patient presents with daughter at bedside. She complains of cough, shortness of breath, wheezing, chest pain. Symptoms started several days ago. They have been intermittent. They are worse when lying supine. Improves when on her oxygen. The chest pain that she describes seems to be related to her cough he says. She does have a productive cough. She denies any fever. She denies any lower extremity swelling today, but she did have swelling 2 days ago. No trauma or injury. She had mitral valve replacement on January 31, 2017. Daughter reports that she was not wearing her oxygen postoperatively for several weeks. She denies any neck pain or stiffness. She does have an occasional headache. No urinary complaints. No abdominal pain. No rashes or lesions. No other associated complaints or modifying factors. HPI obtained using the hospital's certified Frisian math instructor. REVIEW OF SYSTEMS: Ten systems reviewed and are negative unless otherwise noted in the HPI PCP: Dr. Logan SPECIALISTS: Dr. Dow PAST MEDICAL HISTORY: Diastolic heart failure, type 2 diabetes, Asthma, atrial fibrillation, hypertension, tricuspid regurg, mitral valve stenosis and regurgitation, PAST SURGICAL HISTORY: Mitral valve replacement, January 31, 2017 SOCIAL HISTORY: Never smoker. No alcohol or drug use. Lives at home with her daughter locally EXAMINATION General Appearance: Alert, no distress, frail Head: normocephalic, atraumatic Eyes: Pupils equal and round, no conjunctival pallor or injection ENT, Mouth: Mucous membranes moist. Uvula midline. Neck: Normal inspection, supple, non-tender Respiratory: Diffuse scattered expiratory rhonchi and wheezing. Mild crackles at the bases. No retractions or distress Cardiovascular: Irregularly irregular rate and rhythm. mild Systolic murmur. no harsh or mechanical murmur Abdominal: No distention or tympany. No guarding. Back: non-tender, no bony abnormalities Neurological: A&O, nonfocal, normal gait Skin: Warm and dry, no rash no petechiae or purpura Extremities: Nontender, no pedal edema Psychiatric: Mood and affect normal DIFFERENTIAL DIAGNOSES: Including but not limited to asthma exacerbation, CHF exacerbation, pneumonia, bronchitis, influenza MDM: 4:00 p.m. Respiratory complaints with multiple comorbidities including cardiac and respiratory. She does have diffuse wheezing. Mild crackles at the base. Vital signs reveal atrial fibrillation with variable rate. She is afebrile. She is resting comfortably at this time in no acute distress on her baseline 2 L nasal cannula. I have ordered laboratory studies, chest x-ray and influenza. EKG has been obtained and reveals atrial fibrillation with a rate of 107 beats per minute. I have discussed the patient Dr. Bose and she will evaluate the patient. 4:15 p.m. Patient has been evaluated Dr. Bose 4:40 p.m. Laboratory studies reveal elevated BNP. Troponin negative. INR is mildly subtherapeutic. Given the patient's presentation and examination, Dr. Bose and I agree the patient needs to be admitted to the hospital for further care. She will require some volume control, pulmonary toiletry. I will contact hospitalist for admission 5:15 p.m. Case discussed with hospitalist Dr. Desai. He will admit the patient to his service. She is admitted in stable condition. EKG interpretation: Dr. Bose SUPERVISION: Patient was evaluated and examined in conjunction with my secondary supervising physician as documented. We have both examined the patient. (Zeb Whiting) 0183: I evaluated and participated in the management of the patient. I also evaluated the patient independently. My co-signature indicates that I have reviewed this chart and I agree with the findings and plan of care as documented. My personal H&P findings include: 71 year old female with progressive shortness of breath for 1 month. Worse of the past several days with cough, SOB , audible wheezing and chest discomfort. Symptoms are worse when supine. No fever but a productive cough. Recently had a MVR on Jan 31, 2017 with pleural effusions requiring drainage afterwards. Patient does have a history of asthma and symptoms feel similar. On my exam she has posterior and anterior wheezing and an irregular tachycardic heart rate. She also has trace pitting edema in lower extremities. Denies chest pain. Albuterol neb treatment begun. Evaluation included EKG demonstrating afib with rate of 107. CXR without pneumonia. Troponin negative. Influenza negative. Slightly increased BNP. Admit for ongoing respiratory support, diuresis, rate control of afib if needed , and r/o ACS. (Prema Bose) - Objective Vital Signs: Initial Vital Signs Temperature (C) 36.7 C 04/20/17 15:04 Heart Rate 70 04/20/17 15:04 Respiratory Rate 20 04/20/17 15:04 Blood Pressure 112/73 04/20/17 15:04 O2 Sat (%) 89 L 04/20/17 15:04 O2 Delivery Mode Nasal Cannula O2 (L/minute) 2 Allergies/Adverse Reactions: No Known Allergies Allergy (Verified 04/20/17 15:04) Home Medications: Medication Instructions Recorded Beclomethasone Qvar 80 [Qvar 80 2 puffs IH BID 12/31/16 (*)] Spironolactone [Aldactone 25 MG 25 mg PO DAILY 12/31/16 (*)] Aspirin [Aspirin 81mg (*)] 162 mg PO DAILY 01/01/17 Albuterol [Proventil Neb] 3 ml IH QID PRN 01/28/17 Multivitamins [Multivitamin (*)] 1 each PO DAILY 01/28/17 Acetaminophen [Tylenol 325mg (*)] 325 - 650 mg PO Q4HRS PRN tab 02/07/17 Atorvastatin Calcium [Lipitor 10 10 mg PO HS #30 tab 02/07/17 mg (*)] metFORMIN HCL [Glucophage 500 mg 500 mg PO BIDMEAL #60 tab 02/07/17 (*)] Diltiazem HCl [Diltiazem 24Hr Cd] 240 mg PO DAILY 04/20/17 Furosemide [Lasix 20 MG (*)] 20 mg PO DAILY 04/20/17 Warfarin Sodium [Coumadin 2MG (*)] 2 mg PO DAILY16 04/20/17 Laboratory Results: Laboratory Results 04/20/17 15:35 04/20/17 15:35 Medications Given: Acetaminophen (Tylenol) 650 mg PO Q4HRS PRN PRN Reason: Pain, Mild/Fever, Can Take PO Stop: 10/17/17 18:16 Last Admin: 04/21/17 08:13 Dose: 650 mg Aspirin (Aspirin) 162 mg PO DAILY CARMEN Stop: 10/18/17 08:59 Last Admin: 04/21/17 08:33 Dose: 162 mg Atorvastatin Calcium (Lipitor) 10 mg PO HS CARMEN Stop: 10/17/17 20:59 Last Admin: 04/20/17 20:00 Dose: 10 mg Beclomethasone Dipropionate (Qvar 80) 2 puffs IH BID CARMEN Stop: 10/17/17 20:59 Last Admin: 04/21/17 10:40 Dose: Not Given Diltiazem HCl (Dilacor Xr) 240 mg PO DAILY CARMEN Stop: 10/18/17 08:59 Last Admin: 04/21/17 08:38 Dose: 240 mg Furosemide (Lasix) 20 mg PO DAILY CARMEN Stop: 10/18/17 08:59 Last Admin: 04/21/17 08:35 Dose: 20 mg Insulin Human Regular (Humulin R) 0 unit SC ACHS CARMEN PRN Reason: Protocol Stop: 10/18/17 17:29 Last Admin: 04/21/17 18:07 Dose: 4 units Ipratropium [place] (Atrovent Neb) 0.5 mg IH Q6HRS CARMEN Stop: 10/18/17 12:29 Last Admin: 04/21/17 16:18 Dose: 0.5 mg Levalbuterol (Xopenex 0.63mg Neb) 0.63 mg IH Q6HRS CARMEN Stop: 10/18/17 00:00 Last Admin: 04/21/17 16:18 Dose: 0.63 mg Metformin HCl (Glucophage) 500 mg PO BIDMEAL CARMEN Stop: 10/18/17 17:59 Last Admin: 04/21/17 18:07 Dose: 500 mg Metoprolol Tartrate (Lopressor) 12.5 mg PO BID CARMEN Stop: 10/18/17 14:44 Last Admin: 04/21/17 15:26 Dose: 12.5 mg Multivitamins (Tab-A-Noé) 1 each PO DAILY CARMEN Stop: 10/18/17 08:59 Last Admin: 04/21/17 08:33 Dose: 1 each Prednisone (Prednisone) 40 mg PO DAILY CARMEN Stop: 10/17/17 18:29 Last Admin: 04/21/17 08:36 Dose: 40 mg Spironolactone (Aldactone) 25 mg PO DAILY CARMEN Stop: 10/18/17 08:59 Last Admin: 04/21/17 08:34 Dose: 25 mg Warfarin Sodium (Coumadin) 2 mg PO DAILY16 CARMEN Stop: 10/18/17 15:59 Last Admin: 04/21/17 15:25 Dose: 2 mg Discontinued Medications Albuterol/Ipratropium (Duoneb) 3 ml IH EDNOW ONE Stop: 04/20/17 15:56 Last Admin: 04/20/17 16:09 Dose: 3 ml Departure <Zeb Whiting - Last Filed: 04/21/17 17:02> <Prema Bose - Last Filed: 04/21/17 21:10> - Departure Disposition: [facility] Inpatient Acute Clinical Impression: Acute exacerbation of congestive heart failure Qualifiers: Heart failure type: diastolic Qualified Code(s): I50.33 - Acute on chronic diastolic (congestive) heart failure Exacerbation of asthma Qualifiers: Asthma severity: mild Asthma persistence: intermittent Qualified Code(s): J45.21 - Mild intermittent asthma with (acute) exacerbation Condition: Good Report Scribed for: Prema Bose Report Scribed by: Haleigh Jack Date of Report: 04/20/17 Time of Report: 16:08 <Prema Bose - Last Filed: 04/21/17 21:10>
[2017-04-20 16:13] LABS: INR 1.98 (0.83-1.16); PROTIME(PATIENT) 22.6 SEC (12.0-15.0)
[2017-04-20] MEDS ORDERED: ONDANSETRON 4 MG/2 ML VIAL IVP PRN (18:17)
[2017-04-20] MEDS ORDERED: ONDANSETRON DISINTEGRATING 4 MG TAB PO PRN (18:17)
[2017-04-20] MEDS: predniSONE 20 MG TAB PO SCH (18:38)
--- NOTE | 2017-04-20 18:56 | GHP ---
[f rep st] HISTORY AND PHYSICAL DATE OF ADMISSION: 04/20/2017 HISTORY OF PRESENT ILLNESS: The patient is a pleasant 71-year-old female with a history of rheumatic heart disease. January 31 mitral valve replacement and tricuspid valve repair. She has done well as an outpatient. She also has a history of permanent atrial fibrillation. She returns today with increased work of breathing. She describes symptoms like a feeling as if her heart is racing. She h as also had wheezing. She has had a cough productive of first yellow, then clear sputum. She has wang d some chills with no fever. No one around her has been sick. She has had swelling in her legs that is less than prior to surgery. It feels similar to her prior asthma attacks. She also describes palpitations and irregular tachycardia that causes her some consternation. 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 She is uncertain of the reason. I suspect it is because of tachycard ia. REVIEW OF SYSTEMS: A complete 10-point review of systems conducted and negative except as noted in t he HPI. PAST MEDICAL HISTORY: 1. Rheumatic heart disease status post mitral valve replacement with bioprosthetic valve in January of 2017. 2. Tricuspid valve repair. 3. Asthma. 4. Permanent atrial fibrillation. 5. History of prior aortic valve replacement. 6. Hypertension. FAMILY HISTORY: Mother had heart disease. SOCIAL HISTORY: She lived here for about 6 months, prior to that lived in [place]. She lives wit h her daughter. No tobacco. No alcohol. She is Lithuanian-speaking only. ALLERGIES: No known drug allergies. HOME MEDICATIONS: Acetaminophen, albuterol, metformin, aspirin, atorvastatin, beclomethasone, diltia zem, furosemide, multivitamin, spironolactone, warfarin. PHYSICAL EXAMINATION: PRESENTING VITALS: Temp 36.7, blood pressure 112/73, pulse 70, breathing 20 t imes a minute, 89% on room air, 96 on 3 L. GENERAL: No acute distress. HEENT: Sclerae anicteric. Oropharynx clear. Mucous membranes moist. NECK: Supple without lymphadenopathy or JVD. LUNGS: C lear to auscultation bilaterally. The patient has reduced air movement with bilateral wheezing. The re are no crackles. HEART: S1, S2. ABDOMEN: Soft, nontender, nondistended. LOWER EXTREMITIES: T race edema bilaterally. Calves are nontender. SKIN: Without rash. NEUROLOGIC: Nonfocal. LABS: White count 7.2, hematocrit 41, which is improved from her postoperative. Platelets are 163. INR slightly subtherapeutic at 1.98. Sodium 139, potassium 4.3, chloride 99, bicarb 29, BUN 11, cre atinine 0.6, glucose 100. Troponin less than 0.012. BNP is 1270, it was 3270 during a preoperative admission. She is RSV negative. Influenza negative. Chest x-ray, interpreted by me. It shows evidence of prior cardiac disease, improvement in the pleur al effusions. No pneumonia. EKG, interpreted by me, shows atrial fibrillation at 107, left axis deviation, normal intervals. No ST or T-wave changes. I discussed the case with REJI Saldana of the emergency department. ASSESSMENT AND PLAN: A 71-year-old female, who presents with increased work of breathing and likely reactive airway disease exacerbation in response to a viral illness. 1. Reactive airway disease. I think the patient did not have heart failure by my examination. She has no JVD. Minimal lower extremity edema. Improved chest x-ray and BNP, lower than her previous ba tony. To that end, I will continue her regular diuretics. I will start her on prednisone 40 and X openex nebulizers and will continue her outpatient inhalers. She is RSV and influenza negative. I w ill not tish a further viral panel. 2. History of atrial fibrillation. We will continue anticoagulation. We will follow her rate on te lemetry while she is getting Xopenex. 3. History of valvular replacement surgery. She appears to be doing well with this regard as eviden wale by what is said above. 4. Prophylaxis therapeutically anticoagulated. 5. Diabetes. We will hold her metformin and follow. DISPOSITION: Observation status. /[id number]/MODL
[2017-04-20] MEDS: ATORVASTATIN CALCIUM 10 MG TAB PO SCH (20:00)
[2017-04-20] MEDS: BECLOMETHASONE QVAR 80 MDI IH SCH (20:59)
[2017-04-20] MEDS ORDERED: LEVALBUTEROL 0.63 MG/3 ML DEYVIAL ONE (21:09)
[2017-04-20] MEDS: LEVALBUTEROL 0.63 MG/3 ML DEYVIAL IH SCH (21:21)
[2017-04-21 04:47] LABS: INR 1.97 (0.83-1.16); PROTIME(PATIENT) 22.5 SEC (12.0-15.0)
[2017-04-21] MEDS: LEVALBUTEROL 0.63 MG/3 ML DEYVIAL IH SCH ×4 (05:49→23:13)
[2017-04-21] MEDS: ACETAMINOPHEN 325 MG TAB PO PRN (08:13)
[2017-04-21] MEDS: MULTIVITAMINS 1 EACH TAB PO SCH (08:33)
[2017-04-21] MEDS: ASPIRIN 81 MG CHEWABLE TAB PO SCH (08:33)
[2017-04-21] MEDS: SPIRONOLACTONE 25 MG TAB PO SCH (08:34)
[2017-04-21] MEDS: FUROSEMIDE 20 MG TAB PO SCH (08:35)
[2017-04-21] MEDS: predniSONE 20 MG TAB PO SCH (08:36)
[2017-04-21] MEDS: DILTIAZEM XR 240 MG CAP PO SCH (08:38)
[2017-04-21] MEDS ORDERED: NON-FORMULARY NEW DRUG (Diltiazem Hcl [Diltiazem 24hr Cd] 240 MG) PO SCH (09:00)
[2017-04-21] MEDS: BECLOMETHASONE QVAR 80 MDI IH SCH ×2 (10:40→21:11)
[2017-04-21] MEDS ORDERED: D50W 25 GM/50 ML SYR IVP PRN (11:40)
--- NOTE | 2017-04-21 13:31 | ASMTCASEMG ---
Living Arrangements What is your living Answers: With Other Relative(s) arrangement? Who do you live with? Type Of Residence What kind of residence do Answers: House you live in? Discharge Plan Comments Coordination Status Comments Notes: Pts case discussed in morning rounds. Pt is a 71 y/o female admitted for CHF exacerbation and shortness of breath. Pt is kiswahili speaking only. Pt had a mitral valve replacement and tricuspid valve repair on Jan [id number]. No therapies ordered at this time. Pt will most likely d/c independent when medically stable. Pt will not qualify for any outpatient services due to her [facility] express insurance. [place] will apply for emergency medicaid to cover this hospitalization. CM available for changes. Plan: Independent Date Signed: 04/21/2017 01:30 PM Electronically Signed By:NONI Koehler
--- NOTE | 2017-04-21 14:39 | HOSPPROG ---
Hospitalist Progress Note Assessment/Plan: * RAD exacerbation due to viral URI -prednisone, nebs * Chest pain - suspect MS due to cough -recent cardiac cath negative -on chronic anti-coag - makes PE less likely * Rapid afib -continue PO diltiazem -start low dose beta-lalito - selective beta-1 (metoprolol) given RAD -Xopenex instead of albuterol -chronic warfarin - continue * Recent MVR and TV repair * DM -resume metformin and watch with ISS while on prednisone Subjective: c/o pleuritic CP - doesn't feel like her heart - she thinks muscle strain due to coughing Objective: Vital Signs Temp Pulse Resp BP Pulse Ox 37.0 C 103 H 18 103/75 95 04/21/17 12:00 04/21/17 12:00 04/21/17 12:00 04/21/17 12:00 04/21/17 12:00 04/20/17 04/21/17 04/22/17 05:59 05:59 05:59 Intake Total 150 Output Total 1400 Balance -1250 PT 22.5 SEC (12.0-15.0) H 04/21/17 03:51 INR 1.97 (0.83-1.16) H 04/21/17 03:51 tele reviewed - rapid afib HR 135 Laboratory Tests 04/20/17 04/20/17 04/21/17 15:35 16:00 03:51 INR 1.97 H Troponin I < 0.012 NT-Pro-B Natriuret Pep 1270 H Nasal Influenza A PCR NEGATIVE FOR FLU A Nasal Influenza B PCR NEGATIVE FOR FLU B RSV (PCR) NEGATIVE FOR RSV CXR - no PNA, no CHF - Physical Exam Constitutional: no apparent distress, appears nourished, not in pain Cardiovascular: regular rate and rhythym, no murmur, rub, or gallop Respiratory: no respiratory distress, no rales or rhonchi, clear to auscultation Gastrointestinal: normoactive bowel sounds, soft, non-tender abdomen, no palpable masses Skin: no rashes or abrasions, no fluctuance, no induration Neurologic: AAOx3, sensation intact bilaterally Psychiatric: interacting appropriately, not anxious, not encephalopathic, thought process linear ICD10 Worksheet Patient Problems: Problems Problem Status Onset Acute exacerbation of congestive heart failure Acute Exacerbation of asthma Acute S/P mitral valve replacement with bioprosthetic valve Acute ~01/31/17 S/P tricuspid valve repair Acute ~01/31/17 Asthma Chronic Chronic anticoagulation Chronic Chronic diastolic congestive heart failure Chronic Diet-controlled diabetes mellitus Chronic Longstanding persistent atrial fibrillation Chronic 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
[2017-04-21] MEDS: IPRATROPIUM BROMIDE 0.5 MG/2.5 ML DEYVIAL IH SCH ×3 (14:42→23:13)
--- NOTE | 2017-04-21 15:13 | PDMN ---
Medical Necessity Medical necessity: ongoing monitoring and tx of afib RAD exacerbation in high risk pt with recent MVR and TV repair with DM. > 2 midnights
[2017-04-21] MEDS: METOPROLOL TARTRATE 25 MG TAB PO SCH ×2 (15:26→21:28)
[2017-04-21] MEDS ORDERED: WARFARIN SODIUM 2 MG TAB PO SCH (16:00)
[2017-04-21] MEDS: metFORMIN HCL 500 MG TAB PO SCH (18:07)
[2017-04-21] MEDS: INSULIN REGULAR HUMAN 100 UNIT/ML UNIT SC SCH ×2 (18:07→21:33)
[2017-04-21] MEDS: ATORVASTATIN CALCIUM 10 MG TAB PO SCH (21:28)
[2017-04-22 04:37] LABS: INR 1.81 (0.83-1.16); PROTIME(PATIENT) 21.1 SEC (12.0-15.0)
[2017-04-22] MEDS: IPRATROPIUM BROMIDE 0.5 MG/2.5 ML DEYVIAL IH SCH ×4 (05:41→22:14)
[2017-04-22] MEDS: LEVALBUTEROL 0.63 MG/3 ML DEYVIAL IH SCH ×4 (05:41→22:20)
[2017-04-22] MEDS: predniSONE 20 MG TAB PO SCH (08:31)
[2017-04-22] MEDS: metFORMIN HCL 500 MG TAB PO SCH ×2 (08:32→18:31)
[2017-04-22] MEDS: FUROSEMIDE 20 MG TAB PO SCH (08:32)
[2017-04-22] MEDS: SPIRONOLACTONE 25 MG TAB PO SCH (08:32)
[2017-04-22] MEDS: MULTIVITAMINS 1 EACH TAB PO SCH (08:33)
[2017-04-22] MEDS: DILTIAZEM XR 240 MG CAP PO SCH (08:33)
[2017-04-22] MEDS: METOPROLOL TARTRATE 25 MG TAB PO SCH (08:34)
[2017-04-22] MEDS: ASPIRIN 81 MG CHEWABLE TAB PO SCH (08:34)
[2017-04-22] MEDS: ACETAMINOPHEN 325 MG TAB PO PRN ×2 (08:42→21:10)
[2017-04-22] MEDS ORDERED: METOPROLOL TARTRATE 25 MG TAB PO ONE (08:56)
[2017-04-22] MEDS ORDERED: METOPROLOL TARTRATE 25 MG TAB PO SCH ×3 (08:56→21:00)
[2017-04-22] MEDS: INSULIN REGULAR HUMAN 100 UNIT/ML UNIT SC SCH ×4 (09:24→22:03)
[2017-04-22] MEDS: BECLOMETHASONE QVAR 80 MDI IH SCH ×2 (11:56→22:33)
--- NOTE | 2017-04-22 12:50 | PDCARPN ---
Cardiology Progress Note Chief Complaint: AF RVR Assessment/Plan: Assessment: 71 y/o F SSO with PMH RHD s/p bioMVR, TVA, Atriclip NICHOLE ligation 01/31/17, permanent AF, T2DM, nonobstructive CAD, asthma, presents for worsening shortness of breath. She reports having a cough present basically since January , following surgery. At her daughter's home, multiple family members with URI symptoms. 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 Jolie Cornell assists in interpretation. #. AF RVR: rate is improved will incease her Dilt dose first as she has been on higher doses prior to surgery #. DCHF: pt appears euvolemic will defer increasing diuretics #. RAD: per hospital medicine management pt will bring in home inhalers/neb treatments has stopped home neb treatments due to advice from [facility] surgery we discussed that we would adjust her cardiac meds so that she may be able to take a regimen that best controls her asthma Plan: Increase Dilt. Daughter to bring in home inhalers/nebs. 04/22/17 13:18 Subjective: + SOB, edema resolved with compressive stockings, 3 pillow orthopnea. Coughing worse in the last couple of days. With that, HR more elevated. Reviewed/Discussed With: hospitalist (Dr. Merida) Objective: Vital Signs (8 Hrs) Temp Pulse Resp BP Pulse Ox 04/22/17 11:48 97.9 F 103 H 15 99/69 L 97 04/22/17 10:37 100 97/68 L 04/22/17 10:27 97 16 95 04/22/17 08:00 97.9 F 119 H 19 131/78 H 96 04/22/17 05:40 104 H 16 98 Intake/Output (24 Hrs) 04/21/17 04/22/17 04/23/17 05:59 05:59 05:59 Intake Total 1370 Output Total 2600 Balance -1230 Intake: Oral (ml) 1370 Output: Urine (ml) 2600 Toilet 2600 Result Diagrams: 04/20/17 15:35 04/20/17 15:35 EKG: AF HR 107 Telemetry: reviewed Echocardiogram: [facility]CHO Summary [facility]: 02/05/17 03/01/2017 8:28 AM (GRILL.E): Normal size left ventricle. No LV hypertrophy. Cannot rule out wall motion abnormality due to poor endocardial resolution. Mildly to moderately reduced right ventricular function. The left atrium is severely dilated. No MR. MVR #25 CE Bioprothesis mean PG 5 mmHg, max PG 12 mmHg. Mild aortic cusp calcification. No AR. Mild TR. tva #30 MC3 ring present. EF: 76%. - Physical Exam Constitutional: no apparent distress, No obese Eyes: anicteric sclera Ears, Nose, Mouth, Throat: moist mucous membranes Cardiovascular: irregularly irregular Respiratory: reduced air movement, expiratory wheeze, bronchial breath sounds Gastrointestinal: normoactive bowel sounds, no tenderness Skin: no rashes, no abrasions Neurologic: AAOx3 Psychiatric: cooperative, interactive ICD10 Worksheet Patient Problems: Problems Problem Status Onset Acute exacerbation of congestive heart failure Acute Exacerbation of asthma Acute S/P mitral valve replacement with bioprosthetic valve Acute ~01/31/17 S/P tricuspid valve repair Acute ~01/31/17 Asthma Chronic Chronic anticoagulation Chronic Chronic diastolic congestive heart failure Chronic Diet-controlled diabetes mellitus Chronic Longstanding persistent atrial fibrillation Chronic 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
[2017-04-22] MEDS: guaiFENesin 600 MG TAB.ER PO SCH ×2 (13:26→21:10)
[2017-04-22] MEDS ORDERED: DILTIAZEM XR 240 MG CAP PO SCH (13:33)
--- NOTE | 2017-04-22 14:18 | HOSPPROG ---
Hospitalist Progress Note Assessment/Plan: * RAD exacerbation due to viral URI -prednisone, nebs * Chest pain - suspect MS due to cough -recent cardiac cath negative -on chronic anti-coag - makes PE less likely * Rapid afib -increase PO diltiazem -cardiology consulted -Xopenex instead of albuterol -chronic warfarin - continue * Recent MVR and TV repair * DM -resume metformin and watch with ISS while on prednisone Subjective: No complaints. Objective: Vital Signs Temp Pulse Resp BP Pulse Ox 36.6 C 103 H 15 99/69 L 97 04/22/17 11:48 04/22/17 11:48 04/22/17 11:48 04/22/17 11:48 04/22/17 11:48 Microbiology 04/21/17 15:53 Respiratory Panel (PCR) - Final Nasal, Sinus - Swab No Organism Detected 04/21/17 04/22/17 04/23/17 05:59 05:59 05:59 Intake Total 1370 Output Total 2600 Balance -1230 PT 21.1 SEC (12.0-15.0) H 04/22/17 03:38 INR 1.81 (0.83-1.16) H 04/22/17 03:38 tele reviewed - rapid afib - HR 135 this am d/w Irlanda Reynolds cardiology - cards to consult for afib control - Physical Exam Constitutional: no apparent distress, appears nourished, not in pain Cardiovascular: irregularly irregular, tachycardia, No JVD, No edema Respiratory: no respiratory distress, no rales or rhonchi, clear to auscultation Gastrointestinal: normoactive bowel sounds, soft, non-tender abdomen, no palpable masses Skin: no rashes or abrasions, no fluctuance, no induration Neurologic: AAOx3, sensation intact bilaterally Psychiatric: interacting appropriately, not anxious, not encephalopathic, thought process linear ICD10 Worksheet Patient Problems: Problems Problem Status Onset Acute exacerbation of congestive heart failure Acute Exacerbation of asthma Acute S/P mitral valve replacement with bioprosthetic valve Acute ~01/31/17 S/P tricuspid valve repair Acute ~01/31/17 Asthma Chronic Chronic anticoagulation Chronic Chronic diastolic congestive heart failure Chronic Diet-controlled diabetes mellitus Chronic Longstanding persistent atrial fibrillation Chronic 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
[2017-04-22] MEDS ORDERED: WARFARIN SODIUM 3 MG TAB PO ONE (16:00)
[2017-04-22] MEDS: ATORVASTATIN CALCIUM 10 MG TAB PO SCH (21:10)
[2017-04-23 04:36] LABS: INR 1.65 (0.83-1.16); PROTIME(PATIENT) 19.6 SEC (12.0-15.0)
[2017-04-23] MEDS: IPRATROPIUM BROMIDE 0.5 MG/2.5 ML DEYVIAL IH SCH ×4 (05:53→21:36)
[2017-04-23] MEDS: LEVALBUTEROL 0.63 MG/3 ML DEYVIAL IH SCH ×4 (05:53→21:36)
[2017-04-23] MEDS ORDERED: DILTIAZEM XR 240 MG CAP PO SCH (09:00)
[2017-04-23] MEDS: guaiFENesin 600 MG TAB.ER PO SCH ×2 (09:41→20:27)
[2017-04-23] MEDS: INSULIN REGULAR HUMAN 100 UNIT/ML UNIT SC SCH ×3 (09:41→18:15)
[2017-04-23] MEDS: FUROSEMIDE 20 MG TAB PO SCH (09:42)
[2017-04-23] MEDS: ASPIRIN 81 MG CHEWABLE TAB PO SCH (09:42)
[2017-04-23] MEDS: MULTIVITAMINS 1 EACH TAB PO SCH (09:42)
[2017-04-23] MEDS: SPIRONOLACTONE 25 MG TAB PO SCH (09:42)
[2017-04-23] MEDS: metFORMIN HCL 500 MG TAB PO SCH ×2 (09:43→18:16)
[2017-04-23] MEDS: predniSONE 20 MG TAB PO SCH (09:43)
--- NOTE | 2017-04-23 10:00 | PDCARPN ---
Cardiology Progress Note Chief Complaint: AF RVR in setting of asthma exacerbation Assessment/Plan: Assessment: 71 y/o F SSO with PMH RHD s/p bioMVR, TVA, Atriclip NICHOLE ligation 01/31/17, permanent AF, T2DM, nonobstructive CAD, asthma, presents for worsening shortness of breath. She reports having a cough present basically since January , following surgery. At her daughter's home, multiple family members with URI symptoms. 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 Tran assists in interpretation. #. AF RVR: rate is improved first day of increase Dilt CD to 300 will also add short-acting Dilt through day if BP tolerates this, potentially another long-acting dose can be added for BID dosing upon discharge #. DCHF: pt appears euvolemic will defer increasing diuretics #. RAD: per hospital medicine management pt had been using Albuterol nebs at home but stopped since her surgery we discussed potentially just once daily usage of Albuterol neb upon discharge and referral to pulmonology Plan: Increase Dilt with the addition of short acting doses through day. Change to BID dosing at discharge if BP tolerates. 04/23/17 09:53 Subjective: Breathing improved. Still coughing but air movement feels less labored. Objective: Vital Signs (8 Hrs) Temp Pulse Resp BP Pulse Ox 04/23/17 07:54 98.0 F 130 H 16 120/77 96 04/23/17 04:00 98.2 F 119 H 17 101/73 96 Intake/Output (24 Hrs) 04/22/17 04/23/17 04/24/17 05:59 05:59 05:59 Intake Total 1370 300 Output Total 2600 500 Balance -1230 -200 Intake: Oral (ml) 1370 300 Output: Urine (ml) 2600 500 Toilet 2600 500 Other: Intake Quantity Yes Sufficient Number of Voids Toilet 1 Result Diagrams: 04/20/17 15:35 04/20/17 15:35 Telemetry: AF RVR - Physical Exam Constitutional: no apparent distress Eyes: anicteric sclera Cardiovascular: irregularly irregular Respiratory: clear to auscultate bilat, reduced air movement, expiratory wheeze (L base) Skin: no rashes, no abrasions ICD10 Worksheet Patient Problems: Problems Problem Status Onset Acute exacerbation of congestive heart failure Acute Exacerbation of asthma Acute S/P mitral valve replacement with bioprosthetic valve Acute ~01/31/17 S/P tricuspid valve repair Acute ~01/31/17 Asthma Chronic Chronic anticoagulation Chronic Chronic diastolic congestive heart failure Chronic Diet-controlled diabetes mellitus Chronic Longstanding persistent atrial fibrillation Chronic 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
[2017-04-23] MEDS: DILTIAZEM CD 300 MG CAP PO SCH (10:10)
[2017-04-23] MEDS: DILTIAZEM 30 MG TAB PO SCH ×2 (11:40→20:28)
[2017-04-23] MEDS: BECLOMETHASONE QVAR 80 MDI IH SCH ×2 (12:16→21:37)
[2017-04-23] MEDS ORDERED: WARFARIN SODIUM 5 MG TAB PO ONE (16:00)
--- NOTE | 2017-04-23 16:06 | HOSPPROG ---
Hospitalist Progress Note Assessment/Plan: * RAD exacerbation due to viral URI -prednisone, nebs * Chest pain - suspect MS due to cough -recent cardiac cath negative -on chronic anti-coag - makes PE less likely * Rapid afib -increase PO diltiazem -Xopenex instead of albuterol -chronic warfarin - continue * Recent MVR and TV repair * DM -resume metformin and watch with ISS while on prednisone Subjective: No complaints. Objective: Vital Signs Temp Pulse Resp BP Pulse Ox 36.6 C 106 H 16 116/79 97 04/23/17 15:36 04/23/17 15:36 04/23/17 15:36 04/23/17 15:36 04/23/17 15:36 04/22/17 04/23/17 04/24/17 05:59 05:59 05:59 Intake Total 1370 300 150 Output Total 2600 500 Balance -1230 -200 150 PT 19.6 SEC (12.0-15.0) H 04/23/17 03:56 INR 1.65 (0.83-1.16) H 04/23/17 03:56 d/w Irlanda Reynolds regarding rate control plan - continue to increase diltiazem as needed tele reviewed - rapid afib - HR up to 160 - Physical Exam Constitutional: no apparent distress, appears nourished, not in pain Cardiovascular: regular rate and rhythym, no murmur, rub, or gallop, irregularly irregular, tachycardia, No edema Respiratory: no respiratory distress, no rales or rhonchi, clear to auscultation Gastrointestinal: normoactive bowel sounds, soft, non-tender abdomen, no palpable masses Skin: no rashes or abrasions, no fluctuance, no induration Neurologic: AAOx3, sensation intact bilaterally Psychiatric: interacting appropriately, not anxious, not encephalopathic, thought process linear ICD10 Worksheet Patient Problems: Problems Problem Status Onset Acute exacerbation of congestive heart failure Acute Exacerbation of asthma Acute S/P mitral valve replacement with bioprosthetic valve Acute ~01/31/17 S/P tricuspid valve repair Acute ~01/31/17 Asthma Chronic Chronic anticoagulation Chronic Chronic diastolic congestive heart failure Chronic Diet-controlled diabetes mellitus Chronic Longstanding persistent atrial fibrillation Chronic 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
[2017-04-23] MEDS: ATORVASTATIN CALCIUM 10 MG TAB PO SCH (20:27)
[2017-04-23] MEDS: BENZONATATE 100 MG CAP PO PRN (20:27)
[2017-04-24] MEDS: INSULIN REGULAR HUMAN 100 UNIT/ML UNIT SC SCH ×5 (01:26→21:37)
[2017-04-24] MEDS: BENZONATATE 100 MG CAP PO PRN ×2 (03:46→21:36)
[2017-04-24] MEDS: DILTIAZEM 30 MG TAB PO SCH (03:46)
[2017-04-24 04:11] LABS: PLATELET COUNT 158 10^3/uL (150-400)
[2017-04-24 04:21] LABS: INR 1.81 (0.83-1.16); PROTIME(PATIENT) 21.1 SEC (12.0-15.0)
[2017-04-24] MEDS: IPRATROPIUM BROMIDE 0.5 MG/2.5 ML DEYVIAL IH SCH ×4 (05:37→21:53)
[2017-04-24] MEDS: LEVALBUTEROL 0.63 MG/3 ML DEYVIAL IH SCH ×4 (05:37→21:53)
[2017-04-24] MEDS: SPIRONOLACTONE 25 MG TAB PO SCH (08:31)
[2017-04-24] MEDS: predniSONE 20 MG TAB PO SCH (08:31)
[2017-04-24] MEDS: FUROSEMIDE 20 MG TAB PO SCH (08:31)
[2017-04-24] MEDS: metFORMIN HCL 500 MG TAB PO SCH ×2 (08:31→18:22)
[2017-04-24] MEDS: ASPIRIN 81 MG CHEWABLE TAB PO SCH (08:31)
[2017-04-24] MEDS: guaiFENesin 600 MG TAB.ER PO SCH ×2 (08:31→21:36)
[2017-04-24] MEDS: MULTIVITAMINS 1 EACH TAB PO SCH (08:31)
[2017-04-24] MEDS: DILTIAZEM CD 300 MG CAP PO SCH (08:37)
--- NOTE | 2017-04-24 09:47 | SOAPPROG ---
SOAP Progress Note Assessment/Plan: Assessment/Plan: 71 yr old with s/p BioMVR, TVA, NICHOLE ligation who came with respiratory distress and cough. Pulmonary status appears to be improving. Rhonchii decreased and no significant rales noted. Air entry is better AF with RVR: will change to bid dosing of Dilt. Rate control is much better, likely related to improvement in respiratory status improvement CAD: Non obstructive 04/24/17 09:44 Subjective: Pt denies feeling racing of the heart. SHe is bringing up phlegm. Objective: Vital Signs Temp Pulse Resp BP Pulse Ox 36.8 C 111 H 12 113/75 97 04/24/17 07:24 04/24/17 07:24 04/24/17 07:24 04/24/17 07:24 04/24/17 07:24 Laboratory Results 04/24/17 03:45 04/24/17 03:45 04/23/17 04/24/17 04/25/17 05:59 05:59 05:59 Intake Total 300 1170 250 Output Total 500 Balance -200 1170 250 PT 21.1 SEC (12.0-15.0) H 04/24/17 03:45 INR 1.81 (0.83-1.16) H 04/24/17 03:45 Physical Exam - Physical Exam General Appearance: alert, mild distress, thin EENT: pharynx normal, No scleral icterus (R), No scleral icterus (L) Neck: non-tender, supple, No lymphadenopathy (R), No lymphadenopathy (L) Respiratory: normal breath sounds, No rhonchi Cardiac/Chest: irregularly irregular, No gallop, No systolic murmur Abdomen: non-tender, soft, No organomegaly ICD10 Worksheet Patient Problems: Problems Problem Status Onset Acute exacerbation of congestive heart failure Acute Exacerbation of asthma Acute S/P mitral valve replacement with bioprosthetic valve Acute ~01/31/17 S/P tricuspid valve repair Acute ~01/31/17 Asthma Chronic Chronic anticoagulation Chronic Chronic diastolic congestive heart failure Chronic Diet-controlled diabetes mellitus Chronic Longstanding persistent atrial fibrillation Chronic 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
[2017-04-24] MEDS: BECLOMETHASONE QVAR 80 MDI IH SCH ×2 (10:28→21:53)
--- NOTE | 2017-04-24 12:26 | ASMTCMCOM ---
CM Note CM Note Notes: 04/24/2017 Case Management Note Met w/pt during rounds today using the time cycle operator. Pt uses 2 L O2 at home at her baseline. Pt insurance is [facility]. An emergency medicaid application was started last week. There are no case management d/c needs identified d/t insurance coverage. Pt primary MD is Dr. Logan. Case Management d/c poc: home with follow up as directed. Case Management available if needs change. Date Signed: 04/24/2017 12:26 PM Electronically Signed By:Flower Almaraz RN
--- NOTE | 2017-04-24 13:13 | HOSPPROG ---
Hospitalist Progress Note Assessment/Plan: * RAD exacerbation due to viral URI -prednisone, nebs * Chest pain - suspect MS due to cough -recent cardiac cath negative -on chronic anti-coag - makes PE less likely * Rapid afib -increase PO diltiazem - now 240mg BID per Dr. Penn -Xopenex instead of albuterol -chronic warfarin - continue -bridge with Lovenox until INR therapeutic * Recent MVR and TV repair * DM -watch with ISS while on prednisone -metformin Subjective: No complaints, no palpitations Objective: Vital Signs Temp Pulse Resp BP Pulse Ox 37.2 C 101 H 12 108/71 94 04/24/17 11:41 04/24/17 11:41 04/24/17 11:41 04/24/17 11:41 04/24/17 11:41 Laboratory Results 04/24/17 03:45 04/24/17 03:45 04/23/17 04/24/17 04/25/17 05:59 05:59 05:59 Intake Total 300 1170 250 Output Total 500 Balance -200 1170 250 PT 21.1 SEC (12.0-15.0) H 04/24/17 03:45 INR 1.81 (0.83-1.16) H 04/24/17 03:45 d/w DR. Penn - continue to increase diltiazem tele reviewed - rapid afib - HR 140 this am - Physical Exam Constitutional: no apparent distress, appears nourished, not in pain Cardiovascular: irregularly irregular, tachycardia, No JVD, No edema Respiratory: no respiratory distress, no rales or rhonchi, clear to auscultation Gastrointestinal: normoactive bowel sounds, soft, non-tender abdomen, no palpable masses Skin: no rashes or abrasions, no fluctuance, no induration Neurologic: AAOx3, sensation intact bilaterally Psychiatric: interacting appropriately, not anxious, not encephalopathic, thought process linear ICD10 Worksheet Patient Problems: Problems Problem Status Onset Acute exacerbation of congestive heart failure Acute Exacerbation of asthma Acute S/P mitral valve replacement with bioprosthetic valve Acute ~01/31/17 S/P tricuspid valve repair Acute ~01/31/17 Asthma Chronic Chronic anticoagulation Chronic Chronic diastolic congestive heart failure Chronic Diet-controlled diabetes mellitus Chronic Longstanding persistent atrial fibrillation Chronic 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
[2017-04-24] MEDS: ENOXAPARIN 60 MG/0.6 ML SYR SC SCH ×2 (13:42→21:37)
[2017-04-24] MEDS ORDERED: WARFARIN SODIUM 5 MG TAB PO ONE (16:00)
[2017-04-24] MEDS: DILTIAZEM CD 120 MG CAP PO SCH (21:33)
[2017-04-24] MEDS: ACETAMINOPHEN 325 MG TAB PO PRN (21:36)
[2017-04-24] MEDS: ATORVASTATIN CALCIUM 10 MG TAB PO SCH (21:39)
[2017-04-25 04:53] LABS: INR 2.86 (0.83-1.16); PROTIME(PATIENT) 29.9 SEC (12.0-15.0)
[2017-04-25] MEDS: LEVALBUTEROL 0.63 MG/3 ML DEYVIAL IH SCH ×2 (05:54→11:37)
[2017-04-25] MEDS: IPRATROPIUM BROMIDE 0.5 MG/2.5 ML DEYVIAL IH SCH ×2 (05:54→11:37)
[2017-04-25] MEDS: BENZONATATE 100 MG CAP PO PRN ×2 (06:45→08:26)
[2017-04-25 07:10] VITALS: BP 121/80; TEMP 98.1
[2017-04-25] MEDS: DILTIAZEM CD 120 MG CAP PO SCH (08:25)
[2017-04-25] MEDS: MULTIVITAMINS 1 EACH TAB PO SCH (08:25)
[2017-04-25] MEDS: predniSONE 20 MG TAB PO SCH (08:25)
[2017-04-25] MEDS: ASPIRIN 81 MG CHEWABLE TAB PO SCH (08:25)
[2017-04-25] MEDS: SPIRONOLACTONE 25 MG TAB PO SCH (08:25)
[2017-04-25] MEDS: guaiFENesin 600 MG TAB.ER PO SCH (08:25)
[2017-04-25] MEDS: FUROSEMIDE 20 MG TAB PO SCH (08:25)
[2017-04-25] MEDS: metFORMIN HCL 500 MG TAB PO SCH (08:25)
[2017-04-25] MEDS: BECLOMETHASONE QVAR 80 MDI IH SCH (08:28)
[2017-04-25 08:34] VITALS: RESP 20; O2SAT 92
[2017-04-25] MEDS: INSULIN REGULAR HUMAN 100 UNIT/ML UNIT SC SCH (09:45)
--- NOTE | 2017-04-25 10:57 | HOSPPROG ---
Hospitalist Progress Note Assessment/Plan: * RAD exacerbation due to viral URI -prednisone, nebs improved on home 02 stop steroids * Chest pain - suspect MS due to cough -recent cardiac cath negative -on chronic anti-coag - makes PE less likely * Rapid afib -increase PO diltiazem - now 240mg BID per Dr. Penn -Xopenex instead of albuterol -chronic warfarin - continue -bridge with Lovenox until INR therapeutic * Recent MVR and TV repair * DM -watch with ISS while on prednisone -metformin dispo: home today > 30 minutes on dc Subjective: not wheezing. amenable to dc Objective: Vital Signs Temp Pulse Resp BP Pulse Ox 36.7 C 109 H 20 121/80 H 92 04/25/17 07:09 04/25/17 08:29 04/25/17 08:29 04/25/17 07:09 04/25/17 08:29 Laboratory Results 04/24/17 03:45 04/24/17 03:45 04/24/17 04/25/17 04/26/17 05:59 05:59 05:59 Intake Total 1170 1175 Output Total 100 175 Balance 1170 1075 -175 PT 29.9 SEC (12.0-15.0) H D 04/25/17 03:50 INR 2.86 (0.83-1.16) H 04/25/17 03:50 - Physical Exam Constitutional: no apparent distress, appears nourished Eyes: PERRL, anicteric sclera Ears, Nose, Mouth, Throat: moist mucous membranes, hearing normal Cardiovascular: regular rate and rhythym, no murmur, rub, or gallop, systolic murmur Respiratory: no respiratory distress, no rales or rhonchi Gastrointestinal: normoactive bowel sounds, soft, non-tender abdomen Genitourinary: no bladder fullness, No valladares in urethra Skin: warm, normal color Musculoskeletal: full muscle strength ICD10 Worksheet Patient Problems: Problems Problem Status Onset Acute exacerbation of congestive heart failure Acute Exacerbation of asthma Acute S/P mitral valve replacement with bioprosthetic valve Acute ~01/31/17 S/P tricuspid valve repair Acute ~01/31/17 Asthma Chronic Chronic anticoagulation Chronic Chronic diastolic congestive heart failure Chronic Diet-controlled diabetes mellitus Chronic Longstanding persistent atrial fibrillation Chronic 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
--- NOTE | 2017-04-25 11:17 | PDCARPN ---
Cardiology Progress Note Chief Complaint: Patient reports still feeling short of breath, but has improved. Continues to cough up phlegm. Assessment/Plan: Assessment: 71-year-old female with history of rheumatic heart disease , status post is mitral valve replacement (bioprosthetic), tricuspid valve repair and LA appendage ligation on 01/31/2017. She also has significant history of permanent AFib, hypertension, type 2 diabetes, nonobstructive CAD (based off of cardiac catheterization 01/04/2017). Remitted on 04/20/2017 increased shortness of breath , productive cough , reporting racing heart. Has been diagnosed and treated for upper respiratory infection, noted to be in rapid atrial fibrillation , with recent increase of her medication control. Most recent cardiac catheterization done on 01/04/2017 showing mild CAD without flow limitation , mild elevated pulmonary pressures with PA S had 33 mm Hg normal LV systolic function with EF estimated at 60%. Echocardiogram done on 02/05/2017 showing normal LV size, EF of 76% , RV size motion normal, [id number] reduced RV systolic function , she LA is severely dilated, RA was not well visualized, mitral valve prosthetic noting , due to call mean peak gradient of 5 mmHg, maximum BP rate is 12 mm always for multiple hours adverse 1.73 seconds. Mild TR. Patient was seen today with cake tester, heart rate appears to be better controlled on increased diltiazem dosage as Dr. Penn ordered yesterday, averaging between 89-110 BPM. Patient reports no palpitations. Denies of any chest pressure or pain, but reports continuation of mild shortness of breath, with productive cough of yellow sputum. SpO2 remained greater than 90% on 2 L nasal cannula. INR therapeutic at 2.86. Plan: 1. AFib with RVR: History of permanent atrial fibrillation , better rate control with increased diltiazem dosage. No changes at this time. More likely rate control will improve with improvement in her respiratory status. INR therapeutic , no change in warfarin therapy. 2. CAD: Noted to have no flow limiting disease, off of cardiac catheterization in December of 2016. Denies of chest pressure or symptoms suggesting of angina. Remains on anti-platelet therapy of aspirin. Has been started on atorvastatin for secondary risk prevention. 3. Valvular heart disease: Status post mitral valve replacement in tricuspid repair. Appears to be fairly euvolemic. Continue on current diuretic dose ( Aldactone and to Lasix). 4. Upper respiratory infection: Patient reporting improvements, continue with good pulmonary toilet, currently on prednisone. 5. Diabetes: on metformin , insulin sliding scale. Being followed by hospitalist services. 04/25/17 11:15 Subjective: Patient reports no further feeling rapid heart rate, denies of any chest pressure or pain. reports no orthopnea. Reviewed/Discussed With: family, other (Dr Razo) Objective: Vital Signs (8 Hrs) Temp Pulse Resp BP Pulse Ox 04/25/17 08:29 109 H 20 92 04/25/17 07:09 36.7 C 95 12 121/80 H 93 04/25/17 05:58 110 H 24 H 04/25/17 04:00 36.6 C 89 19 117/82 H 92 Intake/Output (24 Hrs) 04/24/17 04/25/17 04/26/17 05:59 05:59 05:59 Intake Total 1170 1175 Output Total 100 175 Balance 1170 1075 -175 Intake: Oral (ml) 1170 1175 Output: Urine (ml) 100 175 Toilet 100 175 Other: Weight 54.1 kg 53.8 kg Number of Voids Toilet 1 1 Number of Stools Toilet 1 Result Diagrams: 04/24/17 03:45 04/24/17 03:45 - Physical Exam Constitutional: no apparent distress Ears, Nose, Mouth, Throat: moist mucous membranes Cardiovascular: no rubs, no gallops, systolic murmur (1/6 left sternal border), irregularly irregular, pulses symmetric bilat, carotid bruit, No jugular vein distention Peripheral Pulses: 1+: dorsalis-pedis (R), dorsalis-pedis (L), 2+: carotid (R), carotid (L) Respiratory: other (Expiratory wheezes in upper lobes, diminished in bases, no rales noted. No accessory muscle use, no intercostal muscle retraction) Gastrointestinal: normoactive bowel sounds Skin: warm, No no edema (+1 peripheral edema bilateral lower extremities to knees) Neurologic: AAOx3 Psychiatric: cooperative, interactive, following commands ICD10 Worksheet Patient Problems: Problems Problem Status Onset Acute exacerbation of congestive heart failure Acute Exacerbation of asthma Acute S/P mitral valve replacement with bioprosthetic valve Acute ~01/31/17 S/P tricuspid valve repair Acute ~01/31/17 Asthma Chronic Chronic anticoagulation Chronic Chronic diastolic congestive heart failure Chronic Diet-controlled diabetes mellitus Chronic Longstanding persistent atrial fibrillation Chronic 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
--- NOTE | 2017-04-25 11:35 | ASMTLACE ---
JOVANNYE Length of stay for Answers: 3 days current admission Acuity / Level of Answers: No Care: Did the patient have an inpatient admission? Comorbidities - select Answers: Congestive heart failure all that apply Other Notes: rheumatic heart disease, permanent atri al fibrillation, hypertens ion # of Emergency department Answers: 1-2 visits in the last 6 months Social determinants Answers: Lack of community resources and/or lack of social support (no pcp, lives alone, transportation, gavi d) Score: 11 Date Signed: 04/25/2017 11:34 AM Electronically Signed By:Floewr Almaraz RN
[2017-04-25 11:43] VITALS: PULSE 72
[2017-04-25] MEDS ORDERED: WARFARIN SODIUM 2 MG TAB PO SCH (16:00)
--- NOTE | 2017-04-25 16:40 | ASDISCHSUM ---
Discharge Information Plan Status:Home with No Needs Medically Cleared to Leave:04/24/2017 Discharge Date:04/25/2017 01:00 PM CM D/C Disposition:Home, Routine, Self-Care ADT D/C Disposition:Home, Routine, Self-Care Projected Discharge Date:04/25/2017 01:00 PM Transportation at D/C:Family Discharge Delay Reason: Follow-Up Date:04/25/2017 01:00 PM Discharge Slot: Final Diagnosis: Placement Information Patient Contact Information Contact Name:MAREK Relationship:Gavin Address:[address] [place] [address] Work Phone: [facility] Alternate Phone: [facility]/Zip Code:[place] [address] Email: Financial Information Financial Class:Self-Pay Primary Plan Desc:WE CARE Primary Plan Number:99 Secondary Plan Desc: Secondary Plan Number: Assessment Information LACE LACE Length of stay for Answers: 3 days current admission Acuity / Level of Answers: No Care: Did the patient have an inpatient admission? Comorbidities - select Answers: Congestive heart failure all that apply Other Notes: rheumatic heart disease, permanent atri al fibrillation, hypertens ion # of Emergency department Answers: 1-2 visits in the last 6 months Social determinants Answers: Lack of community resources and/or lack of social support (no pcp, lives alone, transportation, gavi d) Score: 11 Date Signed: 04/25/2017 11:34 AM Electronically Signed By:Flower Almaraz RN [facility] Initial CM Assessment Living Arrangements What is your living Answers: With Other Relative(s) arrangement? Who do you live with? Type Of Residence What kind of residence do Answers: House you live in? Discharge Plan Comments Coordination Status Comments Notes: Pts case discussed in morning rounds. Pt is a 71 y/o female admitted for CHF exacerbation and shortness of breath. Pt is gibraltarian speaking only. Pt had a mitral valve replacement and tricuspid valve repair on Jan [id number]. No therapies ordered at this time. Pt will most likely d/c independent when medically stable. Pt will not qualify for any outpatient services due to her we care insurance. b-datum will apply for emergency medicaid to cover this hospitalization. CM available for changes. Plan: Independent Date Signed: 04/21/2017 01:30 PM Electronically Signed By:NONI Koehler [facility] Progress Note CM Note CM Note Notes: 04/24/2017 Case Management Note Met w/pt during rounds today using the conference interpreter. Pt uses 2 L O2 at home at her baseline. Pt insurance is [employer]. An emergency medicaid application was started last week. There are no case management d/c needs identified d/t insurance coverage. Pt primary MD is Dr. Logan. Case Management d/c poc: home with follow up as directed. Case Management available if needs change. Date Signed: 04/24/2017 12:26 PM Electronically Signed By:Flower Almaraz RN Case Management Discharge Plan Note Case Management Discharge Discharge Order Complete? Answers: Yes Patient to Obtain Answers: via Family Medications Transportation Arranged Answers: Family/Friends Family Notified Answers: Yes Discharge Comments Notes: 04/25/2017 Case Management Note Pt to d/c independent with follow up as directed d/t limited insurance coverage. Family to transport pt home. Date Signed: 04/25/2017 04:39 PM Electronically Signed By:Flower Almaraz RN Intervention Information
--- NOTE | 2017-04-26 09:28 | GDS ---
[f rep st] DISCHARGE SUMMARY DISCHARGE DIAGNOSES: 1. Upper respiratory viral infection with bronchospasm. 2. Chronic hypoxemic respiratory failure. 3. History of rheumatic heart disease with bioprosthetic mitral valve in 2017, and tricuspid repair in 2017. 4. Permanent atrial fibrillation. HOSPITAL COURSE: Please see admission history and physical by Dr. Sage Desai. The patient prese nted with increased work of breathing. She was not clinically in heart failure. She was followed by Cardiology and Hospital Medicine while here. She has received a burst of steroids and nebulizer, pa rticularly Xopenex, given her history of tachycardic response to beta agonist. She is negative for i nfluenza and RSV. She had no infiltrate on chest x-ray. She did not receive antibiotics. She is di scharged home with home oxygen, Xopenex and Tessalon Perles. ADDENDUM: The patient was seen by Cardiology, and diltiazem was increased from 240 once daily to 240 twice daily with better control of her rate. /[id number]/MODL
== END 2017-04-25 13:00 | disposition home or self-care (01) | DRG 202 ==
LOC: INTOOBSV 17:14 → F2W 17:55 → OBSVTOIN 04-21 15:13
PROVIDERS: ADMIT Internal Medicine; ATTEND Internal Medicine
DX: J45.901 Unspecified asthma with (acute) exacerbation (principal); J06.9 Acute upper respiratory infection, unspecified; J96.11 Chronic respiratory failure with hypoxia; I50.32 Chronic diastolic (congestive) heart failure; I08.1 Rheumatic disorders of both mitral and tricuspid valves; I48.2 Chronic atrial fibrillation; R07.89 Other chest pain; E11.9 Type 2 diabetes mellitus without complications; I25.10 Atherosclerotic heart disease of native coronary artery without angina pectoris; I11.0 Hypertensive heart disease with heart failure; Z79.01 Long term (current) use of anticoagulants; Z79.51 Long term (current) use of inhaled steroids; Z79.84 Long term (current) use of oral hypoglycemic drugs; Z82.49 Family history of ischemic heart disease and other diseases of the circulatory system; Z95.2 Presence of prosthetic heart valve
CPT/HCPCS: 97161-GP; 97165-GO; G0378; J1650; J1815; J7512

== ENCOUNTER 2018-01-30 16:19 | Inpatient (IN) | payer MEDICAID, OTHER ==
[2018-01-30] MEDS ORDERED: DILTIAZEM 25 MG/5 ML VIAL IVP ONE ×2 (16:44→16:47)
[2018-01-30] MEDS ORDERED: NS 500 ML IV ONE (16:45)
[2018-01-30] MEDS ORDERED: methylPREDNISolone SOD SUCC 125 MG/2 ML VIAL IVP ONE (16:46)
[2018-01-30] MEDS ORDERED: LEVALBUTEROL 0.63 MG/3 ML DEYVIAL ONE (16:46)
[2018-01-30] MEDS ORDERED: DILTIAZEM 125 MG in D5W 125 ML IV ONE (16:47)
[2018-01-30] MEDS ORDERED: LEVALBUTEROL 0.63 MG/3 ML DEYVIAL IH ONE (16:49)
[2018-01-30 16:53] LABS: PLATELET COUNT 169 10^3/uL (150-400)
--- NOTE | 2018-01-30 16:54 | EDPHY ---
H & P Time Seen by Provider: 01/30/18 16:41 HPI/ROS: CHIEF COMPLAINT: Shortness of breath, chest pain HISTORY OF PRESENT ILLNESS: The patient is a 72 year old female with a history rheumatic heart disease, status post mitral valve replacement, tricuspid valve repair and LA appendage ligation in 2017, the atrial fibrillation and asthma who presents emergency department with shortness of breath and chest pain. Patient states she has had increasing shortness of breath over the past day. She attempted to take her nebulizer which helped slightly. She has mild left- sided chest discomfort. It does not radiate. She has had no recent fevers or chills. She has had a [id number], nonproductive cough. No leg pain or swelling. The patient felt as though her symptoms started as a asthma exacerbation. REVIEW OF SYSTEMS: 10 systems were reveiwed and are negative with the exception of the elements mentioned in the history of present illness. Past Medical/Surgical History: Includes asthma, rheumatic heart disease, hypertension, diabetes, coronary artery disease, atrial fibrillation Past surgical history: Includes mitral valve replacement, tricuspid valve repair, LA appendage ligation Social history: Patient does not smoke Smoking Status: Never smoked Physical Exam: Vitals noted. Tachycardia into the 170s. Systolic blood pressure 105. GENERAL: Moderate acute distress, alert. HEENT: Eyes normal to inspection, normal pharynx, no signs of dehydration. NECK: Normal, supple. RESPIRATORY: Increased work of breathing. Diffuse scattered wheezing. CVS: Tachycardia and fairly regular, no rubs, murmurs, or gallops. ABDOMEN: Soft, nontender, nondistended, no organomegaly. BACK: Normal to inspection, no CVA tenderness. SKIN: Normal color, no rash, warm, dry. No pallor. EXTREMITIES: No pedal edema, no calf tenderness, no Homans sign or cords, no joint swelling. NEURO/PSYCH: Alert and oriented, normal mood and affect, normal motor sensory exam. No obvious cranial nerve deficit. Constitutional: Initial Vital Signs Temperature (C) 36.6 C 01/30/18 16:32 Heart Rate 170 H 01/30/18 16:32 Respiratory Rate 22 H 01/30/18 16:32 Blood Pressure 118/93 H 01/30/18 16:32 O2 Sat (%) 70 L 01/30/18 16:32 O2 Delivery Mode Nasal Cannula O2 (L/minute) 5 Allergies/Adverse Reactions: No Known Allergies Allergy (Verified 01/30/18 16:32) Home Medications: Medication Instructions Recorded Beclomethasone Qvar 80 [Qvar 80] 2 puffs IH BID 12/31/16 Spironolactone [Aldactone 25 MG 25 mg PO DAILY 12/31/16 (*)] Aspirin [Aspirin 81mg (*)] 162 mg PO DAILY 01/01/17 Albuterol [Proventil Neb] 3 ml IH QID PRN 01/28/17 Multivitamins [Multivitamin (*)] 1 each PO DAILY 01/28/17 Acetaminophen [Tylenol 325mg (*)] 325 - 650 mg PO Q4HRS PRN tab 02/07/17 Atorvastatin Calcium [Lipitor 10 10 mg PO HS #30 tab 02/07/17 mg (*)] metFORMIN HCL [Glucophage 500 mg 500 mg PO BIDMEAL #60 tab 02/07/17 (*)] Furosemide [Lasix 20 MG (*)] 20 mg PO DAILY 04/20/17 Warfarin Sodium [Coumadin 2MG (*)] 2 mg PO DAILY16 04/20/17 Albuterol [Ventolin Hfa Inhaler] 1 puffs IH PRN PRN 04/21/17 Diltiazem HCl [Diltiazem 24Hr Cd] 240 mg PO BID #60 cap.er.24h 04/25/17 Levalbuterol Tartrate [Xopenex Hfa] 15 gm IH Q6 PRN #1 hfa.aer.ad 04/25/17 Medical Decision Making - Diagnostics Imaging Results: Imaging Impressions Chest X-Ray 01/30/18 16:45 Impression: 1. Moderate cardiomegaly with some dependent edema suspected at the lung bases. Consider mild fluid overload.. ED Course/Re-evaluation: In the emergency department I met the patient on arrival. A metal bonder was used. The patient feels as though this started as an asthma exacerbation. She slightly improved after taking 1 of her nebulized treatments. The patient was given Xopenex nebulizer. This was chosen due to her tachycardia. The patient was given Solu-Medrol 125 mg IV. Chest x-ray, EKG and laboratory studies were ordered. I-STAT chemistry unremarkable EKG: Atrial fibrillation at 193. Upon reviewing the EKG and the patient's history the patient was given diltiazem 10 mg IV and started on a diltiazem drip. I informed patient of the plan a care. I rechecked the patient she states she is feeling much better. She still has scattered wheezing on exam. Decreased work of breathing. Patient's INR is 3.24. PTT is 30.1. PTT 32.9. D-dimer 0.50. Troponin is negative. CBC and chemistry unremarkable. I discussed results with the patient. I answered all of her questions. I discussed the case with Dr. Merlos who will admit. 1730: Heart rate is 146. Blood pressure 126/68. The patient states her breathing is improved. Differential Diagnosis: My differential includes but not limited to asthma exacerbation, bronchitis, viral illness, pneumonia, ACS, acute GA, atrial fibrillation with rapid ventricular response, dysrhythmia Critical Care Time: Patient required 35 min of critical care time. This was exclusive of any unbundled procedure. This was due the patient's respiratory distress, atrial rib fibrillation with RVR. Patient required time at the bedside, Lao interpretation, diltiazem bolus and drip. - Data Points Laboratory Results: Laboratory Results 01/30/18 16:43 01/30/18 16:43 01/30/18 01/30/18 01/30/18 16:49 16:46 16:43 WBC RBC Hgb POC Hgb 16.0 gm/dL gm/dL (12.6-16.3) Hct POC Hct 47 % % (38-47) MCV MCH MCHC RDW Plt Count MPV Neut % (Auto) Lymph % (Auto) [place] % (Auto) Eos % (Auto) Baso % (Auto) Nucleat RBC Rel Count Absolute Neuts (auto) Absolute Lymphs (auto) Absolute Monos (auto) Absolute Eos (auto) Absolute Basos (auto) Absolute Nucleated RBC Immature Gran % Immature Gran # RBC/WBC/PLT Morphology Platelet Estimate PT INR APTT D-Dimer POC Sodium 143 mEq/L mEq/L (135-145) Sodium 139 mEq/L mEq/L (135-145) POC Potassium 4.4 mEq/L mEq/L (3.3-5.0) Potassium 4.4 mEq/L mEq/L (3.3-5.0) POC Chloride 103 mEq/L mEq/L (97-110) Chloride 103 mEq/L mEq/L (97-110) Carbon Dioxide 28 mEq/l mEq/l (22-31) Anion Gap 8 mEq/L mEq/L (6-14) POC BUN 15 mg/dL mg/dL (7-23) BUN 14 mg/dL mg/dL (7-23) Creatinine 0.8 mg/dL mg/dL (0.6-1.0) POC Creatinine 0.8 mg/dL mg/dL (0.6-1.0) Estimated GFR > 60 Glucose 131 mg/dL H mg/dL (70-100) POC Glucose 135 mg/dL H mg/dL (70-100) Calcium 9.9 mg/dL mg/dL (8.5-10.4) Total Bilirubin 0.6 mg/dL mg/dL (0.1-1.4) Conjugated Bilirubin 0.2 mg/dL mg/dL (0.0-0.5) Unconjugated Bilirubin 0.4 mg/dL mg/dL (0.0-1.1) AST 35 IU/L IU/L (14-46) ALT 25 IU/L IU/L (9-52) Alkaline Phosphatase 94 IU/L IU/L (38-126) POC Troponin I 0.00 ng/mL ng/mL (0.00-0.08) NT-Pro-B Natriuret Pep Pending Total Protein 7.4 g/dL g/dL (6.3-8.2) Albumin 4.6 g/dL g/dL (3.5-5.0) Lipase 22 IU/L L IU/L (23-300) 01/30/18 01/30/18 16:43 16:43 WBC 8.72 10^3/uL 10^3/uL (3.80-9.50) RBC 4.61 10^6/uL 10^6/uL (4.18-5.33) Hgb 14.7 g/dL g/dL (12.6-16.3) POC Hgb Hct 46.0 % % (38.0-47.0) POC Hct MCV 99.8 fL fL (81.5-99.8) MCH 31.9 pg pg (27.9-34.1) MCHC 32.0 g/dL L g/dL (32.4-36.7) RDW 13.2 % % (11.5-15.2) Plt Count 169 10^3/uL 10^3/uL (150-400) MPV 10.1 fL fL (8.7-11.7) Neut % (Auto) 43.0 % % (39.3-74.2) Lymph % (Auto) 24.7 % % (15.0-45.0) [place] % (Auto) 8.1 % % (4.5-13.0) Eos % (Auto) 23.5 % H % (0.6-7.6) Baso % (Auto) 0.5 % % (0.3-1.7) Nucleat RBC Rel Count 0.0 % % (0.0-0.2) Absolute Neuts (auto) 3.75 10^3/uL 10^3/uL (1.70-6.50) Absolute Lymphs (auto) 2.15 10^3/uL 10^3/uL (1.00-3.00) Absolute Monos (auto) 0.71 10^3/uL 10^3/uL (0.30-0.80) Absolute Eos (auto) 2.05 10^3/uL H 10^3/uL (0.03-0.40) Absolute Basos (auto) 0.04 10^3/uL 10^3/uL (0.02-0.10) Absolute Nucleated RBC 0.00 10^3/uL 10^3/uL (0-0.01) Immature Gran % 0.2 % % (0.0-1.1) Immature Gran # 0.02 10^3/uL 10^3/uL (0.00-0.10) RBC/WBC/PLT Morphology TNP Platelet Estimate TNP PT 32.9 SEC H SEC (12.0-15.0) INR 3.24 H (0.83-1.16) APTT 38.1 SEC H SEC (23.0-38.0) D-Dimer 0.50 ug/mLFEU ug/mLFEU (0.00-0.50) POC Sodium Sodium POC Potassium Potassium POC Chloride Chloride Carbon Dioxide Anion Gap POC BUN BUN Creatinine POC Creatinine Estimated GFR Glucose POC Glucose Calcium Total Bilirubin Conjugated Bilirubin Unconjugated Bilirubin AST ALT Alkaline Phosphatase POC Troponin I NT-Pro-B Natriuret Pep Total Protein Albumin Lipase Medications Given: Discontinued Medications Diltiazem HCl (Cardizem 25 Mg/5 Ml Vial) 10 mg IVP EDNOW ONE Stop: 01/30/18 16:48 Last Admin: 01/30/18 16:52 Dose: 10 mg Sodium Chloride (Ns) 500 mls @ 1,000 mls/hr IV EDNOW ONE PRN Reason: Protocol Stop: 01/30/18 17:14 Last Admin: 01/30/18 16:51 Dose: 500 mls Diltiazem/Dextrose (Diltiazem 125mg/125ml (Premix)) 125 mls @ 0 mls/hr IV EDNOW ONE; Titrate PRN Reason: Protocol Stop: 01/30/18 17:01 Last Admin: 01/30/18 17:05 Dose: 125 mls Levalbuterol (Xopenex 0.63mg Neb) 0.63 mg IH EDNOW ONE Stop: 01/30/18 16:50 Last Admin: 01/30/18 16:51 Dose: 0.63 mg Methylprednisolone Sodium Succinate (Solu-Medrol) 125 mg IVP EDNOW ONE Stop: 01/30/18 16:47 Last Admin: 01/30/18 16:52 Dose: 125 mg Point of Care Test Results: Chemistry 01/30/18 01/30/18 16:49 16:46 POC Sodium 143 mEq/L mEq/L (135-145) POC Potassium 4.4 mEq/L mEq/L (3.3-5.0) POC Chloride 103 mEq/L mEq/L (97-110) POC BUN 15 mg/dL mg/dL (7-23) POC Creatinine 0.8 mg/dL mg/dL (0.6-1.0) POC Glucose 135 mg/dL H mg/dL (70-100) POC Troponin I 0.00 ng/mL ng/mL (0.00-0.08) ISTAT H&H 01/30/18 16:49 POC Hgb 16.0 gm/dL gm/dL (12.6-16.3) POC Hct 47 % % (38-47) Departure - Departure Disposition: [facility] Inpatient Acute Clinical Impression: Atrial fibrillation with RVR Chest pain Qualifiers: Chest pain type: unspecified Qualified Code(s): R07.9 - Chest pain, unspecified Atrial fibrillation Qualifiers: Atrial fibrillation type: chronic Qualified Code(s): I48.2 - Chronic atrial fibrillation Condition: Fair Referrals: Yovany Logan MD [Primary Care Provider] - As per Instructions
[2018-01-30] MEDS ORDERED: DILTIAZEM HCL/D5W 125 ML IV ONE (17:00)
[2018-01-30 17:12] LABS: INR 3.24 (0.83-1.16); PROTIME(PATIENT) 32.9 SEC (12.0-15.0)
[2018-01-30] MEDS ORDERED: ACETAMINOPHEN 325 MG TAB PO PRN (18:27)
[2018-01-30] MEDS ORDERED: PROMETHAZINE HCL 25 MG/ML INJ IVP PRN (18:27)
[2018-01-30] MEDS ORDERED: ONDANSETRON 4 MG/2 ML VIAL IVP PRN (18:27)
[2018-01-30] MEDS ORDERED: ALBUTEROL 3 ML DEYVIAL IH PRN (18:27)
[2018-01-30] MEDS ORDERED: ONDANSETRON DISINTEGRATING 4 MG TAB PO PRN (18:27)
[2018-01-30] MEDS ORDERED: HYDROmorphONE/DILAUDID 1 MG/ML INJ IVP PRN (18:27)
[2018-01-30] MEDS ORDERED: HYDROCODONE/APAP 5/325 TAB PO PRN (18:27)
[2018-01-30] MEDS ORDERED: DILTIAZEM 125 MG in D5W 125 ML IV SCH (18:45)
--- NOTE | 2018-01-30 19:55 | CPEKG ---
Test Reason : OPEN Blood Pressure : / mmHG Vent. Rate : 193 BPM Atrial Rate : 203 BPM P-R Int : 077 ms QRS Dur : 083 ms QT Int : 275 ms P-R-T Axes : 243 027 051 degrees QTc Int : 493 ms Atrial fibrillation with rapid V-rate Confirmed by Daniela Marquez ([id number]) on 01/30/2018 7:54:49 PM Referred By: Confirmed By:Daniela Marquez
--- NOTE | 2018-01-30 20:49 | PDGENHP ---
History and Physical - Chief Complaint chest pain/sob - History of Present Illness 72 yo F with PMH that includes VHD, CAD and chronic diastolic heart failure as well as asthma and DM2 presenting with several days of sob and chest pain. She notes that since getting breathing treatments in ER her SOB has improved and her chest pain has resolved completely. She notes that the pain was dull and substernal, did not seem to have any alleviating or exacerbating factors. She has permanent a fib and notes that she does not always have sxs when she is in a fib. She has some chronic intermittent lower extremity swelling which is not changed. She has had non productive cough, no fever or chills. She has no other associated sxs such as n/v/d. She did see her PCP who gave her neb treatments and recommended she come to ER for further evaluation. History Information - Allergies/Home Medication List Allergies/Adverse Reactions: No Known Allergies Allergy (Verified 01/30/18 16:32) Home Medications: Beclomethasone Qvar 80 [Qvar 80] 2 puffs IH BID 12/31/16 [Last Taken 01/30/18 07 :00] Spironolactone [Aldactone 25 MG (*)] 25 mg PO DAILY 12/31/16 [Last Taken ] Aspirin [Aspirin 81mg (*)] 81 mg PO DAILY 01/01/17 [Last Taken 01/30/18] Albuterol [Proventil Neb] 3 ml IH QID PRN 01/28/17 [Last Taken 01/30/18 2 DOSES] Furosemide [Lasix 20 MG (*)] 20 mg PO DAILY 04/20/17 [Last Taken 01/30/18] Warfarin Sodium [Coumadin 2MG (*)] 2 mg PO DAILY16 04/20/17 [Last Taken 01/30/18 ] Albuterol [Ventolin Hfa Inhaler] 1 puffs IH PRN PRN 04/21/17 [Last Taken Unknown ] Atorvastatin Calcium [Lipitor 10 mg (*)] 10 mg PO DAILY 01/30/18 [Last Taken 05/15] Diltiazem HCl [Diltiazem 24Hr Cd] 240 mg PO DAILY 01/30/18 [Last Taken 01/30/18] I have personally reviewed and updated: family history, medical history, social history, surgical history - Past Medical History atrial fibrillation (permanent), asthma, CHF (diastolic), diabetes type 2, hypertension, hyperlipidemia Additional medical history: Valvular heart disease: rheumatic dx with MV replacecment, TV repair and aortic valve repair - Surgical History Additional surgical history: MV replacement, TV repair, Aortic valve repair - Family History Positive for: non-pertinent - Social History Smoking Status: Never smoked Alcohol Use: None Drug Use: None Additional social history: recently moved here from [place], lives with daughter and granddaughter Review of Systems Review of Systems: ROS: 10pt was reviewed & negative except for what was stated in HPI & below Physical Exam Physical Exam: Temp Pulse Resp BP Pulse Ox 36.9 C 133 H 22 H 123/81 H 95 01/30/18 20:00 01/30/18 20:00 01/30/18 20:00 01/30/18 20:00 01/30/18 20:00 O2 (L/minute) 4 Constitutional: no apparent distress, not in pain, chronically ill appearing Eyes: PERRL, anicteric sclera Ears, Nose, Mouth, Throat: moist mucous membranes, hearing normal, ears appear normal Cardiovascular: irregularly irregular, tachycardia, edema Respiratory: no respiratory distress, reduced air movement, expiratory wheeze Gastrointestinal: normoactive bowel sounds, soft, non-tender abdomen Genitourinary: no bladder tenderness Skin: warm, normal color Musculoskeletal: full muscle strength, no muscle tenderness Neurologic: AAOx3 Psychiatric: interacting appropriately, not anxious, not encephalopathic Lab Data & Imaging Review 01/30/18 16:43 01/30/18 16:43 WBC 8.72 10^3/uL (3.80-9.50) 01/30/18 16:43 RBC 4.61 10^6/uL (4.18-5.33) 01/30/18 16:43 Hgb 14.7 g/dL (12.6-16.3) 01/30/18 16:43 POC Hgb 16.0 gm/dL (12.6-16.3) 01/30/18 16:49 Hct 46.0 % (38.0-47.0) 01/30/18 16:43 POC Hct 47 % (38-47) 01/30/18 16:49 MCV 99.8 fL (81.5-99.8) 01/30/18 16:43 MCH 31.9 pg (27.9-34.1) 01/30/18 16:43 MCHC 32.0 g/dL (32.4-36.7) L 01/30/18 16:43 RDW 13.2 % (11.5-15.2) 01/30/18 16:43 Plt Count 169 10^3/uL (150-400) 01/30/18 16:43 MPV 10.1 fL (8.7-11.7) 01/30/18 16:43 Neut % (Auto) 43.0 % (39.3-74.2) 01/30/18 16:43 Lymph % (Auto) 24.7 % (15.0-45.0) 01/30/18 16:43 Elk % (Auto) 8.1 % (4.5-13.0) 01/30/18 16:43 Eos % (Auto) 23.5 % (0.6-7.6) H 01/30/18 16:43 Baso % (Auto) 0.5 % (0.3-1.7) 01/30/18 16:43 Nucleat RBC Rel Count 0.0 % (0.0-0.2) 01/30/18 16:43 Absolute Neuts (auto) 3.75 10^3/uL (1.70-6.50) 01/30/18 16:43 Absolute Lymphs (auto) 2.15 10^3/uL (1.00-3.00) 01/30/18 16:43 Absolute Monos (auto) 0.71 10^3/uL (0.30-0.80) 01/30/18 16:43 Absolute Eos (auto) 2.05 10^3/uL (0.03-0.40) H 01/30/18 16:43 Absolute Basos (auto) 0.04 10^3/uL (0.02-0.10) 01/30/18 16:43 Absolute Nucleated RBC 0.00 10^3/uL (0-0.01) 01/30/18 16:43 Immature Gran % 0.2 % (0.0-1.1) 01/30/18 16:43 Immature Gran # 0.02 10^3/uL (0.00-0.10) 01/30/18 16:43 RBC/WBC/PLT Morphology TNP 01/30/18 16:43 Platelet Estimate TNP 01/30/18 16:43 PT 32.9 SEC (12.0-15.0) H 01/30/18 16:43 INR 3.24 (0.83-1.16) H 01/30/18 16:43 APTT 38.1 SEC (23.0-38.0) H 01/30/18 16:43 D-Dimer 0.50 ug/mLFEU (0.00-0.50) 01/30/18 16:43 POC Sodium 143 mEq/L (135-145) 01/30/18 16:49 Sodium 139 mEq/L (135-145) 01/30/18 16:43 POC Potassium 4.4 mEq/L (3.3-5.0) 01/30/18 16:49 Potassium 4.4 mEq/L (3.3-5.0) 01/30/18 16:43 POC Chloride 103 mEq/L (97-110) 01/30/18 16:49 Chloride 103 mEq/L (97-110) 01/30/18 16:43 Carbon Dioxide 28 mEq/l (22-31) 01/30/18 16:43 Anion Gap 8 mEq/L (6-14) 01/30/18 16:43 POC BUN 15 mg/dL (7-23) 01/30/18 16:49 BUN 14 mg/dL (7-23) 01/30/18 16:43 Creatinine 0.8 mg/dL (0.6-1.0) 01/30/18 16:43 POC Creatinine 0.8 mg/dL (0.6-1.0) 01/30/18 16:49 Estimated GFR > 60 01/30/18 16:43 Glucose 131 mg/dL (70-100) H 01/30/18 16:43 POC Glucose 135 mg/dL (70-100) H 01/30/18 16:49 Calcium 9.9 mg/dL (8.5-10.4) 01/30/18 16:43 Total Bilirubin 0.6 mg/dL (0.1-1.4) 01/30/18 16:43 Conjugated Bilirubin 0.2 mg/dL (0.0-0.5) 01/30/18 16:43 Unconjugated Bilirubin 0.4 mg/dL (0.0-1.1) 01/30/18 16:43 AST 35 IU/L (14-46) 01/30/18 16:43 ALT 25 IU/L (9-52) 01/30/18 16:43 Alkaline Phosphatase 94 IU/L (38-126) 01/30/18 16:43 POC Troponin I 0.00 ng/mL (0.00-0.08) 01/30/18 16:46 NT-Pro-B Natriuret Pep 2150 pg/mL (0-125) H 01/30/18 16:43 Total Protein 7.4 g/dL (6.3-8.2) 01/30/18 16:43 Albumin 4.6 g/dL (3.5-5.0) 01/30/18 16:43 Lipase 22 IU/L (23-300) L 01/30/18 16:43 Visualized and Interpreted Chest x-ray results: Yes Chest X-Ray results: other (CM, dependent edema) Visualized and Interpreted EKG results: Yes EKG additional interpertation: a fib w/rvr rate in 170s Assessment & Plan Assessment: Atrial fibrillation (Acute) Atrial fibrillation with RVR (Acute) Chest pain (Acute) 72 yo F with hx of VHD, a fib, asthma presenting with sob, RAD exacerbation and likely acute on chronic chf # acute on chronic hypoxic respiratory failure: presenting with o2 sats of 70% on RA improved on 4-5L of o2 and now in mid 90s, at baseline on 2L of oxygen only at night. Suspect this is multifactorial and related to RAD exacerbation as well as decompensated chf as next. # acute on chronic diastolic chf: with pulmonary edema and bilateral lower extremity edema noted in the setting of afib w/rvr, BNP 2000 with prior baseline at 1000. will get echo in am, started on lasix and cardiology consulted , monitor i/o's and daily weights, trending trops/ecg/tele # a fib w/rvr: patient with hx of permanent a fib presenting with afib in the 170s, she is chronically anticoagulated with warfarin, started on dilt gtt, monitoring on tele, echo in am as above, cards consulted # RAD with acute exacerbation: no e/o pna on cxr, resp PCR negative, will continue nebs, has gotten IV steroids in ER and will start oral prednisone in am , has symptomatically improved already but consider repeat cxr in am if not continuing to improve # VHD: with recent mitral valve replacement and TV annuloplasty by Victor M and prior aortic valve repair, has a hx of rheumatic heart disease, echo in am as above # DM2: will start SSI # HTN: BP currently on the slightly low end, will continue home meds # IP status, will require > 48 hours stay given multiple active issues as above Care plan reviewed with ER doctor. History obtained with help of Honey Blender present at bedside. Old records reviewed and summarized as above.
[2018-01-30] MEDS ORDERED: FUROSEMIDE 20 MG/2 ML VIAL IVP ONE (20:55)
[2018-01-30] MEDS: IPRATROPIUM/ALBUTEROL 3 ML DEYVIAL IH SCH (21:07)
[2018-01-31 04:29] LABS: PLATELET COUNT 132 10^3/uL (150-400)
[2018-01-31 04:48] LABS: INR 2.87 (0.83-1.16)
[2018-01-31] MEDS: IPRATROPIUM/ALBUTEROL 3 ML DEYVIAL IH SCH ×4 (06:09→17:27)
[2018-01-31] MEDS: DILTIAZEM XR 240 MG CAP PO SCH (09:21)
[2018-01-31] MEDS: predniSONE 20 MG TAB PO SCH (09:21)
[2018-01-31] MEDS: FUROSEMIDE 20 MG/2 ML VIAL IVP SCH ×2 (09:21→17:06)
[2018-01-31] MEDS: ATORVASTATIN CALCIUM 10 MG TAB PO SCH (09:21)
[2018-01-31] MEDS: ASPIRIN 81 MG CHEWABLE TAB PO SCH (09:21)
[2018-01-31] MEDS: SPIRONOLACTONE 25 MG TAB PO SCH (09:22)
[2018-01-31] MEDS: BECLOMETHASONE QVAR 80 REDIHALER 120 INH/10.6 GM MDI IH SCH ×2 (10:26→21:35)
--- NOTE | 2018-01-31 12:23 | CPEKG ---
Test Reason : OPEN Blood Pressure : / mmHG Vent. Rate : 095 BPM Atrial Rate : 194 BPM P-R Int : 180 ms QRS Dur : 083 ms QT Int : 352 ms P-R-T Axes : 125 057 -01 degrees QTc Int : 443 ms Atrial fibrillation Ventricular premature complex Borderline T abnormalities, anterior leads Confirmed by Marshall Razo ([id number]) on 01/31/2018 12:23:09 PM Referred By: Confirmed By:Marshall Razo
--- NOTE | 2018-01-31 12:34 | ASMTCMCOM ---
CM Note CM Note Notes: Spoke with pt via machine slat basket maker during rounds. Pt admitted for Afib with RVR with respiratory distress. Pt still experiencing RVR with exertion. Pt lives with daughter and granddaughter and is a pt at [facility]. Pt has [facility] care. [facility] contacted to enroll pt in emergency Medicaid for this hospitalization. PT and OT evaluation pending. Pt will not be eligible for home care except out of pocket. D/C needs TBD, likely home independently. D/C Plan: Independent with dtr and granddtr. Date Signed: 01/31/2018 12:33 PM Electronically Signed By:Josey Lopez
--- NOTE | 2018-01-31 12:52 | PDMN ---
Medical Necessity Medical necessity: MCG: M190 heart failure A-2 days pt presents with SOB RA sats 70's%, 4-5L O2 92% baseline at night is 2L., bilat. LE edema noted with pulm edema. afib with rvr- rates in 170's, , BNP 1999, RAD acute exacerbation PMHx: , VHD with MV replacement and TV annuloplasty , DM2, HTN, anticipate > 2 MN ongoing med nec care for above.
--- NOTE | 2018-01-31 14:25 | ECHO ---
[email or web address] [address] [address] Main: [phone] Fax: Transthoracic Echocardiogram Name: CORNEL BARNETT MR#: [id number] Study Date: 01/31/2018 Study Time: 08:25 AM Date of : 1945 Age: 72 year(s) Height: 157.5 cm (62 in.) Weight: 58.51 kg (129 lb.) BSA: 1.59 m2 Gender: Female Examination: Echo Indication: CP/SOB, CHF exacerbation Image Quality: Contrast: Requested by: Mary Merlos BP: 101 mmHg/73 mmHg Heart Rate: Rhythm: Atrial fibrillation Indication: CP/SOB, CHF exacerbation Procedure Staff Fish Butcher: Lars Pizano RDCS Reading Physician: Pietro Dugan MD Requesting Provider: Conclusions: Normal size left ventricle. No LV hypertrophy. Normal global systolic LV function. EF is 61 %. The rhythm is atrial fibrillation and varied from 80bpm to 140bpm during exam.. The left atrium is severely dilated. The right atrium is moderately dilated. MVR #25 CE Magna Bioprosthesis. the Mean PG of the MV is 6 mmHg in atrial fibrillation.. Minimal aortic cusp calcification is noted. There is no significant aortic valve regurgitation. There is no aortic valve regurgitation. TVA #30 MC3 ring present. . The pulmonic valve is normal in appearance and function. No pericardial effusion. In comparison to prior echocardiogram from January of last year the mitral valve mean PG was 5 mm Hg (and is now 6 mm Hg) Measurements: Chambers Valvular Assessment AV/MV Valvular Assessment TV/PV Normal Normal Normal Name Value Range Name Value Range Name Value Range Ao Kelli (MM): 3.0 cm (2.2 cm-3.7 AV Vmax: 1.72 m/s (1 m/s-1.7 TR Vmax: 2.61 mm/s ( - ) cm) m/s) TR PGmax: 27 mmHg ( - ) IVSd (2D): 0.7 cm (0.6 cm-1.1 AV maxP mmHg ( - ) syst. PAP: 32 mmHg ( - ) cm) LVOT Vmax: 0.69 m/s (0.7 m/s-1.1 LVDd (2D): 4.8 cm (3.9 cm-5.3 m/s) cm) MV E Vmax: 1.86 m/s ( - ) LVDs (2D): 3.2 cm (2.1 cm-4 MV meanP mmHg ( - ) cm) MV PHT: 0.117 s ( - ) LVPWd (2D): 0.8 cm ( - ) MVA (PHT): 1.9 s ( - ) Patient: CORNEL BARNETT Study Date: 01/31/2018 Page 1 of 2 08:25 AM LVEF (2D): 61 (>=54 %) Continued Measurements: Chambers Valvular Assessment AV/MV Valvular Assessment TV/PV Name Value Name Value Name Value LADs: 5.9 cm MV DecTime: 222 m/s CVP (est.): 5 mmHg LADs Lon.0 cm MV VTI: 46.90 cm LA Area: 33.8 cm2 LA Volume: 124 ml LA Volume Index: 78.0 ml/m2 Findings: Left Ventricle: Normal size left ventricle. No LV hypertrophy. Normal global systolic LV function. EF is 61 %. No regional wall motion abnormality. Unable to assess diastolic dysfunction. The rhythm is atrial fibrillation and varied from 80bpm to 140bpm during exam.. Right Ventricle: Normal size right ventricle. Normal RV function. Left Atrium: The left atrium is severely dilated. Right Atrium: The right atrium is moderately dilated. Mitral Valve: A bioprothetic mitral valve is in place. MVR #25 CE Magna Bioprosthesis. the Mean PG of the MV is 6 mmHg in atrial fibrillation.. Aortic Valve: Minimal aortic cusp calcification is noted. There is no significant aortic valve regurgitation. There is no aortic valve regurgitation. No aortic valve stenosis is present. Tricuspid Valve: There is a tricuspid valve ring. TVA #30 MC3 ring present. . Pulmonic Valve: The pulmonic valve is normal in appearance and function. Aorta: The aorta is normal. Pericardium: No pericardial effusion. (No Signature Object) Patient: CORNEL BARNETT Study Date: 01/31/2018 Page 2 of 2 08:25 AM [id number]
[2018-01-31] MEDS: WARFARIN SODIUM 2 MG TAB PO SCH (17:07)
--- NOTE | 2018-01-31 17:07 | HOSPPROG ---
Hospitalist Progress Note Assessment/Plan: 72 yo F with hx of VHD, a fib, asthma presenting with dyspnea and hypoxemia found to be in rapid afib. This is my first encounter with the patient. 1. Acute on chronic hypoxemic respiratory insufficiency: Improved, on 2-3L. Multifactorial from pulm edema, RAD exacerbation. - Mgmt per below, wean O2 as able 2. Atrial fibrillation w/RVR: Rates better but still labile. Likely driven by airways disease - Keep on dilt gtt until lung issues better, cont home PO dilt as well - Anticoagulated with warfarin 3. Acute exacerbation of RAD: Still wheezy - CXR neg, resp PCR neg - Pred 40mg qd, nebs PRN 4. Acute on chronic diastolic CHF: - BNP a bit up and mild pulm edema - TTE without drastic change from prior - Continue IV diuresis, monitor I/Os 5. VHD: MV bioprosthetic replacement (h/o rheumatic heart disease), TV annuloplasty recently with Victor M, prior AV repair. TTE with stable gradients. 6. DM2: SSI, regular BG checks. 7. HTN: Home meds VTE ppx: therapeutic anticoagulation Dispo: Remain inpatient for IV diuresis, mgmt of pulm issues as above Subjective: Feeling much better. Still on dilt gtt with labile rates. Objective: Vital Signs Temp Pulse Resp BP Pulse Ox 36.6 C 87 24 H 101/59 L 100 01/31/18 16:00 01/31/18 16:32 01/31/18 16:32 01/31/18 16:00 01/31/18 16:32 Laboratory Results 01/31/18 03:40 01/31/18 03:40 01/30/18 01/31/18 02/01/18 05:59 05:59 05:59 Intake Total 400 Output Total 1000 150 Balance -600 -150 PT 30.0 SEC (12.0-15.0) H 01/31/18 03:40 INR 2.87 (0.83-1.16) H 01/31/18 03:40 - Physical Exam Constitutional: no apparent distress, appears nourished, not in pain Eyes: PERRL, anicteric sclera, EOMI Ears, Nose, Mouth, Throat: moist mucous membranes, hearing normal, ears appear normal, no oral mucosal ulcers Cardiovascular: irregularly irregular, tachycardia, edema (mild), No JVD Respiratory: no respiratory distress, reduced air movement, expiratory wheeze ( bilateral) Gastrointestinal: normoactive bowel sounds, soft, non-tender abdomen, no palpable masses Genitourinary: no bladder fullness, no bladder tenderness, no renal bruits Skin: no rashes or abrasions, no fluctuance, no induration, other Musculoskeletal: full muscle strength, no muscle tenderness, normal joint ROM Neurologic: AAOx3, sensation intact bilaterally Psychiatric: interacting appropriately, not anxious, not encephalopathic, thought process linear ICD10 Worksheet Patient Problems: Problems Problem Status Onset Atrial fibrillation Acute Atrial fibrillation with RVR Acute Chest pain Acute Acute exacerbation of congestive heart failure Acute Exacerbation of asthma Acute S/P mitral valve replacement with bioprosthetic valve Acute ~01/31/17 S/P tricuspid valve repair Acute ~01/31/17 Asthma Chronic Chronic anticoagulation Chronic Chronic diastolic congestive heart failure Chronic Diet-controlled diabetes mellitus Chronic Longstanding persistent atrial fibrillation Chronic 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
[2018-01-31] MEDS ORDERED: DILTIAZEM HCL/D5W 125 ML IV SCH (23:00)
[2018-02-01] MEDS: IPRATROPIUM/ALBUTEROL 3 ML DEYVIAL IH SCH (00:40)
[2018-02-01 06:16] LABS: INR 2.99 (0.83-1.16); PROTIME(PATIENT) 30.9 SEC (12.0-15.0)
[2018-02-01] MEDS: ATORVASTATIN CALCIUM 10 MG TAB PO SCH (08:15)
[2018-02-01] MEDS: DILTIAZEM XR 240 MG CAP PO SCH (08:15)
[2018-02-01] MEDS: ASPIRIN 81 MG CHEWABLE TAB PO SCH (08:15)
[2018-02-01] MEDS: predniSONE 20 MG TAB PO SCH (08:16)
[2018-02-01] MEDS: SPIRONOLACTONE 25 MG TAB PO SCH (08:16)
[2018-02-01] MEDS: FUROSEMIDE 20 MG/2 ML VIAL IVP SCH (08:17)
[2018-02-01] MEDS: BECLOMETHASONE QVAR 80 REDIHALER 120 INH/10.6 GM MDI IH SCH ×2 (10:18→21:02)
[2018-02-01] MEDS ORDERED: DILTIAZEM CD 120 MG CAP PO ONE (12:00)
[2018-02-01] MEDS: DILTIAZEM 30 MG TAB PO SCH ×2 (13:06→16:54)
[2018-02-01] MEDS ORDERED: WARFARIN SODIUM 1 MG TAB PO ONE (16:00)
--- NOTE | 2018-02-01 16:43 | HOSPPROG ---
Hospitalist Progress Note Assessment/Plan: 72 yo F with hx of VHD, a fib, asthma presenting with dyspnea and hypoxemia found to be in rapid afib. 1. Acute on chronic hypoxemic respiratory insufficiency: Continues to improve. Multifactorial from pulm edema, RAD exacerbation. - Mgmt per below, wean O2 as able 2. Atrial fibrillation w/RVR: Rates better. Likely driven by airways disease - Give additional dilt 30mg PO this afternoon and evening - Increase tomorrow long-acting dilt from 240 to 300mg - Wean dilt gtt, goal HR<110 - Anticoagulated with warfarin 3. Acute exacerbation of RAD: Still wheezy but better - CXR neg, resp PCR neg - Pred 40mg qd, nebs PRN 4. TD: New. Suspect she is dry - Stop diuresis, liberalize PO intake, recheck in AM 5. Acute on chronic diastolic CHF: Improved - BNP a bit up and mild pulm edema - TTE without drastic change from prior - Holding diuresis 6. Thrombocytopenia: Plts dropped since admit. This is relatively chronic. No bleeding. 7. VHD: MV bioprosthetic replacement (h/o rheumatic heart disease), TV annuloplasty recently with Victor M, prior AV repair. TTE with stable gradients. 8. DM2: SSI, regular BG checks. 9. HTN: Home meds VTE ppx: therapeutic anticoagulation Dispo: Remain inpatient until rates controlled off dilt gtt, resp status improved. Anticipated date of discharge in next few days. Subjective: Overall better. Still with some "tightness" with her breathing. Leg swelling improved. Stable cough, non-productive. No fevers. Objective: Vital Signs Temp Pulse Resp BP Pulse Ox 36.5 C 90 12 106/83 H 95 02/01/18 15:17 02/01/18 15:17 02/01/18 15:17 02/01/18 15:17 02/01/18 15:17 Laboratory Results 02/01/18 03:20 02/01/18 03:20 01/31/18 02/01/18 02/02/18 05:59 05:59 05:59 Intake Total 400 885 Output Total 1000 850 Balance -600 35 PT 30.9 SEC (12.0-15.0) H 02/01/18 05:41 INR 2.99 (0.83-1.16) H 02/01/18 05:41 - Physical Exam Constitutional: no apparent distress, appears nourished, not in pain Eyes: PERRL, anicteric sclera, EOMI Ears, Nose, Mouth, Throat: moist mucous membranes, hearing normal, ears appear normal, no oral mucosal ulcers Cardiovascular: systolic murmur, irregularly irregular, tachycardia, edema ( trace) Respiratory: no respiratory distress, reduced air movement, expiratory wheeze Gastrointestinal: normoactive bowel sounds, soft, non-tender abdomen, no palpable masses Genitourinary: no bladder fullness, no bladder tenderness, no renal bruits Skin: no rashes or abrasions, no fluctuance, no induration Musculoskeletal: full muscle strength Neurologic: AAOx3, sensation intact bilaterally Psychiatric: interacting appropriately, not anxious, not encephalopathic, thought process linear ICD10 Worksheet Patient Problems: Problems Problem Status Onset Atrial fibrillation Acute Atrial fibrillation with RVR Acute Chest pain Acute Acute exacerbation of congestive heart failure Acute Exacerbation of asthma Acute S/P mitral valve replacement with bioprosthetic valve Acute ~01/31/17 S/P tricuspid valve repair Acute ~01/31/17 Asthma Chronic Chronic anticoagulation Chronic Chronic diastolic congestive heart failure Chronic Diet-controlled diabetes mellitus Chronic Longstanding persistent atrial fibrillation Chronic 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
[2018-02-01] MEDS ORDERED: SIMETHICONE 80 MG TAB CHEW PO ONE (16:52)
[2018-02-01] MEDS: SIMETHICONE 80 MG TAB CHEW PO SCH ×2 (20:54→22:02)
[2018-02-01] MEDS: IPRATROPIUM/ALBUTEROL 3 ML DEYVIAL IH PRN (21:20)
[2018-02-02] MEDS: IPRATROPIUM/ALBUTEROL 3 ML DEYVIAL IH PRN ×2 (03:36→10:13)
[2018-02-02 04:54] LABS: INR 2.58 (0.83-1.16); PROTIME(PATIENT) 27.6 SEC (12.0-15.0)
[2018-02-02] MEDS: predniSONE 20 MG TAB PO SCH (08:40)
[2018-02-02] MEDS: DILTIAZEM CD 300 MG CAP PO SCH (08:41)
[2018-02-02] MEDS: ATORVASTATIN CALCIUM 10 MG TAB PO SCH (08:42)
[2018-02-02] MEDS: ASPIRIN 81 MG CHEWABLE TAB PO SCH (08:42)
[2018-02-02] MEDS: SPIRONOLACTONE 25 MG TAB PO SCH (08:42)
[2018-02-02] MEDS: SIMETHICONE 80 MG TAB CHEW PO SCH ×4 (09:04→22:02)
[2018-02-02] MEDS: BECLOMETHASONE QVAR 80 REDIHALER 120 INH/10.6 GM MDI IH SCH ×2 (10:12→20:44)
[2018-02-02] MEDS: LEVALBUTEROL 0.63 MG/3 ML DEYVIAL IH SCH ×3 (14:06→22:36)
[2018-02-02] MEDS: IPRATROPIUM BROMIDE 0.5 MG/2.5 ML DEYVIAL IH SCH ×3 (14:06→22:36)
--- NOTE | 2018-02-02 14:14 | ASMTCMCOM ---
CM Note CM Note Notes: 02/02/2018 Case Management Note Discussed pt during rounds this morning. Fiberglass Bonding Machine Tender was present. Anticipating d/c tomorrow or Tuesday. Pt has O2 in her home at baseline. Pt is followed by [facility] for outpatient medical needs. There are no case management discharge needs identified. Case Management d/c poc: independent with follow up as directed. Case Management to follow. Date Signed: 02/02/2018 02:13 PM Electronically Signed By:Flower Almaraz RN
--- NOTE | 2018-02-02 14:38 | HOSPPROG ---
Hospitalist Progress Note Assessment/Plan: 72 yo F with hx of VHD, a fib, asthma presenting with dyspnea and hypoxemia found to be in rapid afib. 1. Acute on chronic hypoxemic respiratory insufficiency: Stable/improving. Multifactorial from pulm edema, RAD exacerbation. - Mgmt per below, wean O2 as able 2. Atrial fibrillation w/RVR: Rates better. Likely driven by airways disease - Off dilt gtt since yesterday evening, rates mostly 90-120s - Increased long-acting dilt to 300mg daily - Anticoagulated with warfarin 3. Acute exacerbation of RAD: Wheezing better - CXR neg, resp PCR neg - Pred 40mg qd - Schedule ipratropium/xopanex nebs 4. TD: Resolved - Holding diuresis 5. Acute on chronic diastolic CHF: Improved - Recheck BNP in AM - TTE without drastic change from prior - Holding diuresis 6. Thrombocytopenia: Plts stable. This is relatively chronic. No bleeding. 7. VHD: MV bioprosthetic replacement (h/o rheumatic heart disease), TV annuloplasty recently with Victor M, prior AV repair. TTE with stable gradients. 8. DM2: SSI, regular BG checks. 9. HTN: Home meds VTE ppx: therapeutic anticoagulation Dispo: Remain inpatient until rates controlled off dilt gtt, resp status improved. I suspect her HR will improve as her lungs improve. ADD in next 1-2 days. Subjective: Had some difficulty breathing this morning, better after nebulizer. HR good overnight but increased after breathing treatment. Now feeling best she has in a few days. Cough improving, no fevers. I evaluated the patient using a english interpretor Objective: Vital Signs Temp Pulse Resp BP Pulse Ox 37.0 C 104 H 20 111/62 92 02/02/18 11:52 02/02/18 11:52 02/02/18 11:52 02/02/18 11:52 02/02/18 11:52 Laboratory Results 02/02/18 03:25 02/02/18 03:05 02/01/18 02/02/18 02/03/18 05:59 05:59 05:59 Intake Total 885 440 Output Total 850 300 Balance 35 140 PT 27.6 SEC (12.0-15.0) H 02/02/18 03:25 INR 2.58 (0.83-1.16) H 02/02/18 03:25 - Physical Exam Constitutional: no apparent distress, appears nourished, not in pain Eyes: PERRL, anicteric sclera, EOMI Ears, Nose, Mouth, Throat: moist mucous membranes, hearing normal, ears appear normal, no oral mucosal ulcers Cardiovascular: systolic murmur, irregularly irregular, tachycardia, No JVD, No edema Respiratory: no respiratory distress, reduced air movement, No expiratory wheeze Gastrointestinal: normoactive bowel sounds, soft, non-tender abdomen, no palpable masses Genitourinary: no bladder fullness, no bladder tenderness, no renal bruits Skin: no rashes or abrasions, no fluctuance, no induration Musculoskeletal: full muscle strength, no muscle tenderness, normal joint ROM Neurologic: AAOx3, sensation intact bilaterally Psychiatric: interacting appropriately, not anxious, not encephalopathic, thought process linear ICD10 Worksheet Patient Problems: Problems Problem Status Onset Atrial fibrillation Acute Atrial fibrillation with RVR Acute Chest pain Acute Acute exacerbation of congestive heart failure Acute Exacerbation of asthma Acute S/P mitral valve replacement with bioprosthetic valve Acute ~01/31/17 S/P tricuspid valve repair Acute ~01/31/17 Asthma Chronic Chronic anticoagulation Chronic Chronic diastolic congestive heart failure Chronic Diet-controlled diabetes mellitus Chronic Longstanding persistent atrial fibrillation Chronic 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
[2018-02-02] MEDS: WARFARIN SODIUM 2 MG TAB PO SCH (16:34)
[2018-02-03 04:11] LABS: INR 2.11 (0.83-1.16); PROTIME(PATIENT) 23.7 SEC (12.0-15.0)
[2018-02-03] MEDS: IPRATROPIUM BROMIDE 0.5 MG/2.5 ML DEYVIAL IH SCH ×4 (05:55→23:48)
[2018-02-03] MEDS: LEVALBUTEROL 0.63 MG/3 ML DEYVIAL IH SCH ×4 (05:55→23:48)
[2018-02-03] MEDS: oxyCODONE IR 5 MG TAB PO PRN ×3 (07:51→20:56)
[2018-02-03] MEDS: ATORVASTATIN CALCIUM 10 MG TAB PO SCH (07:53)
[2018-02-03] MEDS: predniSONE 20 MG TAB PO SCH (07:53)
[2018-02-03] MEDS: DILTIAZEM CD 300 MG CAP PO SCH (07:53)
[2018-02-03] MEDS: SIMETHICONE 80 MG TAB CHEW PO SCH ×4 (07:53→20:57)
[2018-02-03] MEDS: SPIRONOLACTONE 25 MG TAB PO SCH (07:53)
[2018-02-03] MEDS: ASPIRIN 81 MG CHEWABLE TAB PO SCH (07:54)
[2018-02-03] MEDS ORDERED: MECLIZINE HCL 12.5 MG TAB PO ONE (09:52)
--- NOTE | 2018-02-03 09:59 | HOSPPROG ---
Hospitalist Progress Note Assessment/Plan: 72 yo F with hx of VHD, a fib, asthma presenting with dyspnea and hypoxemia found to be in rapid afib. 1. Acute on chronic hypoxemic respiratory insufficiency: Stable/improving. Multifactorial from pulm edema, RAD exacerbation. - Mgmt per below, wean O2 as able 2. Atrial fibrillation w/RVR: Rates better. Likely driven by airways disease. Off dilt gtt. - Increased long-acting dilt to 300mg daily - Anticoagulated with warfarin 3. Acute exacerbation of RAD: No more wheezing. CXR and resp PCR neg. - Pred 40mg qd (day 5), scheduled ipratropium/xopanex nebs 4. Acute on chronic diastolic CHF: BNP up a bit from admit, had held diuresis with td. TTE stable - Restart diuretics 5. Dizziness: New this AM. Low suspicion for embolic stroke (afib) given un- interrupted anticoagulation - Trial meclizine, ordered PT 6. TD: Resolved, monitor daily 7. Thrombocytopenia: Plts stable. This is relatively chronic. No bleeding. 8. VHD: MV bioprosthetic replacement (h/o rheumatic heart disease), TV annuloplasty recently with Victor M, prior AV repair. TTE with stable gradients. 9. DM2: SSI, regular BG checks. 10. HTN: Home meds VTE ppx: therapeutic anticoagulation Dispo: Remain inpatient for ongoing diuresis. Anticipated date of discharge tomorrow. Subjective: Breathing well, no cough, no chest pain, no leg swelling. She acutely began to feel dizzy this AM while eating breakfast. This was associated with nausea. Not positional. Waite dizzy while walking. Slightly better now. Also having some left abdominal pain radiating around to her back. Objective: Vital Signs Temp Pulse Resp BP Pulse Ox 36.6 C 92 20 98/56 L 92 02/03/18 07:41 02/03/18 07:41 02/03/18 07:41 02/03/18 07:41 02/03/18 07:41 Laboratory Results 02/02/18 03:25 02/02/18 03:05 02/02/18 02/03/18 02/04/18 05:59 05:59 05:59 Intake Total 440 600 Output Total 300 2250 Balance 140 -1650 PT 23.7 SEC (12.0-15.0) H 02/03/18 03:22 INR 2.11 (0.83-1.16) H 02/03/18 03:22 - Physical Exam Constitutional: no apparent distress, appears nourished, not in pain, obese Eyes: PERRL, anicteric sclera, EOMI Ears, Nose, Mouth, Throat: moist mucous membranes, hearing normal, ears appear normal, no oral mucosal ulcers Cardiovascular: systolic murmur, JVD, tachycardia, edema (trace in BLE) Respiratory: no respiratory distress, no rales or rhonchi, clear to auscultation , No expiratory wheeze Gastrointestinal: normoactive bowel sounds, soft, non-tender abdomen, no palpable masses Genitourinary: no bladder fullness, no bladder tenderness, no renal bruits Skin: no rashes or abrasions, no fluctuance, no induration Musculoskeletal: full muscle strength, no muscle tenderness, normal joint ROM Neurologic: AAOx3, sensation intact bilaterally Psychiatric: interacting appropriately, not anxious, not encephalopathic, thought process linear ICD10 Worksheet Patient Problems: Problems Problem Status Onset Atrial fibrillation Acute Atrial fibrillation with RVR Acute Chest pain Acute Acute exacerbation of congestive heart failure Acute Exacerbation of asthma Acute S/P mitral valve replacement with bioprosthetic valve Acute ~01/31/17 S/P tricuspid valve repair Acute ~01/31/17 Asthma Chronic Chronic anticoagulation Chronic Chronic diastolic congestive heart failure Chronic Diet-controlled diabetes mellitus Chronic Longstanding persistent atrial fibrillation Chronic 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
[2018-02-03] MEDS: BECLOMETHASONE QVAR 80 REDIHALER 120 INH/10.6 GM MDI IH SCH ×2 (10:55→20:40)
[2018-02-03] MEDS: WARFARIN SODIUM 2 MG TAB PO SCH (15:24)
[2018-02-03] MEDS: FUROSEMIDE 20 MG/2 ML VIAL IVP SCH (15:24)
[2018-02-04 04:33] LABS: INR 2.1 (0.83-1.16); PROTIME(PATIENT) 23.6 SEC (12.0-15.0)
[2018-02-04] MEDS: IPRATROPIUM BROMIDE 0.5 MG/2.5 ML DEYVIAL IH SCH ×4 (05:25→22:51)
[2018-02-04] MEDS: LEVALBUTEROL 0.63 MG/3 ML DEYVIAL IH SCH ×4 (05:25→22:51)
[2018-02-04] MEDS: predniSONE 20 MG TAB PO SCH (09:15)
[2018-02-04] MEDS: ATORVASTATIN CALCIUM 10 MG TAB PO SCH (09:15)
[2018-02-04] MEDS: FUROSEMIDE 20 MG/2 ML VIAL IVP SCH (09:15)
[2018-02-04] MEDS: ASPIRIN 81 MG CHEWABLE TAB PO SCH (09:15)
[2018-02-04] MEDS: SPIRONOLACTONE 25 MG TAB PO SCH (09:15)
[2018-02-04] MEDS: SIMETHICONE 80 MG TAB CHEW PO SCH ×4 (09:15→22:05)
[2018-02-04] MEDS: DILTIAZEM CD 300 MG CAP PO SCH (09:15)
[2018-02-04] MEDS ORDERED: AMIODARONE HCL 100 ML IV ONE (09:48)
[2018-02-04] MEDS ORDERED: AMIODARONE HCL 200 ML IV ONE (09:48)
--- NOTE | 2018-02-04 09:49 | HOSPPROG ---
Hospitalist Progress Note Assessment/Plan: # acute on chronic resp failure (baseline 2L) - resolved s/p breathing tx and diuresis # atrial fib with RVR - still quite tachy (up to 140) with sitting; suspect that RAD was driving tachycardia but still persistent - discussed with Dr Dugan - will start amiodarone and he will consult - cont warfarin # acute on chronic dCHF exacerbation - improved with diuresis but BNP elevated - suspect d/t rate - home diuretics # RAD with acute exacerbation - much better - stop pred, cont xopenex # TD - resolved # thrombocytopenia - stable # VHD - MV bioprosthetic replacement (h/o rheumatic heart disease), TV annuloplasty recently with Victor M, prior AV repair. TTE with stable gradients # DM2 - SSI # htn - home meds Subjective: cc SOB; better today, no CP; had abd mays lst night that resolved, eating this am Objective: Vital Signs Temp Pulse Resp BP Pulse Ox 37.1 C 102 H 15 111/87 H 93 02/04/18 07:37 02/04/18 07:37 02/04/18 07:37 02/04/18 07:37 02/04/18 07:37 Laboratory Results 02/02/18 03:25 02/04/18 03:18 02/03/18 02/04/18 02/05/18 05:59 05:59 05:59 Intake Total 600 960 Output Total 2250 1000 Balance -1650 -40 PT 23.6 SEC (12.0-15.0) H 02/04/18 03:18 INR 2.10 (0.83-1.16) H 02/04/18 03:18 chart reviewed CXR personally reviewed tele reviewed - Physical Exam Constitutional: no apparent distress, appears nourished Cardiovascular: no murmur, rub, or gallop, irregularly irregular, tachycardia Respiratory: no respiratory distress, no rales or rhonchi, clear to auscultation Gastrointestinal: soft, non-tender abdomen, no palpable masses, No guarding, No rebound, No distension ICD10 Worksheet Patient Problems: Problems Problem Status Onset Atrial fibrillation Acute Atrial fibrillation with RVR Acute Chest pain Acute Acute exacerbation of congestive heart failure Acute Exacerbation of asthma Acute S/P mitral valve replacement with bioprosthetic valve Acute ~01/31/17 S/P tricuspid valve repair Acute ~01/31/17 Asthma Chronic Chronic anticoagulation Chronic Chronic diastolic congestive heart failure Chronic Diet-controlled diabetes mellitus Chronic Longstanding persistent atrial fibrillation Chronic 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
[2018-02-04] MEDS: BECLOMETHASONE QVAR 80 REDIHALER 120 INH/10.6 GM MDI IH SCH ×2 (10:05→22:51)
[2018-02-04] MEDS: WARFARIN SODIUM 2 MG TAB PO SCH (13:58)
[2018-02-04] MEDS ORDERED: AMIODARONE HCL 540 MG in D5W 300 ML IV ONE (16:30)
[2018-02-05 04:33] LABS: PLATELET COUNT 130 10^3/uL (150-400)
[2018-02-05 04:35] LABS: INR 2.12 (0.83-1.16); PROTIME(PATIENT) 23.8 SEC (12.0-15.0)
[2018-02-05] MEDS: LEVALBUTEROL 0.63 MG/3 ML DEYVIAL IH SCH ×2 (05:50→10:38)
[2018-02-05] MEDS: IPRATROPIUM BROMIDE 0.5 MG/2.5 ML DEYVIAL IH SCH ×2 (05:50→10:38)
[2018-02-05] MEDS ORDERED: FUROSEMIDE 20 MG TAB PO SCH (09:00)
[2018-02-05] MEDS: SIMETHICONE 80 MG TAB CHEW PO SCH (09:30)
[2018-02-05] MEDS: ATORVASTATIN CALCIUM 10 MG TAB PO SCH (09:30)
[2018-02-05] MEDS: SPIRONOLACTONE 25 MG TAB PO SCH (09:30)
[2018-02-05] MEDS: DILTIAZEM CD 300 MG CAP PO SCH (09:30)
[2018-02-05] MEDS: ASPIRIN 81 MG CHEWABLE TAB PO SCH (09:30)
[2018-02-05] MEDS: BECLOMETHASONE QVAR 80 REDIHALER 120 INH/10.6 GM MDI IH SCH (10:38)
[2018-02-05 11:45] VITALS: BP 98/64
--- NOTE | 2018-02-05 12:30 | ASMTCMCOM ---
CM Note CM Note Notes: Patient medically cleared for discharge to home. Has [facility] and does not qualify for home services. Cm available if other needs arise. Plan: dc to home with family. Date Signed: 02/05/2018 12:27 PM Electronically Signed By:Susannah Adames RN
--- NOTE | 2018-02-05 13:20 | GDS ---
ALL DIAGNOSES: 1. Acute reactive airways exacerbation. 2. Acute on chronic hypoxic respiratory failure with a baseline of 2 L of oxygen. 3. Atrial fibrillation with rapid ventricular response. 4. Acute on chronic diastolic congestive heart failure exacerbation. 5. Acute kidney injury. 6. Thrombocytopenia, stable. 7. Valvular heart disease, status post mitral valve prosthetic replacement, as tricuspid valve annul oplasty, and a history of an aortic valve repair in the past. 8. Diabetes mellitus, type 2. HOSPITAL COURSE: A 72-year-old female who presented with shortness of breath as well as chest pain. This is likely multifactorial, including reactive airways disease exacerbation, as well as mild CHF exacerbation. She was treated with prednisone for asthma with significant improvement in her reactiv e airways disease. She additionally had a diastolic CHF exacerbation likely precipitated by atrial f ibrillation with rapid ventricular response. Her rates were very difficult to control. Suspect that this is likely due to her reactive airways disease exacerbation. Her diltiazem was slightly up-titr ated from 240 to 300 daily; however, this was not successful. Because of this, she underwent an IV a miodarone load, which has made significant improvement in her rate. Her rates are 80 to 100 while re sting or with activity respectively. She will be discharged on her previous home dose of diltiazem, as well as amiodarone 200 mg p.o. b.i.d. daily. She will follow up with Cardiology (Dr. Irlanda mehta) in 1 to 2 weeks. Otherwise, her other medications have not been changed. BILLING: I spent more than 30 minutes on the day of discharge coordinating care. /[id number]/MODL
== END 2018-02-05 14:14 | disposition home or self-care (01) | DRG 291 ==
LOC: F2W 18:15 → OBSVTOIN 20:21
PROVIDERS: ADMIT Internal Medicine; ATTEND Internal Medicine
DX: I50.33 Acute on chronic diastolic (congestive) heart failure (principal); J96.21 Acute and chronic respiratory failure with hypoxia; J45.901 Unspecified asthma with (acute) exacerbation; N17.9 Acute kidney failure, unspecified; E86.9 Volume depletion, unspecified; I48.2 Chronic atrial fibrillation; D69.6 Thrombocytopenia, unspecified; E11.9 Type 2 diabetes mellitus without complications; E78.5 Hyperlipidemia, unspecified; Z95.2 Presence of prosthetic heart valve
CPT/HCPCS: 82435-PO; 82565-PO; 82947-PO; 84132-PO; 84295-PO; 84484-PO; 84520-PO; 85014-PO; 96365; 97116-GP; 97161-GP; 97166-GO; 97535-GO; J0282; J1940; J2930; J7512